=== PATIENT | male | born 1960 | race Caucasian/White ===

== ENCOUNTER 2019-03-04 20:16 | Inpatient (IN) | payer OTHER ==
[2019-03-04] MEDS ORDERED: morphine CARPU-JECT 4 MG/1 ML DISP.SYRIN IVPUSH ONE (20:49)
[2019-03-04] MEDS ORDERED: ONDANSETRON 4 MG/2 ML VIAL IVPB ONE (20:49)
[2019-03-04] MEDS ORDERED: ONDANSETRON 4 MG/2 ML VIAL ONE (20:50)
[2019-03-04] MEDS ORDERED: SODIUM CHLORIDE 1,000 ML IV ONE (20:50)
[2019-03-04] MEDS ORDERED: morphine SULFATE 4 MG/ML VIAL ONE ×2 (20:51→21:28)
[2019-03-04 21:02] LABS: HEMATOCRIT 47.4 % (35.4-49); HEMOGLOBIN 15.8 GM/dl (11.7-16.9); MCH 29.9 pg (25.7-33.7); MCHC 33.4 g/dl (32.0-35.9); MEAN CELL VOLUME 89.5 fl (80-96); MEAN PLT VOLUME 7.9 fl (7.5-11.1); PLATELET COUNT 248 K/MM3 (134-434); RDW 12.4 % (11.9-15.9); WHITE BLOOD COUNT 20.7 K/mm3 (4.0-10.8)
[2019-03-04 21:19] LABS: ALBUMIN 4.6 g/dl (3.4-5.0); BILIRUBIN,TOTAL 1.5 mg/dl (0.2-1); CALCIUM 9.5 mg/dl (8.5-10); TOT PROT 7.6 g/dl (6.4-8.2)
[2019-03-04 21:26] LABS: POTASSIUM 3.6 mmol/L (3.5-5.1)
[2019-03-04] MEDS ORDERED: morphine CARPU-JECT 2 MG/1 ML DISP.SYRIN IVPUSH ONE (21:27)
[2019-03-04 21:55] LABS: PLATELET ESTIMATE ADEQUATE
[2019-03-04] MEDS ORDERED: HYDROmorphone HCL CARPU-JECT 1 MG/1 ML DISP.SYRIN ONE (23:06)
[2019-03-04] MEDS ORDERED: HYDROmorphone HCL CARPU-JECT 1 MG/1 ML DISP.SYRIN IVPUSH ONE (23:07)
[2019-03-04] MEDS ORDERED: PIPERACILLIN/TAZOB 4.5 GM 4.5 GM in DEXTROSE 5%-WATER 100 ML IVPB ONE (23:10)
[2019-03-04] MEDS ORDERED: PIPERACILLIN/TAZOBACTAM 4.5 GM VIAL IVPB ONE (23:16)
[2019-03-04] MEDS ORDERED: SODIUM CHLORIDE 1,000 ML IV SCH (23:45)
--- NOTE | 2019-03-04 23:58 | PDOC ---
Documentation entered by Mason Boyd SCRIBE, acting as scribe for Quan Cantu MD. Quan Cantu MD: This documentation has been prepared by the Deb eldridge Elijah, SCRIBE, under my direction and personally reviewed by me in its entirety. I confirm that the documentation accurately reflects all work , treatment, procedures, and medical decision making performed by me. History of Present Illness - General Chief Complaint: Vomiting/Diarrhea Stated Complaint: N/V/D ABDOMINAL PAIN Time Seen by Provider: 03/04/19 20:23 History Source: Patient Exam Limitations: No Limitations - History of Present Illness Initial Comments: 03/04/19 20:47 Assessment and plan: This is a 58-year-old male who comes in complaining of abdominal pain. Abdominal pain was initially diffuse and now is more right lower quadrant.Patient also complaining of nausea and vomiting multiple times over the last 24 hours however no diarrhea. On my exam patient did have moderate tenderness with questionable rebound on the right lower quadrant. Workup initiated including CBC, comp, EKG, CT abdomen and pelvis to rule out appendicitis/diverticulitis. 03/04/19 20:57 HPI Patient in a 58 year old male with a significant past medical history of seizures, who presents to the ED with 1 day of vomiting and abdominal pain beginning. The patient reports that his symptoms onset at 3am at which time he had multiple episodes of and 2 small bowel movements. The patient described the abdominal pain diffuse discomfort and as if he is constipated. Denies fever, chills, cough, SOB, or chest pain. Denies any recent dysuria, frequency, urgency or hematuria. PAST MEDICAL HISTORY: Seizure disorder PAST SURGICAL HISTORY: Neurosurgery (spinal fusions) and Orthopedic surgery FAMILY HISTORY: no pertinent history SOCIAL HISTORY: Pt lives with family and is employed. MEDICATIONS: reviewed ALLERGIES: As per nursing notes ROS General: No fevers or chills, no weakness, no weight loss HEENT: No change in vision. No sore throat,. No ear pain CardioVascular: No chest pain or shortness of breath Respiratory:No cough, or wheezing. Gastrointestinal: +Multiple episodes of vomiting +constipation. No diarrhea or No rectal bleeding Genitourinary: No dysuria, hematuria, or frequency Musculoskeletal: +Diffuse Abdominal Pain Neurologic: No headache, vertigo, dizziness or loss of consciousness Psychiatric: nor depression Skin: No rashes or easy bruising Endocrine: no increased thirst or abnormal weight change Allergic: no skin or latex allergy All other systems reviewed and normal PE General: Well-nourished well-developed individual, no acute distress HEENT: Throat: +Dry mucous membranes. Tonsils normal, no erythema or exudate Neck: Supple, no meningeal signs, no lymphadenopathy Eyes::Pupils equal reactive and round, extraocular motion intact Chest: Nontender to palpation Cardiac: S1-S2 normal, regular rate and rhythm, no murmurs rubs or gallops Respiratory: Lungs clear to auscultation bilateral Abdomen: +Mild tenderness to palpation to abdominals. + Moderate tenderness on palpation to Right Lower quadrant with mild guarding and questioned rebounding. +Bowel sounds present but decreased. Extremities: Warm, dry, no cyanosis, clubbing, or edema Skin: No rashes Neuro: Alert and oriented x3, nonfocal exam, grossly intact. Psych: Normal mood and affect 03/04/19 23:57 Patient's CAT scan shows acute appendicitis with microperforation. Discussed with the surgeon Dr. Cabrera who will admit the patient and take him to the operating room in the morning Patient will be transferred to [facility] as that is where he will need to go to the OR. Past History - Past Medical History Allergies/Adverse Reactions: Allergies Allergy/AdvReac Type Severity Reaction Status Date / Time No Known Allergies Allergy Verified 03/04/19 20:20 Home Medications: Ambulatory Orders Citalopram Hydrobromide [Citalopram HBr] 20 mg PO DAILY 03/04/19 Lamotrigine 100 mg PO DAILY 03/04/19 Metoprolol/Hydrochlorothiazide [Metoprolol-Hctz 50-25 mg Tab] 1 each PO DAILY Oxycodone HCl/Acetaminophen [Percocet 10-325 mg Tablet] 1 each PO BID PRN ED Treatment Course - LABORATORY CBC & Chemistry Diagram: 03/04/19 20:35 03/04/19 20:35 - RADIOLOGY Radiology Studies Ordered: Category Date Time Status ABDOMEN & PELVIS CT WITH CONTR [CT] Stat CT Scan 03/04/19 20:44 Ordered *DC/Admit/Observation/Transfer Diagnosis at time of Disposition: Perforated appendix - Discharge Dispostion Condition at time of disposition: Good Decision to Admit order: Yes - Referrals - Patient Instructions - Post Discharge Activity
[2019-03-05] MEDS ORDERED: ONDANSETRON 4 MG/2 ML VIAL IVPUSH PRN ×2 (01:39→11:46)
[2019-03-05] MEDS ORDERED: LACTATED RINGERS SOLUTION 1,000 ML IV SCH (01:45)
[2019-03-05] MEDS: morphine SULFATE 4 MG/ML VIAL IVPUSH PRN ×4 (02:31→22:04)
[2019-03-05] MEDS ORDERED: HEPARIN NA (PORCINE) 5,000 UNITS/ML 1ML VIAL SQ SCH (06:00)
--- NOTE | 2019-03-05 06:50 | HP ---
Admitting History and Physical - Admission Chief Complaint: abdominal pain History of Present Illness: 58 yo male who comes in complaining of abdominal pain. Abdominal pain was initially diffuse and now is more right lower quadrant.Patient also complaining of nausea and vomiting multiple times over the last 24 hours however no diarrhea. On my exam patient did have moderate tenderness with questionable rebound on the right lower quadrant. History Source: Patient, Medical Record Limitations to Obtaining History: No Limitations - Smoking History Smoking history: Never smoked - Alcohol/Substance Use Hx Alcohol Use: No (QUIT 2 YRS AGO) History of Substance Use: reports: None - Social History Usual Living Arrangement: Yes: With Spouse ADL: Independent History of Recent Travel: No Home Medications - Allergies Allergies/Adverse Reactions: Allergies Allergy/AdvReac Type Severity Reaction Status Date / Time No Known Allergies Allergy Verified 03/04/19 20:20 - Home Medications Home Medications: Ambulatory Orders Citalopram Hydrobromide [Citalopram HBr] 20 mg PO DAILY 03/04/19 Lamotrigine 100 mg PO DAILY 03/04/19 Metoprolol/Hydrochlorothiazide [Metoprolol-Hctz 50-25 mg Tab] 1 each PO DAILY Oxycodone HCl/Acetaminophen [Percocet 10-325 mg Tablet] 1 each PO BID PRN Review of Systems - Review of Systems Constitutional: denies: Chills, Fever Eyes: denies: Blind Spots, Recent Change in Vision HENT: denies: Difficult Swallowing, Throat Pain, Toothache Neck: denies: Decreased ROM, Lumps Cardiovascular: denies: Chest Pain, Palpitations Respiratory: denies: Cough, SOB Gastrointestinal: denies: Abdominal Pain, Bloating Genitourinary: denies: Discharge, Dysuria Breasts: reports: No Symptoms Reported. denies: Pain Musculoskeletal: denies: Back Pain, Crepitus, Joint Swelling, Muscle Pain Integumentary: denies: Bruising, Lesions, Lump Neurological: denies: Seizure, Syncope Endocrine: denies: Unexplained Weight Gain, Unexplained Weight Loss Hematology/Lymphatic: denies: Easily Bruised, Excessive Bleeding Psychiatric: denies: Anxiety, Depression Physical Examination Vital Signs: Vital Signs Temperature 98 F 03/05/19 05:39 Pulse Rate 93 H 03/05/19 05:39 Respiratory Rate 20 06/18/19 05:39 Blood Pressure 137/70 06/18/19 05:39 O2 Sat by Pulse Oximetry (%) 95 03/05/19 01:00 Vital Signs Period Temp Pulse Resp BP Sys/Cerna Pulse Ox Last 24 Hr 98 F-100.1 F 72-93 18-20 122-156/70-94 95-99 Constitutional: Yes: Well Nourished, No Distress, Calm Eyes: Yes: Conjunctiva Clear, EOM Intact HENT: Yes: Atraumatic, Normocephalic Neck: Yes: Supple, Trachea Midline Cardiovascular: Yes: Regular Rate and Rhythm, S1, S2 Respiratory: Yes: Regular, CTA Bilaterally Gastrointestinal: Yes: Normal Bowel Sounds, Soft, Tenderness (RLQ), Tenderness, Rebound Renal/: No: CVA Tenderness - Left, CVA Tenderness - Right Musculoskeletal: No: Joint Stiffness, Joint Swelling Extremities: No: Cool, Cyanosis Edema: No Peripheral Pulses WNL: Yes Peripheral Pulses: Left Radial: 2+, Right Radial: 2+, Left Doralis Pedis: 2+, Right Dorsalis Pedis: 2+, Left Femoral: 2+, Right Femoral: 2+ Neurological: Yes: Alert, Oriented Psychiatric: Yes: Alert, Oriented Labs: CBC, BMP 03/04/19 20:35 03/04/19 20:35 Imaging - Results Cat Scan: Report Reviewed, Image Reviewed (perforated appendicitis) Problem List - Problems (1) Perforated appendix Assessment/Plan: 58 yo male with Acute ruptured appendicitis NPO and IVF hydration IV antibiotics Adequate analgesia Discussed with patient risks, benefits and alternatives of laparoscopic possible open ectomy, including but not limited to bleeding, infection, injury to adjacent structures, leak or injury, intraabdominal abscess, incisional hernia, need for further procedures, ; alternatives include antibiotics, delayed or no surgery - risks of this include failure of nonoperative therapy, perforation, sepsis, recurrence, . Patient desires to proceed with operation - will take to OR for above. Informed consent signed for same. Thank you for the opportunity to participate in the care of this patient. Code(s): K35.32 - ACUTE APPENDICITIS WITH PERF AND LOC PERITONITIS, W/O ABSCS (2) Leukocytosis Code(s): D72.829 - ELEVATED WHITE BLOOD CELL COUNT, UNSPECIFIED Qualifiers: Leukocytosis type: bandemia Qualified Code(s): D72.825 - Bandemia (3) Abdominal pain in male Code(s): R10.9 - UNSPECIFIED ABDOMINAL PAIN (4) RLQ abdominal tenderness Code(s): R10.813 - RIGHT LOWER QUADRANT ABDOMINAL TENDERNESS Qualifiers: Presence of rebound: present Qualified Code(s): R10.823 - Right lower quadrant rebound abdominal tenderness
[2019-03-05] MEDS ORDERED: ACETAMINOPHEN 1000 MG/100 ML VIAL (NON FORMULARY) IVPB ONE ×2 (08:55→14:22)
[2019-03-05] MEDS ORDERED: BUPIVACAINE HCL/PF 0.5% (5MG/ML) 10 ML VIAL ONE (09:05)
[2019-03-05] MEDS ORDERED: BENZOIN TINCTURE SWABSTICK TP ONE (09:05)
[2019-03-05] MEDS ORDERED: BUPIVACAINE HCL/PF (5 MG/ML) 30 ML VIAL IJ ONE ×2 (11:10)
[2019-03-05] MEDS ORDERED: ACETAMINOPHEN INJECTION 100 ML IVPB ONE (11:29)
[2019-03-05] MEDS ORDERED: IBUPROFEN 800 MG/8 ML IJ IVPB ONE ×2 (11:29→14:22)
--- NOTE | 2019-03-05 11:37 | OP ---
Operative Note - Note: Operative Date: 03/05/19 Pre-Operative Diagnosis: acute ruptured appendicitis Operation: laparoscopic appendectomy, pirmary umbilical hernia Findings: ruptured appendix and umbilcal hernia Post-Operative Diagnosis: Same as Pre-op Surgeon: Dale Cabrera Anesthesiologist/SANITARY LANDFILL SUPERVISOR: Lorenza Carey Anesthesia: General, Local Specimens Removed: umbilcal hernia sac and ruptured appendix Estimated Blood Loss (mls): 10 Drains, Volume Out (mls): 400 (mendoza removed ) Fluid Volume Replaced (mls): 500 Operative Report Dictated: Yes
[2019-03-05] MEDS: HEPARIN NA (PORCINE) 5,000 UNITS/ML 1ML VIAL SQ SCH ×2 (13:57→22:04)
[2019-03-05] MEDS: LACTATED RINGERS SOLUTION 1,000 ML IV SCH (13:57)
[2019-03-05] MEDS ORDERED: oxyCODONE HCL 5 MG TABLET PO PRN (14:21)
--- NOTE | 2019-03-05 14:42 | CON.ID ---
Consult Consult Specialty:: infectious diseases Referred by:: Reason for Consultation:: ac appendicits - History of Present Illness Chief Complaint: abd pain History of Present Illness: 58 yo male who comes in complaining of abdominal pain.pain was mainly in rt sided of the abd which was associated with nausea and vomiting patient was seen by surgery and underwent appendectomy - History Source History Provided By: Patient Limitations to Obtaining History: No Limitations - Alcohol/Substance Use Hx Alcohol Use: No (QUIT 2 YRS AGO) History of Substance Use: reports: None - Smoking History Smoking history: Never smoked - Social History ADL: Independent History of Recent Travel: No Home Medications - Allergies Allergies/Adverse Reactions: Allergies Allergy/AdvReac Type Severity Reaction Status Date / Time No Known Allergies Allergy Verified 03/04/19 20:20 - Home Medications Home Medications: Ambulatory Orders Citalopram Hydrobromide [Citalopram HBr] 20 mg PO DAILY 03/04/19 Lamotrigine 100 mg PO DAILY 03/04/19 Metoprolol/Hydrochlorothiazide [Metoprolol-Hctz 50-25 mg Tab] 1 each PO DAILY Oxycodone HCl/Acetaminophen [Percocet 10-325 mg Tablet] 1 each PO BID PRN Physical Exam Vital Signs: Vital Signs Temperature 98.1 F 03/05/19 13:50 Pulse Rate 79 03/05/19 13:50 Respiratory Rate 20 03/05/19 13:50 Blood Pressure 96/65 03/05/19 13:50 O2 Sat by Pulse Oximetry (%) 95 03/05/19 13:50 Labs: CBC, BMP 03/04/19 20:35 03/04/19 20:35
[2019-03-05] MEDS ORDERED: PIPERACILLIN/TAZOBACTAM 3.375 GM VIAL IVPB ONE (15:37)
[2019-03-05] MEDS ORDERED: DEXTROSE 5%-WATER - 50 ML IVPB ONE (15:38)
[2019-03-05] MEDS ORDERED: MIDAZOLAM HCL 2 MG/2 ML SINGLE DOSE VIAL ONE (15:44)
[2019-03-05] MEDS: PIPERACILLIN/TAZOB 3.375 GM 3.375 GM in DEXTROSE 5%-WATER - 50 ML IVPB SCH ×2 (15:46→18:44)
[2019-03-05] MEDS ORDERED: ACETAMINOPHEN 1000 MG/100 ML VIAL (NON FORMULARY) IVPB PRN (20:27)
[2019-03-05] MEDS: ACETAMINOPHEN 1000 MG/100 ML VIAL (NON FORMULARY) IVPB PRN (20:40)
[2019-03-06] MEDS ORDERED: PIPERACILLIN/TAZOBACTAM 3.375 GM VIAL IVPB ONE ×3 (01:01→17:36)
[2019-03-06] MEDS ORDERED: DEXTROSE 5%-WATER - 50 ML IVPB ONE ×3 (01:02→17:36)
[2019-03-06] MEDS: PIPERACILLIN/TAZOB 3.375 GM 3.375 GM in DEXTROSE 5%-WATER - 50 ML IVPB SCH ×3 (02:01→19:14)
[2019-03-06] MEDS: morphine SULFATE 4 MG/ML VIAL IVPUSH PRN ×2 (02:01→09:08)
[2019-03-06] MEDS: HEPARIN NA (PORCINE) 5,000 UNITS/ML 1ML VIAL SQ SCH ×3 (06:20→21:47)
[2019-03-06] MEDS: ACETAMINOPHEN 1000 MG/100 ML VIAL (NON FORMULARY) IVPB PRN ×3 (06:21→21:47)
[2019-03-06 08:51] LABS: BASO % 0.3 % (0-2.0); HEMATOCRIT 40.9 % (35.4-49); MCH 30.1 pg (25.7-33.7); MCHC 34.3 g/dl (32.0-35.9); MEAN CELL VOLUME 87.8 fl (80-96); MEAN PLT VOLUME 7.9 fl (7.5-11.1); MONO % 4.9 % (3.8-10.2); NEUT % 91.8 % (42.8-82.8); PLATELET COUNT 158 K/MM3 (134-434); RBC 4.66 M/mm3 (4.00-5.60); RDW 13.3 % (11.9-15.9); WHITE BLOOD COUNT 12.8 K/mm3 (4.0-10.0)
[2019-03-06 09:23] LABS: BILIRUBIN,TOTAL 1.8 mg/dL (0.2-1); CALCIUM 8.3 mg/dL (8.5-10.1); CREATININE 0.9 mg/dL (0.55-1.3); POTASSIUM 3.2 mmol/L (3.5-5.1); TOT PROT 5.8 g/dl (6.4-8.2)
[2019-03-06 11:07] LABS: ANISOCYTOSIS 0; MACROCYTOSIS 0; PLATELET ESTIMATE NORMAL
--- NOTE | 2019-03-06 12:19 | PN ---
Progress Note, Physician History of Present Illness: patient stable had spiked fever - Current Medication List Current Medications: Active Medications Acetaminophen (Ofirmev Injection -) 1,000 mg IVPB Q6H PRN PRN Reason: PAIN OR FEVER Last Admin: 03/06/19 06:21 Dose: 1,000 mg Fentanyl (Sublimaze Injection -) 50 mcg IVPUSH [id number] PRN PRN Reason: PAIN-PACU ORDER X 4 DOSES ONLY Last Admin: 03/05/19 11:55 Dose: 50 mcg Heparin Sodium (Porcine) (Heparin -) 5,000 unit SQ TID ANABELLE Last Admin: 03/06/19 06:20 Dose: 5,000 unit Lactated Ringer's (Lactated Ringers Solution) 1,000 mls @ 125 mls/hr IV ASDIR ANABELLE Last Admin: 03/05/19 13:57 Dose: 125 mls/hr Piperacillin Sod/Tazobactam (Sod 3.375 gm/ Dextrose) 50 mls @ 100 mls/hr IVPB Q8H-IV ANABELLE; Protocol Last Admin: 03/06/19 10:11 Dose: 100 mls/hr Morphine Sulfate (Morphine Sulfate) 4 mg IVPUSH Q4H PRN PRN Reason: PAIN LEVEL 7 - 10 Last Admin: 03/06/19 09:08 Dose: 4 mg Ondansetron HCl (Zofran Injection) 4 mg IVPUSH Q6H PRN PRN Reason: NAUSEA Oxycodone HCl (Roxicodone -) 5 mg PO Q4H PRN PRN Reason: PAIN LEVEL 1-5 Last Admin: 03/05/19 20:43 Dose: 5 mg - Objective Vital Signs: Vital Signs Temperature 101.9 F H 03/06/19 06:00 Pulse Rate 99 H 03/06/19 06:09 Respiratory Rate 20 03/06/19 06:09 Blood Pressure 134/71 03/06/19 06:09 O2 Sat by Pulse Oximetry (%) 95 03/05/19 21:00 Constitutional: Yes: Calm Eyes: Yes: Conjunctiva Clear Cardiovascular: Yes: Regular Rate and Rhythm Respiratory: Yes: Regular, CTA Bilaterally Gastrointestinal: Yes: Soft, Other Musculoskeletal: Yes: WNL Extremities: Yes: WNL Neurological: Yes: Alert, Oriented Psychiatric: Yes: Alert, Oriented Labs: CBC, BMP 03/06/19 07:24 03/06/19 07:24 Assessment/Plan Problem List - Problems (1) Perforated appendix Code(s): K35.32 - ACUTE APPENDICITIS WITH PERF AND LOC PERITONITIS, W/O ABSCS (2) Leukocytosis Code(s): D72.829 - ELEVATED WHITE BLOOD CELL COUNT, UNSPECIFIED Qualifiers: Leukocytosis type: bandemia Qualified Code(s): D72.825 - Bandemia (3) Abdominal pain in male Code(s): R10.9 - UNSPECIFIED ABDOMINAL PAIN (4) RLQ abdominal tenderness Code(s): R10.813 - RIGHT LOWER QUADRANT ABDOMINAL TENDERNESS Qualifiers: Presence of rebound: present Qualified Code(s): R10.823 - Right lower quadrant rebound abdominal tenderness wbc trending down plan continue abx monitor for fevers rest as per surgery still with pain
--- NOTE | 2019-03-06 13:05 | PN ---
Progress Note, Physician Chief Complaint: abdominal pain History of Present Illness: 58 yo male who comes in complaining of abdominal pain. Abdominal pain was initially diffuse and now is more right lower quadrant. He has been stable postoperatively but has been febrile. - Current Medication List Current Medications: Active Medications Acetaminophen (Ofirmev Injection -) 1,000 mg IVPB Q6H PRN PRN Reason: PAIN OR FEVER Last Admin: 03/06/19 06:21 Dose: 1,000 mg Fentanyl (Sublimaze Injection -) 50 mcg IVPUSH [id number] PRN PRN Reason: PAIN-PACU ORDER X 4 DOSES ONLY Last Admin: 03/05/19 11:55 Dose: 50 mcg Heparin Sodium (Porcine) (Heparin -) 5,000 unit SQ TID ANABELLE Last Admin: 03/06/19 06:20 Dose: 5,000 unit Lactated Ringer's (Lactated Ringers Solution) 1,000 mls @ 125 mls/hr IV ASDIR ANABELLE Last Admin: 03/05/19 13:57 Dose: 125 mls/hr Piperacillin Sod/Tazobactam (Sod 3.375 gm/ Dextrose) 50 mls @ 100 mls/hr IVPB Q8H-IV ANABELLE; Protocol Last Admin: 03/06/19 10:11 Dose: 100 mls/hr Morphine Sulfate (Morphine Sulfate) 4 mg IVPUSH Q4H PRN PRN Reason: PAIN LEVEL 7 - 10 Last Admin: 03/06/19 09:08 Dose: 4 mg Ondansetron HCl (Zofran Injection) 4 mg IVPUSH Q6H PRN PRN Reason: NAUSEA Oxycodone HCl (Roxicodone -) 5 mg PO Q4H PRN PRN Reason: PAIN LEVEL 1-5 Last Admin: 03/05/19 20:43 Dose: 5 mg - Objective Vital Signs: Vital Signs Temperature 101.9 F H 03/06/19 06:00 Pulse Rate 99 H 03/06/19 06:09 Respiratory Rate 20 03/06/19 06:09 Blood Pressure 134/71 03/06/19 06:09 O2 Sat by Pulse Oximetry (%) 95 03/05/19 21:00 Vital Signs Period Temp Pulse Resp BP Sys/Cerna Pulse Ox Last 24 Hr 98.1 F-103 F 79-99 16-20 96-134/54-71 10-98 Intake & Output 03/05/19 03/06/19 03/06/19 23:59 07:59 15:59 Intake Total 650 1075 Output Total 350 200 Balance 300 875 Intake: IV 500 875 Lactated Ringers Solution 500 875 1,000 ml @ 125 mls/hr IV ASDIR ANABELLE Rx#: [id number] IVPB 100 150 Oral 50 50 Output: Urine 350 200 Void 350 200 Other: Voiding Method Urinal Urinal Urinal Bowel Movement No No Constitutional: Yes: Well Nourished, No Distress, Calm Eyes: Yes: Conjunctiva Clear, EOM Intact HENT: Yes: Atraumatic, Normocephalic Neck: Yes: Supple, Trachea Midline Cardiovascular: Yes: Regular Rate and Rhythm, S1, S2 Respiratory: Yes: Regular, CTA Bilaterally Gastrointestinal: Yes: Normal Bowel Sounds, Soft, Abdomen, Obese, Distention, Tenderness (periumbilcal) ...Rectal Exam: No: Deferred Genitourinary: No: CVA Tenderness - Left, CVA Tenderness - Right Breast(s): Yes: Gynecomastia. No: Mass Musculoskeletal: No: Muscle Pain, Muscle Weakness Extremities: No: Cool, Cyanosis Edema: No Peripheral Pulses WNL: Yes Wound/Incision: Yes: Clean/Dry, Well Approximated, Open to air, Other Neurological: Yes: Alert, Oriented Psychiatric: Yes: Alert, Oriented Labs: CBC, BMP 03/06/19 07:24 03/06/19 07:24 Problem List - Problems (1) Perforated appendix Assessment/Plan: 58 yo male with Acute ruptured appendicitis POD#1 s/p laparoscopic appendectomy , gross fecal comtamination of the abdomen, now high post op fevers NPO and IVF hydration IV antibiotics Adequate analgesia Medicine consult evaluate for resuming antiseizure medication Dior culture f/u with ID Code(s): K35.32 - ACUTE APPENDICITIS WITH PERF AND LOC PERITONITIS, W/O ABSCS (2) Leukocytosis Code(s): D72.829 - ELEVATED WHITE BLOOD CELL COUNT, UNSPECIFIED Qualifiers: Leukocytosis type: bandemia Qualified Code(s): D72.825 - Bandemia (3) Abdominal pain in male Code(s): R10.9 - UNSPECIFIED ABDOMINAL PAIN (4) RLQ abdominal tenderness Code(s): R10.813 - RIGHT LOWER QUADRANT ABDOMINAL TENDERNESS Qualifiers: Presence of rebound: present Qualified Code(s): R10.823 - Right lower quadrant rebound abdominal tenderness
[2019-03-06] MEDS: LACTATED RINGERS SOLUTION 1,000 ML IV SCH (14:39)
--- NOTE | 2019-03-06 16:46 | PATH ---
Surgical Pathology Report Patient Name: MARK PAINTING [facility]. Rec. #: [id number] /Age/Gender: 1960 (Age: 58) / M Account: [id number] Location: [facility] R Taken: 03/05/2019 Received: 03/05/2019 Reported: 03/06/2019 Physicians: Dale Cabrera M.D. Specimen(s) Received A: UMBILICAL HERNIA SAC B: APPENDIX Clinical History Ruptured appendix Final Diagnosis A. UMBILICAL HERNIA SAC, REPAIR: FIBROADIPOSE TISSUE COMPATIBLE WITH HERNIA SAC. B. APPENDIX, APPENDECTOMY: MARKED ACUTE GANGRENOUS APPENDICITIS. Electronically Signed Ellen Iraheta M.D. Gross Description A. Received in formalin labeled "umbilical hernia sac," is a 2.2 x 1.1 x 1.0 cm alarcon-yellow portion of fibromembranous tissue with attached fat, consistent with a hernia sac. Clinical Haematologist sections are submitted in one cassette. B. Received in formalin labeled "appendix," is a 6 cm in length markedly torn and disrupted gangrenous-appearing appendix with a stapled margin of resection and minimal attached fat. The specimen displays multifocal defects. Sectioning reveals gangrenous tissue with fecal material within the lumen. The wall of the appendix averages 0.1 cm in thickness. Clinical Haematologist sections are submitted in one cassette. /03/05/2019 saudi03/05/2019
[2019-03-06] MEDS: ONDANSETRON 4 MG/2 ML VIAL IVPUSH SCH (18:17)
[2019-03-06] MEDS ORDERED: IBUPROFEN 400 MG TABLET (FP) PO PRN (19:35)
[2019-03-06] MEDS ORDERED: LACTATED RINGERS SOLUTION 1000 ML INFUS.BAG IV ONE (19:45)
[2019-03-07] MEDS: ONDANSETRON 4 MG/2 ML VIAL IVPUSH SCH ×5 (00:12→23:15)
[2019-03-07] MEDS: KCL 10 MEQ IVPB 10 MEQ/100 ML INFUS.BAG IVPB SCH ×3 (00:12→04:34)
--- NOTE | 2019-03-07 00:19 | CONSULT ---
Consult - text type - Consultation Consultation Note: Patient in a 58 year old male with a significant past medical history of seizures, who presents to the ED with 1 day of vomiting and abdominal pain. The patient reports that his symptoms onset at 3am at which time he had multiple episodes of vomiting and 2 small bowel movements. The patient described the abdominal pain diffuse discomfort and as if he is constipated. Denies fever, chills, cough, SOB, or chest pain. Denies any recent dysuria, frequency, urgency or hematuria. PAST MEDICAL HISTORY: Seizure disorder on Lamictil - last seizure about 2-3 yrs ago Petit mal PAST SURGICAL HISTORY: Neurosurgery (spinal fusions) and Orthopedic surgery FAMILY HISTORY: no pertinent history SOCIAL HISTORY: Pt lives with family and is employed. MEDICATIONS: reviewed Patient underwent laparoscopic appendectomy on 03/05/19 - found to have perforated Appendix, Post op course significant for persistent fever / abdominal pain / nausea & vomiting. He continues to be febrile and is not tolerating liquid PO. Vital Signs Period Temp Pulse Resp BP Sys/Cerna Pulse Ox Last 24 Hr 99.4 F-102.7 F 88-122 18-20 121-151/59-82 laying in bed son at bedside states less abdominal pain than prior to surgery neck - JVD heart Sd1/S2 lungs clear bilat abd ++tenderness RLQ / + distended +BS ext no calf tenderness no edema CBC, BMP 03/06/19 07:24 03/06/19 07:24 Active Medications Fentanyl (Sublimaze Injection -) 50 mcg IVPUSH [id number] PRN PRN Reason: PAIN-PACU ORDER X 4 DOSES ONLY Last Admin: 03/05/19 11:55 Dose: 50 mcg Heparin Sodium (Porcine) (Heparin -) 5,000 unit SQ TID ANABELLE Last Admin: 03/06/19 21:47 Dose: 5,000 unit Lactated Ringer's (Lactated Ringers Solution) 1,000 mls @ 125 mls/hr IV ASDIR ANABELLE Last Admin: 03/06/19 14:39 Dose: 125 mls/hr Piperacillin Sod/Tazobactam (Sod 3.375 gm/ Dextrose) 50 mls @ 100 mls/hr IVPB Q8H-IV ANABELLE; Protocol Last Admin: 03/06/19 19:14 Dose: 100 mls/hr Ibuprofen (Motrin -) 800 mg PO Q8H PRN PRN Reason: FEVER Morphine Sulfate (Morphine Sulfate) 4 mg IVPUSH Q4H PRN PRN Reason: PAIN LEVEL 7 - 10 Last Admin: 03/06/19 09:08 Dose: 4 mg Ondansetron HCl (Zofran Injection) 4 mg IVPUSH Q6H ANABELLE Last Admin: 03/07/19 00:12 Dose: Not Given Oxycodone HCl (Roxicodone -) 5 mg PO Q4H PRN PRN Reason: PAIN LEVEL 1-5 Last Admin: 03/05/19 20:43 Dose: 5 mg # Perforated Waldo / s/p lap appendectomy febrile - c/s done - tylenol 650 q 6H ID consulted - single abx -Zosyn if remains febrile will need CT of abd pain management ambulate as tolerated # Seizure disorder - petitie mal will resume lamictil when PO started # OA difficult ambulation due to OA will start neb treatment since patient will have limited ambulation
[2019-03-07] MEDS ORDERED: LORazepam 2 MG/ML SDV VIAL IVPUSH ONE (00:27)
[2019-03-07] MEDS: ACETAMINOPHEN 325 MG TABLET (FP) PO SCH ×2 (00:46→05:51)
[2019-03-07] MEDS ORDERED: PIPERACILLIN/TAZOBACTAM 3.375 GM VIAL IVPB ONE ×3 (01:37→17:04)
[2019-03-07] MEDS ORDERED: DEXTROSE 5%-WATER - 50 ML IVPB ONE ×3 (01:37→17:04)
[2019-03-07] MEDS: PIPERACILLIN/TAZOB 3.375 GM 3.375 GM in DEXTROSE 5%-WATER - 50 ML IVPB SCH ×3 (03:44→17:26)
[2019-03-07] MEDS: HEPARIN NA (PORCINE) 5,000 UNITS/ML 1ML VIAL SQ SCH ×3 (05:50→21:44)
[2019-03-07 06:51] LABS: BASO % 0.3 % (0-2.0); HEMATOCRIT 40.7 % (35.4-49); HEMOGLOBIN 14.1 GM/dL (11.7-16.9); LYMPH % 4.1 % (8-40); MCH 29.9 pg (25.7-33.7); MCHC 34.7 g/dl (32.0-35.9); MEAN CELL VOLUME 86.3 fl (80-96); MEAN PLT VOLUME 8.2 fl (7.5-11.1); MONO % 5.4 % (3.8-10.2); NEUT % 90.2 % (42.8-82.8); PLATELET COUNT 198 K/MM3 (134-434); RBC 4.71 M/mm3 (4.00-5.60); RDW 13.1 % (11.9-15.9); WHITE BLOOD COUNT 15.1 K/mm3 (4.0-10.0)
[2019-03-07 07:19] LABS: PHOSPHOROUS 1.5 mg/dL (2.5-4.9)
[2019-03-07] MEDS: ALBUTEROL SO4 2.5/IPRATROPIUM 0.5 INH SOL 3 ML VIAL.NEB. NEB SCH ×4 (08:14→19:55)
[2019-03-07] MEDS: PANTOPRAZOLE SODIUM 40 MG VIAL IVPUSH SCH (10:32)
[2019-03-07 12:10] VITALS: BMI 33.7
--- NOTE | 2019-03-07 12:27 | PN ---
Progress Note (short form) - Note Progress Note: 58 y/o male found lying in bed. Family present at bedside. Reports feeling feverish and vomiting x 2 this am. Denies pain and discomfort. Vital Signs Period Temp Pulse Resp BP Sys/Cerna Pulse Ox Last 24 Hr 99.0 F-102.7 F 93-122 20-20 127-151/75-93 92-94 CBC, BMP 03/07/19 05:56 03/06/19 07:24 HEENT- NL Neck- supple Lungs- CTAB Heart- S1/S2 Abd- obese, distended, tender Ext- no LE edema Active Medications Acetaminophen (Ofirmev Injection -) 1,000 mg IVPB Q6H PRN PRN Reason: FEVER Albuterol/Ipratropium (Duoneb -) 1 amp NEB RQID [facility] Last Admin: 03/07/19 11:14 Dose: Not Given Diphenhydramine HCl (Benadryl Injection -) 50 mg IVPUSH ONCE PRN PRN Reason: INSOMNIA Fentanyl (Sublimaze Injection -) 50 mcg IVPUSH [id number] PRN PRN Reason: PAIN-PACU ORDER X 4 DOSES ONLY Last Admin: 03/05/19 11:55 Dose: 50 mcg Heparin Sodium (Porcine) (Heparin -) 5,000 unit SQ TID [facility] Last Admin: 03/07/19 05:50 Dose: 5,000 unit Lactated Ringer's (Lactated Ringers Solution) 1,000 mls @ 125 mls/hr IV ASDIR ANABELLE Last Admin: 03/06/19 14:39 Dose: 125 mls/hr Piperacillin Sod/Tazobactam (Sod 3.375 gm/ Dextrose) 50 mls @ 100 mls/hr IVPB Q8H-IV ANABELLE; Protocol Last Admin: 03/07/19 10:32 Dose: 100 mls/hr Ibuprofen (Motrin -) 800 mg PO Q8H PRN PRN Reason: FEVER Morphine Sulfate (Morphine Sulfate) 4 mg IVPUSH Q4H PRN PRN Reason: PAIN LEVEL 7 - 10 Last Admin: 03/06/19 09:08 Dose: 4 mg Ondansetron HCl (Zofran Injection) 4 mg IVPUSH Q6H [facility] Last Admin: 03/07/19 10:33 Dose: 4 mg Oxycodone HCl (Roxicodone -) 5 mg PO Q4H PRN PRN Reason: PAIN LEVEL 1-5 Last Admin: 03/05/19 20:43 Dose: 5 mg Pantoprazole Sodium (Protonix Iv) 40 mg IVPUSH DAILY ANABELLE Last Admin: 03/07/19 10:32 Dose: 40 mg # Perforated Waldo / s/p lap appendectomy afebrile at present Cont tylenol 1000mg q 6 prn/ Motrin prn for fever ID consulted - single abx -Zosyn cont Zofran for nausea and vomiting GI consult for possible NG tube # pain management Morphine/ Oxycodone/ Fentanyl prn ambulate as tolerated # Insomnia IV Benadryl ordered # Seizure disorder - petit mal Neuro consult requested as pt NPO Unable to take Lamictal at this time # OA difficulty with ambulation due to OA
[2019-03-07] MEDS: LACTATED RINGERS SOLUTION 1,000 ML IV SCH ×2 (14:20→21:43)
[2019-03-07] MEDS: ACETAMINOPHEN 1000 MG/100 ML VIAL (NON FORMULARY) IVPB PRN ×2 (14:43→21:43)
--- NOTE | 2019-03-07 15:25 | CON.GI ---
Consult Consult Specialty:: GI: For Dr. Rincon who resumes coverage 03/08 Referred by:: Dr. Tilley Reason for Consultation:: "patient needs an NGT" - History of Present Illness Chief Complaint: Nausea, vomiting, abdominal pain History of Present Illness: 58M admitted for evaluation of abdominal pain 03/04. CT scan noted right hydronephrosis and appendicitis with microperforation. He had laparoscopic appendectomy performed 03/04. Has noted increasing abdominal distention since that time. he did not receive any opiate alalgesia yesterday. No BM / flatus as of yet. Developed abdominal pain, nausea, last night and vomited. NGT attempted today unsuccessfully by the nursing staff. Called by FREDY Ku to place an NGT. Patient vomited significant amount of dark liquid when NGT attempted. He had a colonoscopy a few months ago in [place]. - History Source History Provided By: Patient, Family Member, Medical Record Limitations to Obtaining History: No Limitations - Past Medical History Cardio/Vascular: Yes: HTN Hepatobiliary: Yes: Other (hereditary hemochromatosis and undergoes phlebotomy) Musculoskeletal: Yes: Osteoarthritis - Past Surgical History Past Surgical History: Yes: Joint Replacement (TKR bilaterally, right hip replacement) - Alcohol/Substance Use Hx Alcohol Use: Yes (QUIT 2 YRS AGO) History of Substance Use: reports: None - Smoking History Smoking history: Never smoked - Social History Usual Living Arrangement: With Spouse ADL: Independent 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 Place of : [facility] History of Recent Travel: No Home Medications - Allergies Allergies/Adverse Reactions: Allergies Allergy/AdvReac Type Severity Reaction Status Date / Time aloe Allergy Unknown Verified 03/07/19 15:28 - Home Medications Home Medications: Ambulatory Orders Citalopram Hydrobromide [Citalopram HBr] 20 mg PO DAILY 03/04/19 Lamotrigine 100 mg PO DAILY 03/04/19 Metoprolol/Hydrochlorothiazide [Metoprolol-Hctz 50-25 mg Tab] 1 each PO DAILY Oxycodone HCl/Acetaminophen [Percocet 10-325 mg Tablet] 1 each PO BID PRN Family Disease History - Family Disease History Family Disease History: Other: Father (: 57: Liver cancer (HH)), Mother ( Alive: healthy), Brother (4, healthy), Sister (3, healthy), Son (2, healthy (1 HH mutation carrier) ), Daughter (1, healthy) Other Family History: No family h/o colon cancer Review of Systems - Review of Systems Constitutional: reports: Chills Cardiovascular: denies: Chest Pain Respiratory: denies: SOB Gastrointestinal: reports: Abdominal Pain, Bloating, Nausea, Vomiting. denies: Melena, Rectal Bleeding Physical Exam-GI Vital Signs: Vital Signs Temperature 100.8 F H 03/07/19 14:38 Pulse Rate 91 H 03/07/19 14:38 Respiratory Rate 18 03/07/19 14:38 Blood Pressure 121/73 03/07/19 14:38 O2 Sat by Pulse Oximetry (%) 92 L 03/07/19 09:00 Constitutional: Yes: Calm Eyes: No: Sclera Icterus Cardiovascular: Yes: Regular Rate and Rhythm. No: Murmur Respiratory: Yes: CTA Bilaterally Gastrointestinal Inspection: Yes: Distention, Scars (trochar scar, umbilical surgical scar.) ...Auscultate: Yes: Hypoactive Bowel Sounds (higher pitched) ...Palpate: Yes: Soft, Tenderness (TTP RLQ) ...Percussion: Yes: Tympanitic Edema: No (No LE edema) Neurological: Yes: Alert Labs: CBC, BMP 03/07/19 05:56 03/06/19 07:24 Hepatic Panel Total Bilirubin 1.8 mg/dL (0.2-1) H 03/06/19 07:24 AST 11 U/L (15-37) L 03/06/19 07:24 ALT 13 U/L (13-61) 03/06/19 07:24 Alkaline Phosphatase 44 U/L (45-117) L 03/06/19 07:24 Albumin 3.0 g/dl (3.4-5.0) L 03/06/19 07:24 Problem List - Problems (1) Vomiting Assessment/Plan: Following laparoscopic appendectomy with post op fever Tympany and hypoactive, higher pitches bowel sounds suggestive of ileus vs. developing bowel obstruction NGT placed through Left nare without difficulty and tethered to his nose at the 55cm gama. air dominguez auscultated and dark gastric content suctioned. About 300cc was suctioned. Placed on medium wall suction Advise: CT abdomen without contrast ordered Surgical follow-up ID follow-up Aspiration precautions Code(s): R11.10 - VOMITING, UNSPECIFIED
--- NOTE | 2019-03-07 15:39 | PN ---
Progress Note, Physician History of Present Illness: continues to spike fever now withh ng tube for ct scan today - Current Medication List Current Medications: Active Medications Acetaminophen (Ofirmev Injection -) 1,000 mg IVPB Q6H PRN PRN Reason: FEVER Last Admin: 03/07/19 14:43 Dose: 1,000 mg Albuterol/Ipratropium (Duoneb -) 1 amp NEB RQID [facility] Last Admin: 03/07/19 11:14 Dose: Not Given Diphenhydramine HCl (Benadryl Injection -) 50 mg IVPUSH ONCE PRN PRN Reason: INSOMNIA Fentanyl (Sublimaze Injection -) 50 mcg IVPUSH [id number] PRN PRN Reason: PAIN-PACU ORDER X 4 DOSES ONLY Last Admin: 03/05/19 11:55 Dose: 50 mcg Heparin Sodium (Porcine) (Heparin -) 5,000 unit SQ TID [facility] Last Admin: 03/07/19 14:19 Dose: 5,000 unit Lactated Ringer's (Lactated Ringers Solution) 1,000 mls @ 125 mls/hr IV ASDIR [facility] Last Admin: 03/07/19 14:20 Dose: 125 mls/hr Piperacillin Sod/Tazobactam (Sod 3.375 gm/ Dextrose) 50 mls @ 100 mls/hr IVPB Q8H-IV [facility]; Protocol Last Admin: 03/07/19 10:32 Dose: 100 mls/hr Ibuprofen (Motrin -) 800 mg PO Q8H PRN PRN Reason: FEVER Morphine Sulfate (Morphine Sulfate) 4 mg IVPUSH Q4H PRN PRN Reason: PAIN LEVEL 7 - 10 Last Admin: 03/06/19 09:08 Dose: 4 mg Ondansetron HCl (Zofran Injection) 4 mg IVPUSH Q6H [facility] Last Admin: 03/07/19 10:33 Dose: 4 mg Oxycodone HCl (Roxicodone -) 5 mg PO Q4H PRN PRN Reason: PAIN LEVEL 1-5 Last Admin: 03/05/19 20:43 Dose: 5 mg Pantoprazole Sodium (Protonix Iv) 40 mg IVPUSH DAILY [facility] Last Admin: 03/07/19 10:32 Dose: 40 mg - Objective Vital Signs: Vital Signs Temperature 100.8 F H 06/20/19 14:38 Pulse Rate 91 H 03/07/19 14:38 Respiratory Rate 18 03/07/19 14:38 Blood Pressure 121/73 03/07/19 14:38 O2 Sat by Pulse Oximetry (%) 92 L 03/07/19 09:00 Constitutional: Yes: Calm, Mild Distress, Obese Cardiovascular: Yes: Regular Rate and Rhythm Respiratory: Yes: Regular, CTA Bilaterally Gastrointestinal: Yes: Other (absent bowel sound,ng tube in place) Musculoskeletal: Yes: WNL Extremities: Yes: WNL Neurological: Yes: Alert, Oriented Psychiatric: Yes: Alert, Oriented Labs: CBC, BMP 03/07/19 05:56 03/06/19 07:24 Assessment/Plan Problem List - Problems (1) Perforated appendix Code(s): K35.32 - ACUTE APPENDICITIS WITH PERF AND LOC PERITONITIS, W/O ABSCS (2) Leukocytosis Code(s): D72.829 - ELEVATED WHITE BLOOD CELL COUNT, UNSPECIFIED Qualifiers: Leukocytosis type: bandemia Qualified Code(s): D72.825 - Bandemia (3) Abdominal pain in male Code(s): R10.9 - UNSPECIFIED ABDOMINAL PAIN (4) RLQ abdominal tenderness Code(s): R10.813 - RIGHT LOWER QUADRANT ABDOMINAL TENDERNESS Qualifiers: Presence of rebound: present Qualified Code(s): R10.823 - Right lower quadrant rebound abdominal tenderness wbc trending down plan continue abx await for ct scan close watch rest as per the team
--- NOTE | 2019-03-07 19:17 | CONSULT ---
Consult - text type - Consultation Consultation Note: NEUROLOGY CONSULT GREATLY APPRECIATED: Events reviewed and discussed with Asia HUNTER and GERMÁN Rojas. This 58 yo RH man is retired and is here from from [place]. PMH sig for: seizure disorder, depression maintained on lamictal (short-acting? ) 100 mg qd and citalopram 10 mg qd. Surgical hx includes: LS surgery, B/L CTR, B/L TKR Hx of seizures since childhood accident, "petit-mal" in which he has a few second warning of "imbalance" and then eyes "roll back" and he looses consciousness. Was previously followed by neurologist in [place], and last seizure was approximately 6 years ago with a trial discontinuation of seizure medication. Admitted after acute abdomen, found with appendiceal abscess requiring surgical intervention and now NPO with NG tube. Has been without seizure medication since Monday (4 days). ROS significant for residual nocturnal pains in back, knees, hands that interrupt sleep. Notes previous EMG studies of legs done that were "normal." + bruxism FH++ 3 children with "growing pains" and bruxism WBC 20.7-> 15.1 MCV 86.3 KAREN: Cor reg. No bruit. Neck supple. Neg SLR. NGT in situ. NEURO: Awake, alert, responsive. OX [facility]. March 07, 2019. TRUMP CNII-CNXII: EOM's full. Full addison. No facial. Motor: No drift. Strength normal. Reflexes normal in arms, reduced in KJ's and AJ's B/L. Toes silent. Coordination: No FTN dystaxia Sensation: Normal to vibration. Romberg - Gait: Stiff, sl wide-based. Impression: Essentially normal neurological exam Toxic-Metabolic Encephalopathy (peritonitis) Seizure disorder by history Nocturnal parasthesia, bruxism suggest contribution of Restless Limbs Syndrome (RLS) Suggest: Continue antibiotics and IV hydration per ID Load leveteracitam 1 gram IVP, then leveteracitam 500 mg BID IVP then PO as soon as allowed. Check Fe++, TIBC, Iron, Ferritin Neuro f/u as outpatient for EEG, EMG's of the arms/legs and Rx for RLS Thank you very much, Boby White MD
[2019-03-07] MEDS ORDERED: levETIRAcetam 500 MG/5 ML INJECTION VIAL IVPB ONE (19:30)
[2019-03-07] MEDS: BENZOCAINE/MENTH/CETYLPYRD CL 1 EACH LOZENGE MM PRN (20:47)
[2019-03-08] MEDS ORDERED: DEXTROSE 5%-WATER - 50 ML IVPB ONE ×3 (02:53→15:13)
[2019-03-08] MEDS ORDERED: PIPERACILLIN/TAZOBACTAM 3.375 GM VIAL IVPB ONE ×3 (02:53→15:12)
[2019-03-08] MEDS: PIPERACILLIN/TAZOB 3.375 GM 3.375 GM in DEXTROSE 5%-WATER - 50 ML IVPB SCH ×3 (02:56→17:31)
[2019-03-08] MEDS: ONDANSETRON 4 MG/2 ML VIAL IVPUSH SCH ×4 (05:33→23:10)
[2019-03-08] MEDS: HEPARIN NA (PORCINE) 5,000 UNITS/ML 1ML VIAL SQ SCH ×3 (05:33→21:07)
[2019-03-08 07:46] LABS: BASO % 0.5 % (0-2.0); EOS % 0.5 % (0-4.5); HEMATOCRIT 38.1 % (35.4-49); HEMOGLOBIN 12.9 GM/dL (11.7-16.9); LYMPH % 6.1 % (8-40); MCH 29.8 pg (25.7-33.7); MCHC 33.8 g/dl (32.0-35.9); MEAN CELL VOLUME 88.3 fl (80-96); MEAN PLT VOLUME 7.5 fl (7.5-11.1); MONO % 6.6 % (3.8-10.2); NEUT % 86.3 % (42.8-82.8); PLATELET COUNT 234 K/MM3 (134-434); RBC 4.32 M/mm3 (4.00-5.60); RDW 12.8 % (11.9-15.9); WHITE BLOOD COUNT 11.7 K/mm3 (4.0-10.0)
[2019-03-08] MEDS: ALBUTEROL SO4 2.5/IPRATROPIUM 0.5 INH SOL 3 ML VIAL.NEB. NEB SCH ×4 (07:52→20:23)
[2019-03-08 08:15] LABS: ALBUMIN 2.6 g/dl (3.4-5.0); BILIRUBIN,TOTAL 1.1 mg/dL (0.2-1); BLOOD UREA NITROGEN 12.1 mg/dL (7-18); CALCIUM 8.1 mg/dL (8.5-10.1); CREATININE 0.9 mg/dL (0.55-1.3); POTASSIUM 3.2 mmol/L (3.5-5.1); TOT PROT 5.5 g/dl (6.4-8.2)
--- NOTE | 2019-03-08 08:37 | PN ---
Progress Note, Physician Chief Complaint: abdominal pain History of Present Illness: 58 yo male who comes in complaining of abdominal pain. Abdominal pain was initially diffuse and now is more right lower quadrant. He has been stable postoperatively but has been febrile. - Current Medication List Current Medications: Active Medications Acetaminophen (Tylenol -) 650 mg PO Q6H PRN PRN Reason: PAIN LEVEL 1-5 Albuterol/Ipratropium (Duoneb -) 1 amp NEB RQID [facility] Last Admin: 03/08/19 07:52 Dose: 1 amp Benzocaine/Menthol (Cepacol Lozenge -) 1 each MM Q4H PRN PRN Reason: SORE THROAT Last Admin: 03/07/19 20:47 Dose: 1 each Diphenhydramine HCl (Benadryl Injection -) 50 mg IVPUSH ONCE PRN PRN Reason: INSOMNIA Last Admin: 03/07/19 23:15 Dose: 50 mg Fentanyl (Sublimaze Injection -) 50 mcg IVPUSH [id number] PRN PRN Reason: PAIN-PACU ORDER X 4 DOSES ONLY Last Admin: 03/05/19 11:55 Dose: 50 mcg Heparin Sodium (Porcine) (Heparin -) 5,000 unit SQ TID [facility] Last Admin: 03/08/19 05:33 Dose: 5,000 unit Piperacillin Sod/Tazobactam (Sod 3.375 gm/ Dextrose) 50 mls @ 100 mls/hr IVPB Q8H-IV A[facility]; Protocol Last Admin: 03/08/19 02:56 Dose: 100 mls/hr Potassium Chloride (Potassium Chloride 10 Meq Premix Ivpb -) 10 meq in 100 mls @ 100 mls/hr IVPB Q60M [facility] Stop: 03/08/19 11:29 Potassium Chloride/Dextrose/Sod Cl (D5-1/2ns+20 Meq Kcl -) 20 meq in 1,000 mls @ 125 mls/hr IV ASDIR ANA[facility] Ibuprofen (Motrin -) 600 mg PO Q6H PRN PRN Reason: PAIN LEVEL 1-5 Levetiracetam (Keppra Injection -) 500 mg IVPB BID [facility] Morphine Sulfate (Morphine Sulfate) 4 mg IVPUSH Q4H PRN PRN Reason: PAIN LEVEL 7 - 10 Last Admin: 03/06/19 09:08 Dose: 4 mg Ondansetron HCl (Zofran Injection) 4 mg IVPUSH Q6H [facility] Last Admin: 03/08/19 05:33 Dose: 4 mg Oxycodone HCl (Roxicodone -) 5 mg PO Q4H PRN PRN Reason: PAIN LEVEL 1-5 Last Admin: 03/05/19 20:43 Dose: 5 mg Pantoprazole Sodium (Protonix Iv) 40 mg IVPUSH DAILY [facility] Last Admin: 03/07/19 10:32 Dose: 40 mg - Objective Vital Signs: Vital Signs Temperature 100.2 F H 03/08/19 06:37 Pulse Rate 71 03/08/19 06:37 Respiratory Rate 18 03/08/19 06:37 Blood Pressure 149/82 03/08/19 06:37 O2 Sat by Pulse Oximetry (%) 96 03/07/19 21:00 Vital Signs Period Temp Pulse Resp BP Sys/Cerna Pulse Ox Last 24 Hr 99.0 F-101.9 F 71-100 18-20 121-149/72-93 92-96 Intake & Output 03/07/19 03/08/19 03/08/19 23:59 07:59 15:59 Intake Total 1900 725 Output Total 450 300 Balance 1450 725 -300 Intake: IV 1750 725 Lactated Ringers Solution 1750 725 1,000 ml @ 125 mls/hr IV ASDIR [facility] Rx#: [id number] IVPB 150 Output: Gastric Drainage 450 300 Other: Voiding Method Urinal Urinal # Unmeasured Voids Void 2 1 Constitutional: Yes: No Distress, Calm, Obese Eyes: Yes: Conjunctiva Clear, EOM Intact HENT: Yes: Atraumatic, Normocephalic Neck: Yes: Supple, Trachea Midline Cardiovascular: Yes: Regular Rate and Rhythm, S1, S2 Respiratory: Yes: Regular, CTA Bilaterally Gastrointestinal: Yes: Normal Bowel Sounds, Soft, Abdomen, Obese, Distention, Tenderness (periumbilcal) ...Rectal Exam: Yes: Deferred. No: Guaiac Positive Genitourinary: No: CVA Tenderness - Left, CVA Tenderness - Right Breast(s): No: Mass, Nipple Inversion Musculoskeletal: No: Joint Swelling, Muscle Pain Extremities: No: Cool, Cyanosis Edema: No Peripheral Pulses WNL: Yes Peripheral Pulses: Left Radial: 2+, Right Radial: 2+, Left Doralis Pedis: 2+, Right Dorsalis Pedis: 2+, Left Femoral: 2+, Right Femoral: 2+ Wound/Incision: Yes: Clean/Dry, Well Approximated, Open to air Neurological: Yes: Alert, Oriented Psychiatric: Yes: Alert, Oriented Labs: CBC, BMP 03/08/19 06:34 03/08/19 06:34 Microbiology 03/06/19 20:00 Blood - Peripheral Venous Blood Culture - Preliminary NO GROWTH OBTAINED AFTER 24 HOURS, INCUBATION TO CONTINUE FOR 4 DAYS. 03/06/19 18:00 Blood - Peripheral Venous Blood Culture - Preliminary NO GROWTH OBTAINED AFTER 24 HOURS, INCUBATION TO CONTINUE FOR 4 DAYS. Problem List - Problems (1) Perforated appendix Assessment/Plan: 58 yo male with Acute ruptured appendicitis POD#3 s/p laparoscopic appendectomy , gross fecal comtamination of the abdomen, now resolving fevers. CT scan of the abdomen had no unexpected findings, no organized collections. Appreciate ID , Neurology and Medicine management input. Now he is passing flatus and has improved bowel sounds. D/C NGT clears now, full for dinner and will advance supplement postssium IV and PO continue IV antibiotics Adequate analgesia Dior culture fevers will follow Code(s): K35.32 - ACUTE APPENDICITIS WITH PERF AND LOC PERITONITIS, W/O ABSCS (2) Leukocytosis Code(s): D72.829 - ELEVATED WHITE BLOOD CELL COUNT, UNSPECIFIED Qualifiers: Leukocytosis type: bandemia Qualified Code(s): D72.825 - Bandemia (3) Abdominal pain in male Code(s): R10.9 - UNSPECIFIED ABDOMINAL PAIN (4) RLQ abdominal tenderness Code(s): R10.813 - RIGHT LOWER QUADRANT ABDOMINAL TENDERNESS Qualifiers: Presence of rebound: present Qualified Code(s): R10.823 - Right lower quadrant rebound abdominal tenderness
[2019-03-08] MEDS ORDERED: POTASSIUM CHLORIDE TABS 20 MEQ TABLET.ER (FP) PO ONE (08:38)
[2019-03-08] MEDS: D5-1/2NS+20 MEQ KCL - 20 MEQ/1,000 ML INFUS.BAG IV SCH ×2 (09:32→21:10)
[2019-03-08] MEDS: PANTOPRAZOLE SODIUM 40 MG VIAL IVPUSH SCH (09:33)
[2019-03-08] MEDS: ACETAMINOPHEN 325 MG TABLET (FP) PO PRN ×3 (09:42→23:32)
[2019-03-08] MEDS: KCL 10 MEQ IVPB 10 MEQ/100 ML INFUS.BAG IVPB SCH ×3 (10:43→14:25)
[2019-03-08] MEDS: levETIRAcetam 500 MG/5 ML INJECTION VIAL IVPB SCH ×2 (11:52→21:06)
--- NOTE | 2019-03-08 13:46 | PN ---
Progress Note, Physician History of Present Illness: feels much better still spiking fevers ct scan seen result noted - Current Medication List Current Medications: Active Medications Acetaminophen (Tylenol -) 650 mg PO Q6H PRN PRN Reason: PAIN LEVEL 1-5 Last Admin: 03/08/19 09:42 Dose: 650 mg Albuterol/Ipratropium (Duoneb -) 1 amp NEB RQID [facility] Last Admin: 03/08/19 11:21 Dose: 1 amp Benzocaine/Menthol (Cepacol Lozenge -) 1 each MM Q4H PRN PRN Reason: SORE THROAT Last Admin: 03/07/19 20:47 Dose: 1 each Diphenhydramine HCl (Benadryl Injection -) 50 mg IVPUSH ONCE PRN PRN Reason: INSOMNIA Last Admin: 03/07/19 23:15 Dose: 50 mg Fentanyl (Sublimaze Injection -) 50 mcg IVPUSH [id number] PRN PRN Reason: PAIN-PACU ORDER X 4 DOSES ONLY Last Admin: 03/05/19 11:55 Dose: 50 mcg Heparin Sodium (Porcine) (Heparin -) 5,000 unit SQ TID [facility] Last Admin: 03/08/19 13:11 Dose: 5,000 unit Piperacillin Sod/Tazobactam (Sod 3.375 gm/ Dextrose) 50 mls @ 100 mls/hr IVPB Q8H-IV [facility]; Protocol Last Admin: 03/08/19 09:33 Dose: 100 mls/hr Potassium Chloride/Dextrose/Sod Cl (D5-1/2ns+20 Meq Kcl -) 20 meq in 1,000 mls @ 125 mls/hr IV ASDIR [facility] Last Admin: 03/08/19 09:32 Dose: 125 mls/hr Ibuprofen (Motrin -) 600 mg PO Q6H PRN PRN Reason: PAIN LEVEL 1-5 Levetiracetam (Keppra Injection -) 500 mg IVPB BID [facility] Last Admin: 03/08/19 11:52 Dose: 500 mg Morphine Sulfate (Morphine Sulfate) 4 mg IVPUSH Q4H PRN PRN Reason: PAIN LEVEL 7 - 10 Last Admin: 03/06/19 09:08 Dose: 4 mg Ondansetron HCl (Zofran Injection) 4 mg IVPUSH Q6H [facility] Last Admin: 03/08/19 13:09 Dose: 4 mg Oxycodone HCl (Roxicodone -) 5 mg PO Q4H PRN PRN Reason: PAIN LEVEL 1-5 Last Admin: 03/05/19 20:43 Dose: 5 mg Pantoprazole Sodium (Protonix Iv) 40 mg IVPUSH DAILY [facility] Last Admin: 03/08/19 09:33 Dose: 40 mg - Objective Vital Signs: Vital Signs Temperature 99.2 F 03/08/19 09:02 Pulse Rate 81 03/08/19 09:02 Respiratory Rate 18 03/08/19 09:02 Blood Pressure 144/81 03/08/19 09:02 O2 Sat by Pulse Oximetry (%) 95 03/08/19 09:00 Constitutional: Yes: No Distress, Calm Cardiovascular: Yes: Regular Rate and Rhythm Respiratory: Yes: Regular, Poor Air Entry (bases) Gastrointestinal: Yes: Soft, Hypoactive Bowel Sounds Musculoskeletal: Yes: WNL Extremities: Yes: WNL Wound/Incision: Yes: Clean/Dry Neurological: Yes: Alert, Oriented Psychiatric: Yes: Alert, Oriented Labs: CBC, BMP 03/08/19 06:34 03/08/19 06:34 Assessment/Plan Problem List - Problems (1) Perforated appendix Code(s): K35.32 - ACUTE APPENDICITIS WITH PERF AND LOC PERITONITIS, W/O ABSCS (2) Leukocytosis Code(s): D72.829 - ELEVATED WHITE BLOOD CELL COUNT, UNSPECIFIED Qualifiers: Leukocytosis type: bandemia Qualified Code(s): D72.825 - Bandemia (3) Abdominal pain in male Code(s): R10.9 - UNSPECIFIED ABDOMINAL PAIN (4) RLQ abdominal tenderness Code(s): R10.813 - RIGHT LOWER QUADRANT ABDOMINAL TENDERNESS Qualifiers: Presence of rebound: present Qualified Code(s): R10.823 - Right lower quadrant rebound abdominal tenderness wbc trending down plan continue abx monitor fevers rest as per the team monitor wbc
--- NOTE | 2019-03-08 16:08 | PN ---
Progress Note (short form) - Note Progress Note: 58 y/o male found lying in bed. States that he slept well last night and tolerated liquid breakfast. No BM yet but feels the urge. Vital Signs Period Temp Pulse Resp BP Sys/Cerna Pulse Ox Last 24 Hr 99.0 F-101.9 F 71-88 18-20 130-149/72-82 95-96 CBC, BMP 03/08/19 06:34 03/08/19 06:34 HEENT- NL Neck- Supple Lungs- CTAB Heart- S1/S2 Abd- soft, tenderness on palpation Ext- No LE edema Active Medications Acetaminophen (Tylenol -) 650 mg PO Q6H PRN PRN Reason: PAIN LEVEL 1-5 Last Admin: 03/08/19 09:42 Dose: 650 mg Albuterol/Ipratropium (Duoneb -) 1 amp NEB RQID [facility] Last Admin: 03/08/19 11:21 Dose: 1 amp Benzocaine/Menthol (Cepacol Lozenge -) 1 each MM Q4H PRN PRN Reason: SORE THROAT Last Admin: 03/07/19 20:47 Dose: 1 each Diphenhydramine HCl (Benadryl Injection -) 50 mg IVPUSH ONCE PRN PRN Reason: INSOMNIA Last Admin: 03/07/19 23:15 Dose: 50 mg Fentanyl (Sublimaze Injection -) 50 mcg IVPUSH [id number] PRN PRN Reason: PAIN-PACU ORDER X 4 DOSES ONLY Last Admin: 03/05/19 11:55 Dose: 50 mcg Heparin Sodium (Porcine) (Heparin -) 5,000 unit SQ TID [facility] Last Admin: 03/08/19 13:11 Dose: 5,000 unit Piperacillin Sod/Tazobactam (Sod 3.375 gm/ Dextrose) 50 mls @ 100 mls/hr IVPB Q8H-IV [facility]; Protocol Last Admin: 03/08/19 09:33 Dose: 100 mls/hr Potassium Chloride/Dextrose/Sod Cl (D5-1/2ns+20 Meq Kcl -) 20 meq in 1,000 mls @ 125 mls/hr IV ASDIR [facility] Last Admin: 03/08/19 09:32 Dose: 125 mls/hr Ibuprofen (Motrin -) 600 mg PO Q6H PRN PRN Reason: PAIN LEVEL 1-5 Levetiracetam (Keppra Injection -) 500 mg IVPB BID [facility] Last Admin: 03/08/19 11:52 Dose: 500 mg Morphine Sulfate (Morphine Sulfate) 4 mg IVPUSH Q4H PRN PRN Reason: PAIN LEVEL 7 - 10 Last Admin: 03/06/19 09:08 Dose: 4 mg Ondansetron HCl (Zofran Injection) 4 mg IVPUSH Q6H [facility] Last Admin: 03/08/19 13:09 Dose: 4 mg Oxycodone HCl (Roxicodone -) 5 mg PO Q4H PRN PRN Reason: PAIN LEVEL 1-5 Last Admin: 03/05/19 20:43 Dose: 5 mg Pantoprazole Sodium (Protonix Iv) 40 mg IVPUSH DAILY [facility] Last Admin: 03/08/19 09:33 Dose: 40 mg # Perforated Waldo / s/p lap appendectomy Cont Tylenol 1000mg q 6 prn/ Motrin prn for fever ID consulted - single abx -Zosyn cont Zosyn prn Monitor WBC # pain management Morphine/ Oxycodone/ Fentanyl prn ambulate as tolerated # Insomnia IV Benadryl Prn #Hypopotassiumenia Replace Potassium Monitor lytes # Seizure disorder - petit mal Neuro consult appreciated Keppra IVPB BID # OA difficulty with ambulation due to OA
[2019-03-08] MEDS: LORazepam 1 MG TABLET PO PRN (21:08)
[2019-03-09] MEDS ORDERED: PIPERACILLIN/TAZOBACTAM 3.375 GM VIAL IVPB ONE ×3 (02:02→16:01)
[2019-03-09] MEDS ORDERED: DEXTROSE 5%-WATER - 50 ML IVPB ONE ×3 (02:03→16:01)
[2019-03-09] MEDS: PIPERACILLIN/TAZOB 3.375 GM 3.375 GM in DEXTROSE 5%-WATER - 50 ML IVPB SCH ×3 (02:13→17:28)
[2019-03-09] MEDS: ONDANSETRON 4 MG/2 ML VIAL IVPUSH SCH ×4 (03:57→23:36)
[2019-03-09 04:09] LABS: SERUM IRON SATURATION 13 % (15-55); TOTAL IRON BINDING CAPACITY 207 ug/dL (250-450); UIBC 180 ug/dL (111-343)
[2019-03-09] MEDS: HEPARIN NA (PORCINE) 5,000 UNITS/ML 1ML VIAL SQ SCH ×3 (06:23→23:33)
--- NOTE | 2019-03-09 06:57 | OP ---
DATE OF OPERATION: 03/05/2019 PREOPERATIVE DIAGNOSIS: Acute ruptured appendicitis and umbilical hernia. POSTOPERATIVE DIAGNOSIS: Acute ruptured appendicitis and umbilical hernia. PROCEDURE: Laparoscopic appendectomy, primary umbilical hernia repair. ATTENDING SURGEON: Dale Cabrera MD CHIEF DIETITIAN: No one. WAREHOUSE ASSEMBLY WORKER: Lorenza Carey CRNA ANESTHESIA TYPE: General with local, local consisting of 0.5% Marcaine a total of 10 mL given at the port site. ESTIMATED BLOOD LOSS: 10 mL. INTRAVENOUS FLUID ADMINISTERED: Crystalloid, 500 mL. DRAINAGE: Urine, 400 mL, Edwards removed postoperatively. BRIEF FINDINGS: Patient had a ruptured appendix, right lower quadrant, with gross fecal contamination of the abdomen. Patient was also noted to have an umbilical hernia, which was primary repaired at the umbilicus with a figure-of-8. . INDICATIONS: Patient is a 58-year-old male presenting with acute onset of abdominal pain. He is visiting from [place]. He was counseled regarding risks, benefits, and alternatives after CT scan revealed a ruptured appendicitis for laparoscopic appendectomy. He signed informed consent and was taken to the procedure. DESCRIPTION OF PROCEDURE: The patient was brought to the operating room, placed in supine position on the operating table. Lower extremities had SCDs placed to compression. Patient was induced with general anesthesia, endotracheally intubated. Patient had anterior abdominal wall clipped, prepped, and draped in standard surgical fashion. At which point, we began first with a Kellen entry intothe umbilical port in the infraumbilical position. It was scribed on the skin and incised with a 15-blade scalpel, deepened and widened through subcutaneous tissue. Care was taken to dissect down to the midline fascia of the rectus muscles, which were elevated into the field, and a blunt entry was made into the abdomen. A finger was used to clear abdominal viscera and protect, and a 12-mm Kellen port was then installed into the abdomen, and pneumoperitoneum was established to 15 mmHg. Upon establishment of pneumoperitoneum, a laparoscope was introduced into the abdomen inspecting the entry site which appeared atraumatic. Additional port sites were placed at the suprapubic position in the midline as well as in the left lower quadrant at the anterior superior iliac spine, midclavicular line. We then turned our attention to the cecum, which appeared to have plastering and fat stranding along the right lateral abdomen. It was taken down with graspers and then identified gross fecal contamination of ruptured appendix which appeared necrotic at least mid-body. The tinea coli was followed back to the base of the appendix, and the appendix base was controlled, and then, stapled with an Endo ADITYA stapler size 45-mm from the umbilical port after resighting the camera to the left lower quadrant. After controlling the base of the appendix, the remainder of the appendix was taken with LigaSure device along the mesoappendix with care taken to protect the bowel and other structures away. The remnant of the ruptured appendix was then retrieved from the abdomen using EndoCatch bag from the umbilical port. It was passed off for pathologic diagnosis. Any gross fecal contamination was also removed in the EndoCatch bag. Upon reviewing the area, the area was then irrigated with approximately 1 L of sterile irrigation fluid to remove all fecal contamination in the right lower quadrant of the pelvis as well as the pouch of Ramses. Once clear, the patient was repositioned and additional irrigation fluid was removed. Decision to not leave a drain was based on the appearance of the abdomen on the completion of the case. Patient then had the ports removed under direct visualization and closed at the skin after release of the pneumoperitoneum. The umbilical port was closed to the umbilical hernia with 0 Vicryl in a figure-of-8. Patient was awoken from general anesthesia having tolerated the procedure well after Dermabond was placed in the skin. He was returned to recovery in stable condition with the plan to admit for IV antibiotics. All instrument counts were correct. MD ANDREW Bowen/[id number]
[2019-03-09] MEDS: ALBUTEROL SO4 2.5/IPRATROPIUM 0.5 INH SOL 3 ML VIAL.NEB. NEB SCH ×4 (07:55→20:00)
[2019-03-09 07:56] LABS: BASO % 1.2 % (0-2.0); EOS % 2.1 % (0-4.5); HEMATOCRIT 38.3 % (35.4-49); HEMOGLOBIN 12.9 GM/dL (11.7-16.9); MCH 29.6 pg (25.7-33.7); MCHC 33.6 g/dl (32.0-35.9); MEAN CELL VOLUME 87.9 fl (80-96); MEAN PLT VOLUME 7.4 fl (7.5-11.1); MONO % 10.2 % (3.8-10.2); NEUT % 79.5 % (42.8-82.8); PLATELET COUNT 282 K/MM3 (134-434); RBC 4.36 M/mm3 (4.00-5.60); RDW 13.2 % (11.9-15.9); WHITE BLOOD COUNT 12.9 K/mm3 (4.0-10.0)
[2019-03-09 08:14] LABS: BLOOD UREA NITROGEN 4.8 mg/dL (7-18); CALCIUM 8.1 mg/dL (8.5-10.1); CREATININE 0.8 mg/dL (0.55-1.3); POTASSIUM 3.4 mmol/L (3.5-5.1)
[2019-03-09] MEDS: PANTOPRAZOLE SODIUM 40 MG VIAL IVPUSH SCH (09:22)
[2019-03-09] MEDS: D5-1/2NS+20 MEQ KCL - 20 MEQ/1,000 ML INFUS.BAG IV SCH (09:26)
[2019-03-09] MEDS: levETIRAcetam 500 MG/5 ML INJECTION VIAL IVPB SCH ×2 (10:22→23:32)
[2019-03-09] MEDS: LORazepam 1 MG TABLET PO PRN (10:33)
[2019-03-09] MEDS ORDERED: POTASSIUM CHLORIDE TABS 20 MEQ TABLET.ER (FP) PO ONE (12:39)
[2019-03-09] MEDS: KCL 10 MEQ IVPB 10 MEQ/100 ML INFUS.BAG IVPB SCH ×3 (13:04→18:13)
[2019-03-09] MEDS ORDERED: D5-1/2NS+20 MEQ KCL - 20 MEQ/1,000 ML INFUS.BAG IV SCH (13:30)
--- NOTE | 2019-03-09 14:26 | PN ---
Progress Note (short form) - Note Progress Note: ^^^^^^^^^^^^^^^^^ Covering medical note....For Dr Tilley ^^^^^^^^^^^^^^^^^ ^^^^^^ Current Medications Acetaminophen (Tylenol -) 650 mg PO Q6H PRN PRN Reason: PAIN LEVEL 1-5 Last Admin: 03/08/19 23:32 Dose: 650 mg Albuterol/Ipratropium (Duoneb -) 1 amp NEB RQID [facility] Last Admin: 03/09/19 11:39 Dose: 1 amp Benzocaine/Menthol (Cepacol Lozenge -) 1 each MM Q4H PRN PRN Reason: SORE THROAT Last Admin: 03/07/19 20:47 Dose: 1 each Diphenhydramine HCl (Benadryl Injection -) 50 mg IVPUSH ONCE PRN PRN Reason: INSOMNIA Last Admin: 03/07/19 23:15 Dose: 50 mg Fentanyl (Sublimaze Injection -) 50 mcg IVPUSH [id number] PRN PRN Reason: PAIN-PACU ORDER X 4 DOSES ONLY Last Admin: 03/05/19 11:55 Dose: 50 mcg Heparin Sodium (Porcine) (Heparin -) 5,000 unit SQ TID [facility] Last Admin: 03/09/19 13:04 Dose: 5,000 unit Piperacillin Sod/Tazobactam (Sod 3.375 gm/ Dextrose) 50 mls @ 100 mls/hr IVPB Q8H-IV [facility]; Protocol Last Admin: 03/09/19 09:22 Dose: 100 mls/hr Potassium Chloride (Potassium Chloride 10 Meq Premix Ivpb -) 10 meq in 100 mls @ 100 mls/hr IVPB Q60M [facility] Stop: 03/09/19 15:44 Last Admin: 03/09/19 13:04 Dose: 100 mls/hr Potassium Chloride/Dextrose/Sod Cl (D5-1/2ns+20 Meq Kcl -) 20 meq in 1,000 mls @ 75 mls/hr IV ASDIR [facility] Ibuprofen (Motrin -) 600 mg PO Q6H PRN PRN Reason: PAIN LEVEL 1-5 Levetiracetam (Keppra Injection -) 500 mg IVPB BID [facility] Last Admin: 03/09/19 10:22 Dose: 500 mg Lorazepam (Ativan -) 1 mg PO Q12H PRN PRN Reason: ANXIETY Last Admin: 03/09/19 10:33 Dose: 1 mg Morphine Sulfate (Morphine Sulfate) 4 mg IVPUSH Q4H PRN PRN Reason: PAIN LEVEL 7 - 10 Last Admin: 03/06/19 09:08 Dose: 4 mg Ondansetron HCl (Zofran Injection) 4 mg IVPUSH Q6H [facility] Last Admin: 03/09/19 10:24 Dose: 4 mg Oxycodone HCl (Roxicodone -) 5 mg PO Q4H PRN PRN Reason: PAIN LEVEL 1-5 Last Admin: 03/05/19 20:43 Dose: 5 mg Pantoprazole Sodium (Protonix Iv) 40 mg IVPUSH DAILY [facility] Last Admin: 03/09/19 09:22 Dose: 40 mg Laboratory Results - last 24 hr 03/07/19 03/09/19 03/09/19 20:00 06:15 06:15 WBC 12.9 H RBC 4.36 Hgb 12.9 Hct 38.3 MCV 87.9 MCH 29.6 MCHC 33.6 RDW 13.2 Plt Count 282 D MPV 7.4 L Absolute Neuts (auto) 10.2 H Neutrophils % 79.5 Lymphocytes % 7.0 L Monocytes % 10.2 Eosinophils % 2.1 D Basophils % 1.2 Nucleated RBC % 0 Sodium 143 Potassium 3.4 L Chloride 106 Carbon Dioxide 29 Anion Gap 8 BUN 4.8 L Creatinine 0.8 Est GFR (CKD-EPI)AfAm 112.53 Est GFR (CKD-EPI)NonAf 97.10 Random Glucose 108 H Calcium 8.1 L Iron 27 L TIBC 207 L Iron Saturation 13 L Unsaturated IBC 180 Vital Signs Temperature 98.7 F 03/09/19 13:31 Pulse Rate 80 03/09/19 13:31 Respiratory Rate 20 03/09/19 13:31 Blood Pressure 131/73 03/09/19 13:31 O2 Sat by Pulse Oximetry (%) 94 L 03/09/19 09:00 CC: feels "bloated"...had multiple BMs' yesterday but none today. ``````````````````````````````````` skin--NL color eyes--anicteric heart--RR abd--distended; BS faint; RLQ tenderness neuro--alert; coherent; moves all E's ```````````````````````````````````````` Summ > abd distention--post-op; more distended & bloated today. He has been cleared to take PO; he has not c/o n-v, but has no appetite > s/p AP--for perf appendicitis; now afebrile. CT suggests some intestinal content spillage into peritoneum. PLAN: Cont Abs; may need f/u study to check for resolution. > seizure dz--has been placed on Keppra by Neuro > Low potassium--has received KCL today post blood draw; recheck in AM ``````````````````````````````````````````` Dr Hoang
[2019-03-09] MEDS: ACETAMINOPHEN 325 MG TABLET (FP) PO PRN (16:13)
--- NOTE | 2019-03-09 17:16 | PN ---
Progress Note, Physician History of Present Illness: Pt seen and examined. Events noted. Today c/o weakness but no episodes of n/v and has minimal abd cramping. Currently afebrile, Tmax 100.2F. No other complaints. - Current Medication List Current Medications: Active Medications Acetaminophen (Tylenol -) 650 mg PO Q6H PRN PRN Reason: PAIN LEVEL 1-5 Last Admin: 03/09/19 16:13 Dose: 650 mg Albuterol/Ipratropium (Duoneb -) 1 amp NEB RQID [facility] Last Admin: 03/09/19 15:52 Dose: 1 amp Benzocaine/Menthol (Cepacol Lozenge -) 1 each MM Q4H PRN PRN Reason: SORE THROAT Last Admin: 03/07/19 20:47 Dose: 1 each Diphenhydramine HCl (Benadryl Injection -) 50 mg IVPUSH ONCE PRN PRN Reason: INSOMNIA Last Admin: 03/07/19 23:15 Dose: 50 mg Fentanyl (Sublimaze Injection -) 50 mcg IVPUSH [id number] PRN PRN Reason: PAIN-PACU ORDER X 4 DOSES ONLY Last Admin: 03/05/19 11:55 Dose: 50 mcg Heparin Sodium (Porcine) (Heparin -) 5,000 unit SQ TID [facility] Last Admin: 03/09/19 13:04 Dose: 5,000 unit Piperacillin Sod/Tazobactam (Sod 3.375 gm/ Dextrose) 50 mls @ 100 mls/hr IVPB Q8H-IV [facility]; Protocol Last Admin: 03/09/19 09:22 Dose: 100 mls/hr Potassium Chloride/Dextrose/Sod Cl (D5-1/2ns+20 Meq Kcl -) 20 meq in 1,000 mls @ 75 mls/hr IV ASDIR [facility] Last Admin: 03/09/19 14:41 Dose: 75 mls/hr Ibuprofen (Motrin -) 600 mg PO Q6H PRN PRN Reason: PAIN LEVEL 1-5 Levetiracetam (Keppra Injection -) 500 mg IVPB BID [facility] Last Admin: 03/09/19 10:22 Dose: 500 mg Lorazepam (Ativan -) 1 mg PO Q12H PRN PRN Reason: ANXIETY Last Admin: 03/09/19 10:33 Dose: 1 mg Morphine Sulfate (Morphine Sulfate) 4 mg IVPUSH Q4H PRN PRN Reason: PAIN LEVEL 7 - 10 Last Admin: 03/06/19 09:08 Dose: 4 mg Ondansetron HCl (Zofran Injection) 4 mg IVPUSH Q6H [facility] Last Admin: 03/09/19 16:13 Dose: 4 mg Oxycodone HCl (Roxicodone -) 5 mg PO Q4H PRN PRN Reason: PAIN LEVEL 1-5 Last Admin: 03/05/19 20:43 Dose: 5 mg Pantoprazole Sodium (Protonix Iv) 40 mg IVPUSH DAILY [facility] Last Admin: 03/09/19 09:22 Dose: 40 mg - Objective Vital Signs: Vital Signs Temperature 98.7 F 03/09/19 13:31 Pulse Rate 80 03/09/19 13:31 Respiratory Rate 20 03/09/19 13:31 Blood Pressure 131/73 03/09/19 13:31 O2 Sat by Pulse Oximetry (%) 94 L 03/09/19 09:00 Constitutional: Yes: No Distress, Calm Cardiovascular: Yes: Regular Rate and Rhythm Respiratory: Yes: Regular Gastrointestinal: Yes: Normal Bowel Sounds, Soft Genitourinary: Yes: WNL Extremities: Yes: WNL Integumentary: Yes: WNL Neurological: Yes: Alert, Oriented Labs: CBC, BMP 03/09/19 06:15 03/09/19 06:15 Microbiology 03/06/19 20:00 Blood - Peripheral Venous Blood Culture - Preliminary NO GROWTH OBTAINED AFTER 48 HOURS, INCUBATION TO CONTINUE FOR 3 DAYS. 03/06/19 18:00 Blood - Peripheral Venous Blood Culture - Preliminary NO GROWTH OBTAINED AFTER 48 HOURS, INCUBATION TO CONTINUE FOR 3 DAYS. 03/06/19 19:20 Urine - Urine Clean Catch Urine Culture - Final NO GROWTH OBTAINED - ....Imaging Cat Scan: Report Reviewed Problem List - Problems (1) Leukocytosis Code(s): D72.829 - ELEVATED WHITE BLOOD CELL COUNT, UNSPECIFIED Qualifiers: Leukocytosis type: bandemia Qualified Code(s): D72.825 - Bandemia (2) Perforated appendix Code(s): K35.32 - ACUTE APPENDICITIS WITH PERF AND LOC PERITONITIS, W/O ABSCS (3) Vomiting Code(s): R11.10 - VOMITING, UNSPECIFIED Assessment/Plan Appendicitis with rupture s/p appendectomy Fecal peritonitis Fever Leukocytosis -- currently afebrile, temps appear to be trending down, wbc still mildly elevated -- continue antibiotics -- repeat cbc, continue monitor
[2019-03-09] MEDS: morphine SULFATE 4 MG/ML VIAL IVPUSH PRN (23:45)
[2019-03-10] MEDS ORDERED: DEXTROSE 5%-WATER - 50 ML IVPB ONE ×2 (01:01→08:32)
[2019-03-10] MEDS ORDERED: PIPERACILLIN/TAZOBACTAM 3.375 GM VIAL IVPB ONE ×2 (01:01→08:31)
[2019-03-10] MEDS: PIPERACILLIN/TAZOB 3.375 GM 3.375 GM in DEXTROSE 5%-WATER - 50 ML IVPB SCH ×2 (01:06→09:15)
[2019-03-10] MEDS: ACETAMINOPHEN 325 MG TABLET (FP) PO PRN ×2 (01:06→16:47)
[2019-03-10] MEDS: ONDANSETRON 4 MG/2 ML VIAL IVPUSH SCH ×4 (03:56→23:43)
--- NOTE | 2019-03-10 05:47 | DS ---
Physical Examination Vital Signs: Vital Signs Temperature 99.5 F 03/10/19 05:41 Pulse Rate 72 03/10/19 05:41 Respiratory Rate 20 03/10/19 05:41 Blood Pressure 120/74 03/10/19 05:41 O2 Sat by Pulse Oximetry (%) 94 L 03/09/19 09:00 Constitutional: Yes: Obese Labs: CBC, BMP 03/09/19 06:15 03/09/19 06:15 Discharge Summary Reason For Visit: RUPTURE OF APPENDIX Current Active Problems Abdominal pain in male (Acute) Leukocytosis (Acute) Perforated appendix (Acute) RLQ abdominal tenderness (Acute) Vomiting (Acute) Condition: Improved - Instructions Diet, Activity, Other Instructions: Postoperative instructions: You had a laparoscopic appendectomy on 03/05/[address] Dale Cabrera of [facility]. Activity: Resume your usual activities gradually, but no heavy exertion or lifting more than 10-15 pounds for 1 month. Remove dressings 48 hours after surgery; sticky tapes underneath will fall off by themselves. You may shower daily starting then, just pat the incision areas dry. No bath or swimming until skin incisions have healed. Eat lightly at first, but advance to your usual diet as tolerated. Pain: For pain, you may use and alternate Tylenol (acetaminophen) 1-2 pills and/ or ibuprofen 200 mg (1-3 pills) every 6 hours each as needed; this means that you can take one OR the other at 3-hour intervals. If you are prescribed a Tylenol/narcotic combination for severe pain, use it instead of plain Tylenol as needed and switch back when your pain starts decreasing. Do not take more than 4000mg of acetaminophen in a day. Take medications as prescribed or indicated on the labeling. Follow-up: Call Dr. Cabrera' office at [phone] to make your postop appointment (Monday in approximately 2 weeks after surgery). Clinic is held in the [facility] on the first floor of [facility]. Call the office if you have: * increasing pain not responsive to pain medication * fever of 101F or higher * vomiting * unusual or increasing bleeding or drainage from wounds * increasing redness or swelling at wound sites * inability to urinate Also, see your primary medical doctor within 1-2 weeks. Disposition: HOME - Home Medications Comprehensive Discharge Medication List: Ambulatory Orders Citalopram Hydrobromide [Citalopram HBr] 20 mg PO DAILY 03/04/19 Lamotrigine 100 mg PO DAILY 03/04/19 Metoprolol/Hydrochlorothiazide [Metoprolol-Hctz 50-25 mg Tab] 1 each PO DAILY Oxycodone HCl/Acetaminophen [Percocet 10-325 mg Tablet] 1 each PO BID PRN Amox-Tr/K Cl [Augmentin - 875Mg Tablet] 1 tab PO BID 10 Days #20 tablet Oxycodone HCl/Acetaminophen [Percocet 5/325 -] 1 tab PO Q6H 5 Days #40 tab MDD 5 03/09/19
[2019-03-10] MEDS: HEPARIN NA (PORCINE) 5,000 UNITS/ML 1ML VIAL SQ SCH ×3 (07:11→21:35)
[2019-03-10] MEDS: ALBUTEROL SO4 2.5/IPRATROPIUM 0.5 INH SOL 3 ML VIAL.NEB. NEB SCH ×4 (07:40→19:50)
[2019-03-10 07:59] LABS: BASO % 0.7 % (0-2.0); EOS % 2.9 % (0-4.5); HEMATOCRIT 37.2 % (35.4-49); HEMOGLOBIN 12.8 GM/dL (11.7-16.9); LYMPH % 7.7 % (8-40); MCH 30.1 pg (25.7-33.7); MCHC 34.4 g/dl (32.0-35.9); MEAN CELL VOLUME 87.7 fl (80-96); MEAN PLT VOLUME 7.2 fl (7.5-11.1); MONO % 12.5 % (3.8-10.2); NEUT % 76.2 % (42.8-82.8); PLATELET COUNT 300 K/MM3 (134-434); RBC 4.24 M/mm3 (4.00-5.60); RDW 13.1 % (11.9-15.9); WHITE BLOOD COUNT 14.8 K/mm3 (4.0-10.0)
[2019-03-10 08:21] LABS: BLOOD UREA NITROGEN 6.6 mg/dL (7-18); CALCIUM 8.2 mg/dL (8.5-10.1); CREATININE 0.7 mg/dL (0.55-1.3); POTASSIUM 3.8 mmol/L (3.5-5.1)
[2019-03-10] MEDS: PANTOPRAZOLE SODIUM 40 MG VIAL IVPUSH SCH (09:16)
--- NOTE | 2019-03-10 10:06 | PN ---
Progress Note, Physician Chief Complaint: abdominal pain History of Present Illness: 58 yo male who comes in complaining of abdominal pain. Abdominal pain was initially diffuse and now is more right lower quadrant. He has been stable postoperatively but has been febrile. but has intermittent vague abdominal pain. - Current Medication List Current Medications: Active Medications Acetaminophen (Tylenol -) 650 mg PO Q6H PRN PRN Reason: PAIN LEVEL 1-5 Last Admin: 03/10/19 01:06 Dose: 650 mg Albuterol/Ipratropium (Duoneb -) 1 amp NEB RQID [facility] Last Admin: 03/10/19 07:40 Dose: 1 amp Benzocaine/Menthol (Cepacol Lozenge -) 1 each MM Q4H PRN PRN Reason: SORE THROAT Last Admin: 03/07/19 20:47 Dose: 1 each Diphenhydramine HCl (Benadryl Injection -) 50 mg IVPUSH ONCE PRN PRN Reason: INSOMNIA Last Admin: 03/07/19 23:15 Dose: 50 mg Diphenhydramine HCl (Benadryl Injection -) 50 mg IVPUSH HS PRN PRN Reason: INSOMNIA Last Admin: 03/10/19 00:54 Dose: 50 mg Fentanyl (Sublimaze Injection -) 50 mcg IVPUSH [id number] PRN PRN Reason: PAIN-PACU ORDER X 4 DOSES ONLY Last Admin: 03/05/19 11:55 Dose: 50 mcg Heparin Sodium (Porcine) (Heparin -) 5,000 unit SQ TID [facility] Last Admin: 03/10/19 07:11 Dose: 5,000 unit Piperacillin Sod/Tazobactam (Sod 3.375 gm/ Dextrose) 50 mls @ 100 mls/hr IVPB Q8H-IV [facility]; Protocol Last Admin: 03/10/19 09:15 Dose: 100 mls/hr Ibuprofen (Motrin -) 600 mg PO Q6H PRN PRN Reason: PAIN LEVEL 1-5 Levetiracetam (Keppra Injection -) 500 mg IVPB BID [facility] Last Admin: 03/09/19 23:32 Dose: 500 mg Lorazepam (Ativan -) 1 mg PO Q12H PRN PRN Reason: ANXIETY Last Admin: 03/09/19 10:33 Dose: 1 mg Morphine Sulfate (Morphine Sulfate) 4 mg IVPUSH Q4H PRN PRN Reason: PAIN LEVEL 7 - 10 Last Admin: 03/09/19 23:45 Dose: 4 mg Ondansetron HCl (Zofran Injection) 4 mg IVPUSH Q6H [facility] Last Admin: 03/10/19 03:56 Dose: 4 mg Oxycodone HCl (Roxicodone -) 5 mg PO Q4H PRN PRN Reason: PAIN LEVEL 1-5 Last Admin: 03/05/19 20:43 Dose: 5 mg Pantoprazole Sodium (Protonix Iv) 40 mg IVPUSH DAILY [facility] Last Admin: 03/10/19 09:16 Dose: 40 mg - Objective Vital Signs: Vital Signs Temperature 99.5 F 03/10/19 05:41 Pulse Rate 72 03/10/19 05:41 Respiratory Rate 20 03/10/19 05:41 Blood Pressure 120/74 03/10/19 05:41 O2 Sat by Pulse Oximetry (%) 95 03/09/19 21:00 Vital Signs Period Temp Pulse Resp BP Sys/Cerna Pulse Ox Last 24 Hr 98.7 F-100.3 F 72-86 20-20 120-132/73-80 95 Intake & Output 03/09/19 03/10/19 03/10/19 23:59 07:59 15:59 Intake Total 480 Balance 480 Intake: Oral 480 Other: Voiding Method Toilet # Unmeasured Voids Void 3 2 Bowel Movement No Constitutional: Yes: Well Nourished, No Distress, Calm, Obese Eyes: Yes: Conjunctiva Clear, EOM Intact HENT: Yes: Atraumatic, Normocephalic Neck: Yes: Supple, Trachea Midline Cardiovascular: Yes: Regular Rate and Rhythm, S1, S2 Respiratory: Yes: Regular, CTA Bilaterally Gastrointestinal: Yes: Normal Bowel Sounds, Soft, Abdomen, Obese, Distention ( mild). No: Tenderness, Tenderness, Epigastrium ...Rectal Exam: Yes: Deferred Genitourinary: No: CVA Tenderness - Left, CVA Tenderness - Right Musculoskeletal: No: Joint Stiffness Extremities: No: Cool, Cyanosis Peripheral Pulses WNL: Yes Peripheral Pulses: Left Radial: 2+, Right Radial: 2+, Left Doralis Pedis: 2+, Right Dorsalis Pedis: 2+, Left Femoral: 2+, Right Femoral: 2+ Integumentary: No: Jaundice, Skin Tear Wound/Incision: Yes: Clean/Dry, Well Approximated, Open to air Neurological: Yes: Alert, Oriented Psychiatric: Yes: Alert, Oriented Labs: CBC, BMP 03/10/19 06:45 03/10/19 06:45 Problem List - Problems (1) Perforated appendix Assessment/Plan: 58 yo male with Acute ruptured appendicitis POD#5 s/p laparoscopic appendectomy , gross fecal contamination of the abdomen, now resolving fevers. previous CT scan of the abdomen had no organized collections. He is passing flatus and has improved bowel sounds. But yesterday had worseing abdominal pain and has a rising WBC. He may now have an intraabdominal collection Continue diet NPO after midnight repeat CTA/P and IR consider drainage continue IV antibiotics Adequate analgesia will follow Code(s): K35.32 - ACUTE APPENDICITIS WITH PERF AND LOC PERITONITIS, W/O ABSCS (2) Leukocytosis Code(s): D72.829 - ELEVATED WHITE BLOOD CELL COUNT, UNSPECIFIED Qualifiers: Leukocytosis type: bandemia Qualified Code(s): D72.825 - Bandemia (3) Abdominal pain in male Code(s): R10.9 - UNSPECIFIED ABDOMINAL PAIN (4) RLQ abdominal tenderness Code(s): R10.813 - RIGHT LOWER QUADRANT ABDOMINAL TENDERNESS Qualifiers: Presence of rebound: present Qualified Code(s): R10.823 - Right lower quadrant rebound abdominal tenderness
[2019-03-10] MEDS: levETIRAcetam 500 MG/5 ML INJECTION VIAL IVPB SCH ×2 (10:16→21:35)
[2019-03-10] MEDS: morphine SULFATE 4 MG/ML VIAL IVPUSH PRN ×4 (10:17→23:43)
--- NOTE | 2019-03-10 11:58 | PN ---
Progress Note (short form) - Note Progress Note: ~~~~~~~~~~~~~~ Medical cover for Dr Tilley ~~~~~~~~~~~~~~~~~~ Current Medications Acetaminophen (Tylenol -) 650 mg PO Q6H PRN PRN Reason: PAIN LEVEL 1-5 Last Admin: 03/10/19 01:06 Dose: 650 mg Albuterol/Ipratropium (Duoneb -) 1 amp NEB RQID [facility] Last Admin: 03/10/19 11:36 Dose: 1 amp Benzocaine/Menthol (Cepacol Lozenge -) 1 each MM Q4H PRN PRN Reason: SORE THROAT Last Admin: 03/07/19 20:47 Dose: 1 each Diphenhydramine HCl (Benadryl Injection -) 50 mg IVPUSH ONCE PRN PRN Reason: INSOMNIA Last Admin: 03/07/19 23:15 Dose: 50 mg Diphenhydramine HCl (Benadryl Injection -) 50 mg IVPUSH HS PRN PRN Reason: INSOMNIA Last Admin: 03/10/19 00:54 Dose: 50 mg Fentanyl (Sublimaze Injection -) 50 mcg IVPUSH [id number] PRN PRN Reason: PAIN-PACU ORDER X 4 DOSES ONLY Last Admin: 03/05/19 11:55 Dose: 50 mcg Heparin Sodium (Porcine) (Heparin -) 5,000 unit SQ TID [facility] Last Admin: 03/10/19 07:11 Dose: 5,000 unit Piperacillin Sod/Tazobactam (Sod 3.375 gm/ Dextrose) 50 mls @ 100 mls/hr IVPB Q8H-IV [facility]; Protocol Last Admin: 03/10/19 09:15 Dose: 100 mls/hr Ibuprofen (Motrin -) 600 mg PO Q6H PRN PRN Reason: PAIN LEVEL 1-5 Levetiracetam (Keppra Injection -) 500 mg IVPB BID [facility] Last Admin: 03/10/19 10:16 Dose: 500 mg Lorazepam (Ativan -) 1 mg PO Q12H PRN PRN Reason: ANXIETY Last Admin: 03/09/19 10:33 Dose: 1 mg Morphine Sulfate (Morphine Sulfate) 4 mg IVPUSH Q4H PRN PRN Reason: PAIN LEVEL 7 - 10 Last Admin: 03/10/19 10:17 Dose: 4 mg Ondansetron HCl (Zofran Injection) 4 mg IVPUSH Q6H [facility] Last Admin: 03/10/19 10:26 Dose: 4 mg Oxycodone HCl (Roxicodone -) 5 mg PO Q4H PRN PRN Reason: PAIN LEVEL 1-5 Last Admin: 03/05/19 20:43 Dose: 5 mg Pantoprazole Sodium (Protonix Iv) 40 mg IVPUSH DAILY [facility] Last Admin: 03/10/19 09:16 Dose: 40 mg Laboratory Results - last 24 hr 03/10/19 03/10/19 06:45 06:45 WBC 14.8 H RBC 4.24 Hgb 12.8 Hct 37.2 MCV 87.7 MCH 30.1 MCHC 34.4 RDW 13.1 Plt Count 300 MPV 7.2 L Absolute Neuts (auto) 11.2 H Neutrophils % 76.2 Lymphocytes % 7.7 L Monocytes % 12.5 H Eosinophils % 2.9 Basophils % 0.7 Nucleated RBC % 0 Sodium 141 Potassium 3.8 Chloride 107 Carbon Dioxide 26 Anion Gap 9 BUN 6.6 L Creatinine 0.7 Est GFR (CKD-EPI)AfAm 118.88 Est GFR (CKD-EPI)NonAf 102.57 Random Glucose 87 Calcium 8.2 L Vital Signs Temperature 99.5 F 03/10/19 05:41 Pulse Rate 72 03/10/19 05:41 Respiratory Rate 20 03/10/19 05:41 Blood Pressure 120/74 03/10/19 05:41 O2 Sat by Pulse Oximetry (%) 95 03/09/19 21:00 CC: feels "bloated"...had BM last night, none today. ``````````````````````````````````` skin--NL color eyes--anicteric heart--RR abd--distended; BS present; RLQ tenderness neuro--alert; coherent; moves all E's ```````````````````````````````````````` Summ > abd distention--post-op; still distended BS present. Diet changed to liquids > Leukocytosis--trending up (noted by Surgeon); cont Abs; follow trend > s/p AP--for perf appendicitis; with fluct low grade temps; non toxic appearing ; CT suggests some intestinal content spillage into peritoneum. PLAN: Cont Abs; may need f/u study to check for resolution. > seizure dz--has been placed on Keppra by Neuro > Low potassium--corrected ``````````````````````````````````````````` Dr Hoang
--- NOTE | 2019-03-10 15:53 | PN ---
Progress Note, Physician History of Present Illness: Pt is alert without distress. C/O abd pain, no recent vomiting. Still with fever , 100.5F today. No other complaints. - Current Medication List Current Medications: Active Medications Acetaminophen (Tylenol -) 650 mg PO Q6H PRN PRN Reason: PAIN LEVEL 1-5 Last Admin: 03/10/19 01:06 Dose: 650 mg Albuterol/Ipratropium (Duoneb -) 1 amp NEB RQID [facility] Last Admin: 03/10/19 11:36 Dose: 1 amp Benzocaine/Menthol (Cepacol Lozenge -) 1 each MM Q4H PRN PRN Reason: SORE THROAT Last Admin: 03/07/19 20:47 Dose: 1 each Diphenhydramine HCl (Benadryl Injection -) 50 mg IVPUSH ONCE PRN PRN Reason: INSOMNIA Last Admin: 03/07/19 23:15 Dose: 50 mg Diphenhydramine HCl (Benadryl Injection -) 50 mg IVPUSH HS PRN PRN Reason: INSOMNIA Last Admin: 03/10/19 00:54 Dose: 50 mg Fentanyl (Sublimaze Injection -) 50 mcg IVPUSH [id number] PRN PRN Reason: PAIN-PACU ORDER X 4 DOSES ONLY Last Admin: 03/05/19 11:55 Dose: 50 mcg Heparin Sodium (Porcine) (Heparin -) 5,000 unit SQ TID [facility] Last Admin: 03/10/19 14:02 Dose: 5,000 unit Piperacillin Sod/Tazobactam (Sod 3.375 gm/ Dextrose) 50 mls @ 100 mls/hr IVPB Q8H-IV [facility]; Protocol Last Admin: 03/10/19 09:15 Dose: 100 mls/hr Potassium Chloride/Dextrose/Sod Cl (D5-1/2ns+20 Meq Kcl -) 20 meq in 1,000 mls @ 125 mls/hr IV ASDIR [facility] Ibuprofen (Motrin -) 600 mg PO Q6H PRN PRN Reason: PAIN LEVEL 1-5 Levetiracetam (Keppra Injection -) 500 mg IVPB BID [facility] Last Admin: 03/10/19 10:16 Dose: 500 mg Lorazepam (Ativan -) 1 mg PO Q12H PRN PRN Reason: ANXIETY Last Admin: 03/09/19 10:33 Dose: 1 mg Morphine Sulfate (Morphine Sulfate) 4 mg IVPUSH Q4H PRN PRN Reason: PAIN LEVEL 7 - 10 Last Admin: 03/10/19 14:19 Dose: 4 mg Ondansetron HCl (Zofran Injection) 4 mg IVPUSH Q6H [facility] Last Admin: 03/10/19 10:26 Dose: 4 mg Oxycodone HCl (Roxicodone -) 5 mg PO Q4H PRN PRN Reason: PAIN LEVEL 1-5 Last Admin: 03/05/19 20:43 Dose: 5 mg Pantoprazole Sodium (Protonix Iv) 40 mg IVPUSH DAILY [facility] Last Admin: 03/10/19 09:16 Dose: 40 mg - Objective Vital Signs: Vital Signs Temperature 100.5 F H 03/10/19 14:28 Pulse Rate 82 03/10/19 14:28 Respiratory Rate 20 03/10/19 14:28 Blood Pressure 132/81 03/10/19 14:28 O2 Sat by Pulse Oximetry (%) 92 L 03/10/19 09:00 Constitutional: Yes: No Distress, Calm Cardiovascular: Yes: Regular Rate and Rhythm Respiratory: Yes: Regular Gastrointestinal: Yes: Soft, Tenderness (lower abd mosly RLQ) Genitourinary: Yes: WNL Extremities: Yes: WNL Edema: No Wound/Incision: Yes: Dressing Dry and Intact Neurological: Yes: Alert Labs: CBC, BMP 03/10/19 06:45 03/10/19 06:45 Microbiology 03/06/19 20:00 Blood - Peripheral Venous Blood Culture - Preliminary NO GROWTH OBTAINED AFTER 72 HOURS, INCUBATION TO CONTINUE FOR 2 DAYS. 03/06/19 18:00 Blood - Peripheral Venous Blood Culture - Preliminary NO GROWTH OBTAINED AFTER 72 HOURS, INCUBATION TO CONTINUE FOR 2 DAYS. 03/06/19 19:20 Urine - Urine Clean Catch Urine Culture - Final NO GROWTH OBTAINED - ....Imaging X-ray: Pending Problem List - Problems (1) Leukocytosis Code(s): D72.829 - ELEVATED WHITE BLOOD CELL COUNT, UNSPECIFIED Qualifiers: Leukocytosis type: bandemia Qualified Code(s): D72.825 - Bandemia (2) Perforated appendix Code(s): K35.32 - ACUTE APPENDICITIS WITH PERF AND LOC PERITONITIS, W/O ABSCS (3) Vomiting Code(s): R11.10 - VOMITING, UNSPECIFIED Assessment/Plan Appendicitis with rupture s/p appendectomy r/o intra-abdominal abscess Fecal peritonitis Persistent Fever Leukocytosis -- pt still with fever, wbc trending up -- continue broad spectrum antibiotics -- CT A/P -- surgery following -- repeat cbc monitor temps/vitals
[2019-03-10] MEDS: IBUPROFEN 600 MG TABLET (FP) PO PRN (17:01)
[2019-03-10] MEDS ORDERED: DEXTROSE 5%-WATER 100 ML IVPB ONE (20:45)
[2019-03-10] MEDS ORDERED: PIPERACILLIN/TAZOBACTAM 4.5 GM VIAL IVPB ONE (20:45)
[2019-03-10] MEDS: PIPERACILLIN/TAZOB 4.5 GM 4.5 GM in DEXTROSE 5%-WATER 100 ML IVPB SCH (21:34)
[2019-03-10] MEDS: D5-1/2NS+20 MEQ KCL - 20 MEQ/1,000 ML INFUS.BAG IV SCH (23:50)
[2019-03-11] MEDS ORDERED: DEXTROSE 5%-WATER 100 ML IVPB ONE ×4 (01:59→20:56)
[2019-03-11] MEDS ORDERED: PIPERACILLIN/TAZOBACTAM 4.5 GM VIAL IVPB ONE ×4 (01:59→20:56)
[2019-03-11] MEDS: PIPERACILLIN/TAZOB 4.5 GM 4.5 GM in DEXTROSE 5%-WATER 100 ML IVPB SCH ×4 (02:22→23:23)
[2019-03-11] MEDS: ONDANSETRON 4 MG/2 ML VIAL IVPUSH SCH ×4 (04:28→23:23)
[2019-03-11] MEDS: HEPARIN NA (PORCINE) 5,000 UNITS/ML 1ML VIAL SQ SCH ×3 (06:02→21:36)
[2019-03-11] MEDS: ALBUTEROL SO4 2.5/IPRATROPIUM 0.5 INH SOL 3 ML VIAL.NEB. NEB SCH ×4 (07:15→19:50)
[2019-03-11 07:36] LABS: BASO % 1.5 % (0-2.0); EOS % 3.7 % (0-4.5); HEMATOCRIT 38.9 % (35.4-49); HEMOGLOBIN 13.1 GM/dL (11.7-16.9); LYMPH % 8.7 % (8-40); MCH 29.6 pg (25.7-33.7); MCHC 33.6 g/dl (32.0-35.9); MEAN PLT VOLUME 6.9 fl (7.5-11.1); MONO % 9.1 % (3.8-10.2); PLATELET COUNT 393 K/MM3 (134-434); RBC 4.43 M/mm3 (4.00-5.60); RDW 13.9 % (11.9-15.9); WHITE BLOOD COUNT 14.3 K/mm3 (4.0-10.0)
[2019-03-11] MEDS: ACETAMINOPHEN 325 MG TABLET (FP) PO PRN ×2 (07:56→14:43)
[2019-03-11 08:27] LABS: ALBUMIN 2.8 g/dl (3.4-5.0); BILIRUBIN,TOTAL 0.7 mg/dL (0.2-1); BLOOD UREA NITROGEN 8.6 mg/dL (7-18); CALCIUM 8.3 mg/dL (8.5-10.1); CREATININE 0.9 mg/dL (0.55-1.3); POTASSIUM 4.1 mmol/L (3.5-5.1); TOT PROT 6.5 g/dl (6.4-8.2)
[2019-03-11] MEDS: PANTOPRAZOLE SODIUM 40 MG VIAL IVPUSH SCH (09:47)
[2019-03-11] MEDS: morphine SULFATE 4 MG/ML VIAL IVPUSH PRN ×2 (09:57→14:44)
[2019-03-11] MEDS: levETIRAcetam 500 MG/5 ML INJECTION VIAL IVPB SCH ×2 (10:46→21:35)
[2019-03-11] MEDS: IBUPROFEN 600 MG TABLET (FP) PO PRN (13:06)
--- NOTE | 2019-03-11 13:16 | PN ---
Progress Note, Physician History of Present Illness: continues to have off and on fevers ct abd shows a collection patient going for drainage of abscess wbc still on the higher side - Current Medication List Current Medications: Active Medications Acetaminophen (Tylenol -) 650 mg PO Q6H PRN PRN Reason: PAIN LEVEL 1-5 Last Admin: 03/11/19 07:56 Dose: 650 mg Albuterol/Ipratropium (Duoneb -) 1 amp NEB RQID [facility] Last Admin: 03/11/19 07:15 Dose: 1 amp Benzocaine/Menthol (Cepacol Lozenge -) 1 each MM Q4H PRN PRN Reason: SORE THROAT Last Admin: 03/07/19 20:47 Dose: 1 each Diphenhydramine HCl (Benadryl Injection -) 50 mg IVPUSH ONCE PRN PRN Reason: INSOMNIA Last Admin: 03/10/19 23:43 Dose: 50 mg Diphenhydramine HCl (Benadryl Injection -) 50 mg IVPUSH HS PRN PRN Reason: INSOMNIA Last Admin: 03/10/19 00:54 Dose: 50 mg Heparin Sodium (Porcine) (Heparin -) 5,000 unit SQ TID [facility] Last Admin: 03/11/19 06:02 Dose: 5,000 unit Potassium Chloride/Dextrose/Sod Cl (D5-1/2ns+20 Meq Kcl -) 20 meq in 1,000 mls @ 125 mls/hr IV [facility]IR [facility] Last Admin: 03/10/19 23:50 Dose: 125 mls/hr Piperacillin Sod/Tazobactam (Sod 4.5 gm/ Dextrose) 100 mls @ 200 mls/hr IVPB Q6H-IV [facility]; Protocol Last Admin: 03/11/19 09:48 Dose: 200 mls/hr Ibuprofen (Motrin -) 600 mg PO Q6H PRN PRN Reason: PAIN LEVEL 1-5 Last Admin: 03/11/19 13:06 Dose: 600 mg Levetiracetam (Keppra Injection -) 500 mg IVPB BID [facility] Last Admin: 03/11/19 10:46 Dose: 500 mg Lorazepam (Ativan -) 1 mg PO Q12H PRN PRN Reason: ANXIETY Last Admin: 03/09/19 10:33 Dose: 1 mg Morphine Sulfate (Morphine Sulfate) 4 mg IVPUSH Q4H PRN PRN Reason: PAIN LEVEL 7 - 10 Last Admin: 03/11/19 09:57 Dose: 4 mg Ondansetron HCl (Zofran Injection) 4 mg IVPUSH Q6H [facility] Last Admin: 03/11/19 09:46 Dose: 4 mg Oxycodone HCl (Roxicodone -) 5 mg PO Q4H PRN PRN Reason: PAIN LEVEL 1-5 Last Admin: 03/05/19 20:43 Dose: 5 mg Pantoprazole Sodium (Protonix Iv) 40 mg IVPUSH DAILY [facility] Last Admin: 03/11/19 09:47 Dose: 40 mg - Objective Vital Signs: Vital Signs Temperature 99.3 F 03/11/19 06:37 Pulse Rate 73 03/11/19 06:37 Respiratory Rate 20 03/11/19 06:37 Blood Pressure 141/76 03/11/19 06:37 O2 Sat by Pulse Oximetry (%) 93 L 03/10/19 21:00 Constitutional: Yes: No Distress, Calm, Obese Cardiovascular: Yes: Regular Rate and Rhythm Respiratory: Yes: Regular, CTA Bilaterally Gastrointestinal: Yes: Normal Bowel Sounds, Soft Musculoskeletal: Yes: WNL Extremities: Yes: WNL Neurological: Yes: Alert, Oriented Labs: CBC, BMP 03/11/19 06:32 03/11/19 06:32 - ....Imaging Cat Scan: Report Reviewed, Image Reviewed Assessment/Plan Problem List - Problems (1) Perforated appendix Code(s): K35.32 - ACUTE APPENDICITIS WITH PERF AND LOC PERITONITIS, W/O ABSCS (2) Leukocytosis Code(s): D72.829 - ELEVATED WHITE BLOOD CELL COUNT, UNSPECIFIED Qualifiers: Leukocytosis type: bandemia Qualified Code(s): D72.825 - Bandemia (3) Abdominal pain in male Code(s): R10.9 - UNSPECIFIED ABDOMINAL PAIN (4) RLQ abdominal tenderness Code(s): R10.813 - RIGHT LOWER QUADRANT ABDOMINAL TENDERNESS Qualifiers: Presence of rebound: present Qualified Code(s): R10.823 - Right lower quadrant rebound abdominal tenderness wbc trending down plan continue abx drain of abscess monitor fevers rest as per the team
--- NOTE | 2019-03-11 18:08 | PN ---
Progress Note (short form) - Note Progress Note: patient sitting in bed having full dinner s/p IR drainage earlier today brown purulent drainage in MERLINE afebrile at this time Vital Signs Period Temp Pulse Resp BP Sys/Cerna Pulse Ox Last 24 Hr 98.9 F-102.0 F 73-85 20-25 107-141/68-83 93-95 neck - jvd heart S1/S2 2/6SEM regular lungs clear bilat abd soft / appropriate tenderness RLQ drain to RLQ MERLINE with small amount of drainage ext no edema / no calf tenderness CBC, BMP 03/11/19 06:32 03/11/19 06:32 Microbiology 03/06/19 20:00 Blood - Peripheral Venous Blood Culture - Preliminary NO GROWTH OBTAINED AFTER 96 HOURS, INCUBATION TO CONTINUE FOR 1 DAYS. 03/06/19 18:00 Blood - Peripheral Venous Blood Culture - Preliminary NO GROWTH OBTAINED AFTER 96 HOURS, INCUBATION TO CONTINUE FOR 1 DAYS. 03/06/19 19:20 Urine - Urine Clean Catch Urine Culture - Final NO GROWTH OBTAINED Active Medications Acetaminophen (Tylenol -) 650 mg PO Q6H PRN PRN Reason: PAIN LEVEL 1-5 Last Admin: 03/11/19 14:43 Dose: 650 mg Albuterol/Ipratropium (Duoneb -) 1 amp NEB RQID [facility] Last Admin: 03/11/19 16:00 Dose: 1 amp Benzocaine/Menthol (Cepacol Lozenge -) 1 each MM Q4H PRN PRN Reason: SORE THROAT Last Admin: 03/07/19 20:47 Dose: 1 each Diphenhydramine HCl (Benadryl Injection -) 50 mg IVPUSH ONCE PRN PRN Reason: INSOMNIA Last Admin: 03/10/19 23:43 Dose: 50 mg Diphenhydramine HCl (Benadryl Injection -) 50 mg IVPUSH HS PRN PRN Reason: INSOMNIA Last Admin: 03/10/19 00:54 Dose: 50 mg Heparin Sodium (Porcine) (Heparin -) 5,000 unit SQ TID [facility] Last Admin: 03/11/19 13:15 Dose: Not Given Potassium Chloride/Dextrose/Sod Cl (D5-1/2ns+20 Meq Kcl -) 20 meq in 1,000 mls @ 125 mls/hr IV [facility] Last Admin: 03/10/19 23:50 Dose: 125 mls/hr Piperacillin Sod/Tazobactam (Sod 4.5 gm/ Dextrose) 100 mls @ 200 mls/hr IVPB Q6H-IV [facility]; Protocol Last Admin: 03/11/19 14:47 Dose: 200 mls/hr Ibuprofen (Motrin -) 600 mg PO Q6H PRN PRN Reason: PAIN LEVEL 1-5 Last Admin: 03/11/19 13:06 Dose: 600 mg Levetiracetam (Keppra Injection -) 500 mg IVPB BID [facility] Last Admin: 03/11/19 10:46 Dose: 500 mg Lorazepam (Ativan -) 1 mg PO Q12H PRN PRN Reason: ANXIETY Last Admin: 03/09/19 10:33 Dose: 1 mg Morphine Sulfate (Morphine Sulfate) 4 mg IVPUSH Q4H PRN PRN Reason: PAIN LEVEL 7 - 10 Last Admin: 03/11/19 14:44 Dose: 4 mg Ondansetron HCl (Zofran Injection) 4 mg IVPUSH Q6H [facility] Last Admin: 03/11/19 16:29 Dose: Not Given Oxycodone HCl (Roxicodone -) 5 mg PO Q4H PRN PRN Reason: PAIN LEVEL 1-5 Last Admin: 03/05/19 20:43 Dose: 5 mg Pantoprazole Sodium (Protonix Iv) 40 mg IVPUSH DAILY [facility] Last Admin: 03/11/19 09:47 Dose: 40 mg # Perforated Waldo / s/p lap appendectomy febrile post op CT of abd c/w small collection s/p IR drainage earlier today - patient reports feeling much better s/p procedure tolerating diet well ambulate as tolerated continue nebulizer treatments ABX per ID # Seizure disorder - petitie mal Per neurology # OA difficult ambulation due to OA
[2019-03-12] MEDS ORDERED: PIPERACILLIN/TAZOBACTAM 4.5 GM VIAL IVPB ONE ×4 (01:32→20:26)
[2019-03-12] MEDS ORDERED: DEXTROSE 5%-WATER 100 ML IVPB ONE ×4 (01:33→20:26)
[2019-03-12] MEDS: PIPERACILLIN/TAZOB 4.5 GM 4.5 GM in DEXTROSE 5%-WATER 100 ML IVPB SCH ×4 (02:05→23:21)
[2019-03-12] MEDS: D5-1/2NS+20 MEQ KCL - 20 MEQ/1,000 ML INFUS.BAG IV SCH (03:33)
[2019-03-12] MEDS: ONDANSETRON 4 MG/2 ML VIAL IVPUSH SCH ×4 (05:45→23:20)
[2019-03-12] MEDS: HEPARIN NA (PORCINE) 5,000 UNITS/ML 1ML VIAL SQ SCH ×3 (05:46→21:24)
[2019-03-12 07:43] LABS: BASO % 0.9 % (0-2.0); EOS % 3.2 % (0-4.5); HEMATOCRIT 34.4 % (35.4-49); HEMOGLOBIN 11.7 GM/dL (11.7-16.9); LYMPH % 8.9 % (8-40); MCH 29.6 pg (25.7-33.7); MCHC 33.9 g/dl (32.0-35.9); MEAN CELL VOLUME 87.4 fl (80-96); MEAN PLT VOLUME 7.1 fl (7.5-11.1); MONO % 8.7 % (3.8-10.2); NEUT % 78.3 % (42.8-82.8); PLATELET COUNT 386 K/MM3 (134-434); RBC 3.94 M/mm3 (4.00-5.60); RDW 13.3 % (11.9-15.9); WHITE BLOOD COUNT 12.2 K/mm3 (4.0-10.0)
[2019-03-12] MEDS: ALBUTEROL SO4 2.5/IPRATROPIUM 0.5 INH SOL 3 ML VIAL.NEB. NEB SCH ×2 (07:44→11:18)
[2019-03-12 07:46] LABS: BLOOD UREA NITROGEN 9.2 mg/dL (7-18); CREATININE 0.8 mg/dL (0.55-1.3); MAGNESIUM 2.4 mg/dL (1.8-2.4); POTASSIUM 4.1 mmol/L (3.5-5.1)
[2019-03-12] MEDS: PANTOPRAZOLE SODIUM 40 MG VIAL IVPUSH SCH (09:30)
[2019-03-12] MEDS: levETIRAcetam 500 MG/5 ML INJECTION VIAL IVPB SCH ×2 (09:30→21:23)
[2019-03-12] MEDS: ACETAMINOPHEN 325 MG TABLET (FP) PO PRN (09:33)
--- NOTE | 2019-03-12 12:08 | PN ---
Progress Note, Physician History of Present Illness: patient spiked fever ir drainage done of the abd abscess feels much better tolerating diet - Current Medication List Current Medications: Active Medications Acetaminophen (Tylenol -) 650 mg PO Q6H PRN PRN Reason: PAIN LEVEL 1-5 Last Admin: 03/12/19 09:33 Dose: 650 mg Albuterol/Ipratropium (Duoneb -) 1 amp NEB RQID [facility] Last Admin: 03/12/19 11:18 Dose: 1 amp Benzocaine/Menthol (Cepacol Lozenge -) 1 each MM Q4H PRN PRN Reason: SORE THROAT Last Admin: 03/07/19 20:47 Dose: 1 each Diphenhydramine HCl (Benadryl Injection -) 50 mg IVPUSH ONCE PRN PRN Reason: INSOMNIA Last Admin: 03/12/19 03:33 Dose: 50 mg Diphenhydramine HCl (Benadryl Injection -) 50 mg IVPUSH HS PRN PRN Reason: INSOMNIA Last Admin: 03/11/19 21:36 Dose: 50 mg Heparin Sodium (Porcine) (Heparin -) 5,000 unit SQ TID [facility] Last Admin: 03/12/19 05:46 Dose: 5,000 unit Potassium Chloride/Dextrose/Sod Cl (D5-1/2ns+20 Meq Kcl -) 20 meq in 1,000 mls @ 125 mls/hr IV [facility] Last Admin: 03/12/19 03:33 Dose: 125 mls/hr Piperacillin Sod/Tazobactam (Sod 4.5 gm/ Dextrose) 100 mls @ 200 mls/hr IVPB Q6H-IV [facility]; Protocol Last Admin: 03/12/19 09:30 Dose: 200 mls/hr Ibuprofen (Motrin -) 600 mg PO Q6H PRN PRN Reason: PAIN LEVEL 1-5 Last Admin: 03/11/19 13:06 Dose: 600 mg Levetiracetam (Keppra Injection -) 500 mg IVPB BID [facility] Last Admin: 03/12/19 09:30 Dose: 500 mg Lorazepam (Ativan -) 1 mg PO Q12H PRN PRN Reason: ANXIETY Last Admin: 03/09/19 10:33 Dose: 1 mg Morphine Sulfate (Morphine Sulfate) 4 mg IVPUSH Q4H PRN PRN Reason: PAIN LEVEL 7 - 10 Last Admin: 03/11/19 14:44 Dose: 4 mg Ondansetron HCl (Zofran Injection) 4 mg IVPUSH Q6H [facility] Last Admin: 03/12/19 05:45 Dose: Not Given Oxycodone HCl (Roxicodone -) 5 mg PO Q4H PRN PRN Reason: PAIN LEVEL 1-5 Last Admin: 03/05/19 20:43 Dose: 5 mg Pantoprazole Sodium (Protonix Iv) 40 mg IVPUSH DAILY [facility] Last Admin: 03/12/19 09:30 Dose: 40 mg - Objective Vital Signs: Vital Signs Temperature 101.2 F H 03/12/19 08:53 Pulse Rate 72 03/12/19 08:53 Respiratory Rate 19 03/12/19 08:53 Blood Pressure 132/74 03/12/19 08:53 O2 Sat by Pulse Oximetry (%) 95 03/12/19 08:53 Constitutional: Yes: No Distress, Calm Cardiovascular: Yes: Regular Rate and Rhythm Respiratory: Yes: Regular, CTA Bilaterally Gastrointestinal: Yes: Normal Bowel Sounds, Soft, Other (drain in place--jacob pus) Musculoskeletal: Yes: WNL Extremities: Yes: WNL Wound/Incision: Yes: Clean/Dry Neurological: Yes: Alert, Oriented Labs: CBC, BMP 03/12/19 06:12 03/12/19 06:12 Assessment/Plan Problem List - Problems (1) Perforated appendix Code(s): K35.32 - ACUTE APPENDICITIS WITH PERF AND LOC PERITONITIS, W/O ABSCS (2) Leukocytosis Code(s): D72.829 - ELEVATED WHITE BLOOD CELL COUNT, UNSPECIFIED Qualifiers: Leukocytosis type: bandemia Qualified Code(s): D72.825 - Bandemia (3) Abdominal pain in male Code(s): R10.9 - UNSPECIFIED ABDOMINAL PAIN (4) RLQ abdominal tenderness Code(s): R10.813 - RIGHT LOWER QUADRANT ABDOMINAL TENDERNESS Qualifiers: Presence of rebound: present Qualified Code(s): R10.823 - Right lower quadrant rebound abdominal tenderness wbc trending down plan continue abx monitor fevers and wbc rest as per the team
--- NOTE | 2019-03-12 14:45 | PN ---
Progress Note, Physician History of Present Illness: Covering for Dr. Cabrera: Pt is one week s/p laparoscopic appendectomy for ruptured appendicitis with gross fecal contamination, with primary umbilical hernia repair. He had IR drain placed yesterday for postop pelvic abscess, with purulent drainage in bulb. Just emptied for 20ml. Culture growing LFGNB + one other organism. On abx per ID, fever curve trending down. 98.9 just now. Feeling better progressively. Had BM finally. Seen and examined in bed with family present, including . WBC down a little today to 12.2. Tolerating regular diet. No N/V. - Current Medication List Current Medications: Active Medications Acetaminophen (Tylenol -) 650 mg PO Q6H PRN PRN Reason: PAIN LEVEL 1-5 Last Admin: 03/12/19 09:33 Dose: 650 mg Albuterol/Ipratropium (Duoneb -) 1 amp NEB RQID [facility] Last Admin: 03/12/19 11:18 Dose: 1 amp Benzocaine/Menthol (Cepacol Lozenge -) 1 each MM Q4H PRN PRN Reason: SORE THROAT Last Admin: 03/07/19 20:47 Dose: 1 each Diphenhydramine HCl (Benadryl Injection -) 50 mg IVPUSH ONCE PRN PRN Reason: INSOMNIA Last Admin: 03/12/19 03:33 Dose: 50 mg Diphenhydramine HCl (Benadryl Injection -) 50 mg IVPUSH HS PRN PRN Reason: INSOMNIA Last Admin: 03/11/19 21:36 Dose: 50 mg Heparin Sodium (Porcine) (Heparin -) 5,000 unit SQ TID [facility] Last Admin: 03/12/19 05:46 Dose: 5,000 unit Potassium Chloride/Dextrose/Sod Cl (D5-1/2ns+20 Meq Kcl -) 20 meq in 1,000 mls @ 125 mls/hr IV [facility] Last Admin: 03/12/19 03:33 Dose: 125 mls/hr Piperacillin Sod/Tazobactam (Sod 4.5 gm/ Dextrose) 100 mls @ 200 mls/hr IVPB Q6H-IV [facility]; Protocol Last Admin: 03/12/19 09:30 Dose: 200 mls/hr Ibuprofen (Motrin -) 600 mg PO Q6H PRN PRN Reason: PAIN LEVEL 1-5 Last Admin: 03/11/19 13:06 Dose: 600 mg Levetiracetam (Keppra Injection -) 500 mg IVPB BID [facility] Last Admin: 03/12/19 09:30 Dose: 500 mg Lorazepam (Ativan -) 1 mg PO Q12H PRN PRN Reason: ANXIETY Last Admin: 03/09/19 10:33 Dose: 1 mg Morphine Sulfate (Morphine Sulfate) 4 mg IVPUSH Q4H PRN PRN Reason: PAIN LEVEL 7 - 10 Last Admin: 03/11/19 14:44 Dose: 4 mg Ondansetron HCl (Zofran Injection) 4 mg IVPUSH Q6H [facility] Last Admin: 03/12/19 12:39 Dose: 4 mg Oxycodone HCl (Roxicodone -) 5 mg PO Q4H PRN PRN Reason: PAIN LEVEL 1-5 Last Admin: 03/05/19 20:43 Dose: 5 mg Pantoprazole Sodium (Protonix Iv) 40 mg IVPUSH DAILY [facility] Last Admin: 03/12/19 09:30 Dose: 40 mg - Objective Vital Signs: Vital Signs Temperature 101.2 F H 03/12/19 08:53 Pulse Rate 72 03/12/19 08:53 Respiratory Rate 19 03/12/19 08:53 Blood Pressure 132/74 03/12/19 08:53 O2 Sat by Pulse Oximetry (%) 95 03/12/19 08:53 temp during exam 98.9 Constitutional: Yes: No Distress, Calm, Obese Eyes: Yes: Conjunctiva Clear, EOM Intact HENT: Yes: Atraumatic, Normocephalic Cardiovascular: Yes: Regular Rate and Rhythm Respiratory: Yes: Regular, CTA Bilaterally Gastrointestinal: Yes: Normal Bowel Sounds, Soft, Abdomen, Obese, Tenderness ( RLQ, less suprapubic, periumbilical), Other (incisions healing ok - LLQ and suprapubic with dermabond, c/d/i; umbilical with slight moisture coming through dermabond - glue removed, incision well-approximated, no additional drainage expressible, no erythema - left small folded gauze and tape over site). No: Tenderness, Rebound Extremities: No: Cool, Cyanosis Integumentary: Yes: Incision (x3 - see above). No: Jaundice, Rash Wound/Incision: Yes: Clean/Dry (see above), Well Approximated. No: Reddened Neurological: Yes: Alert, Oriented Labs: CBC, BMP 03/12/19 06:12 03/12/19 06:12 Problem List - Problems (1) Infection following a procedure, organ and space surgical site, initial encounter Assessment/Plan: s/p IR perc drain yesterday for pelvic/RLQ abscess pus in drain bulb culture with LFGNB + other organism f/u results clinically starting to improve fevers decreasing wbc trending down continue antibiotics per ID add bacid, to continue probiotic daily on d/c while on abx Code(s): T81.43XA - INFCT FOL A PROCEDURE, ORGAN AND SPACE SURGICAL SITE, INIT (2) Perforated appendix Assessment/Plan: POD7 s/p lap appy with primary umbilical hernia repair for perforated appendix with gross fecal contamination postop RLQ/pelvic collection, infected now s/p IR drain tolerating diet - stop IV fluids bowel function resuming pt feeling progressively better pain management with nonnarcotics first line incisions healing ok umbilical site with scant serosanguinous fluid through dermabond - glue removed , gauze left will check on it tomorrow will need to have normal wbc, afebrile at least 24 hrs, nikos diet, ambulatory and po pain meds for d/c home cont abx per ID will likely go home with drain in place to complete abx course spoke with CM regarding possibly arranging VNS after d/c home Code(s): K35.32 - ACUTE APPENDICITIS WITH PERF AND LOC PERITONITIS, W/O ABSCS (3) Umbilical hernia without mention of obstruction or gangrene Assessment/Plan: repaired at time of OR Code(s): K42.9 - UMBILICAL HERNIA WITHOUT OBSTRUCTION OR GANGRENE Qualifiers: Obstruction and gangrene presence: without obstruction or gangrene Qualified Code(s): K42.9 - Umbilical hernia without obstruction or gangrene (4) Leukocytosis Assessment/Plan: trending down Code(s): D72.829 - ELEVATED WHITE BLOOD CELL COUNT, UNSPECIFIED Qualifiers: Leukocytosis type: bandemia Qualified Code(s): D72.825 - Bandemia (5) Fever presenting with conditions classified elsewhere Assessment/Plan: coming down Code(s): R50.81 - FEVER PRESENTING WITH CONDITIONS CLASSIFIED ELSEWHERE
[2019-03-12] MEDS: LACTOBACILLUS ACIDOPHILUS 1 TABLET PO SCH (16:24)
[2019-03-12] MEDS: oxyCODONE HCL 5 MG TABLET PO PRN ×2 (16:24→21:22)
[2019-03-13] MEDS ORDERED: DEXTROSE 5%-WATER 100 ML IVPB ONE ×4 (01:50→21:40)
[2019-03-13] MEDS ORDERED: PIPERACILLIN/TAZOBACTAM 4.5 GM VIAL IVPB ONE ×4 (01:50→21:40)
[2019-03-13] MEDS: PIPERACILLIN/TAZOB 4.5 GM 4.5 GM in DEXTROSE 5%-WATER 100 ML IVPB SCH ×4 (02:33→21:45)
[2019-03-13] MEDS: ONDANSETRON 4 MG/2 ML VIAL IVPUSH SCH ×4 (05:32→22:35)
[2019-03-13] MEDS: oxyCODONE HCL 5 MG TABLET PO PRN (05:34)
[2019-03-13] MEDS: HEPARIN NA (PORCINE) 5,000 UNITS/ML 1ML VIAL SQ SCH ×3 (05:34→21:45)
[2019-03-13] MEDS: ALBUTEROL SO4 2.5/IPRATROPIUM 0.5 INH SOL 3 ML VIAL.NEB. NEB SCH ×4 (08:00→20:56)
[2019-03-13 08:08] LABS: BLOOD UREA NITROGEN 8.2 mg/dL (7-18); CALCIUM 8.4 mg/dL (8.5-10.1); CREATININE 0.8 mg/dL (0.55-1.3); POTASSIUM 4.2 mmol/L (3.5-5.1)
[2019-03-13 08:16] LABS: BASO % 0.8 % (0-2.0); EOS % 3.2 % (0-4.5); HEMOGLOBIN 12.6 GM/dL (11.7-16.9); LYMPH % 10.5 % (8-40); MCH 29.9 pg (25.7-33.7); MEAN CELL VOLUME 87.9 fl (80-96); MEAN PLT VOLUME 6.8 fl (7.5-11.1); MONO % 7.2 % (3.8-10.2); NEUT % 78.3 % (42.8-82.8); PLATELET COUNT 472 K/MM3 (134-434); RBC 4.21 M/mm3 (4.00-5.60); RDW 13.4 % (11.9-15.9); WHITE BLOOD COUNT 13.5 K/mm3 (4.0-10.0)
[2019-03-13] MEDS: PANTOPRAZOLE SODIUM 40 MG VIAL IVPUSH SCH (09:39)
[2019-03-13] MEDS: LACTOBACILLUS ACIDOPHILUS 1 TABLET PO SCH (09:41)
[2019-03-13] MEDS: levETIRAcetam 500 MG/5 ML INJECTION VIAL IVPB SCH ×2 (11:10→21:45)
--- NOTE | 2019-03-13 12:15 | PN ---
Progress Note (short form) - Note Progress Note: patient sitting in bed having full dinner s/p IR drainage in place continues with brown purulent drainage in MERLINE Vital Signs Period Temp Pulse Resp BP Sys/Cerna Pulse Ox Last 24 Hr 98.9 F-102.0 F 73-85 20-25 107-141/68-83 93-95 neck - jvd heart S1/S2 2/6SEM regular lungs clear bilat abd soft / appropriate tenderness RLQ drain to RLQ MERLINE with small amount of drainage ext no edema / no calf tenderness CBC, BMP 03/11/19 06:32 03/11/19 06:32 Microbiology 03/11/19 14:24 Abscess Gram Stain - Final 03/11/19 14:24 Abscess Body Fluid Culture - Preliminary Escherichia Coli Group D Strep Or Entero Coccus 03/06/19 20:00 Blood - Peripheral Venous Blood Culture - Final NO GROWTH AFTER 5 DAYS INCUBATION 03/06/19 18:00 Blood - Peripheral Venous Blood Culture - Final NO GROWTH AFTER 5 DAYS INCUBATION 03/06/19 19:20 Urine - Urine Clean Catch Urine Culture - Final NO GROWTH OBTAINED # Perforated Waldo / s/p lap appendectomy febrile post op CT of abd c/w small collection - s/p IR drainage patient reports feeling much better s/p procedure tolerating diet well ambulate as tolerated continue nebulizer treatments ABX per ID # Seizure disorder - petitie mal Per neurology # OA difficult ambulation due to OA
--- NOTE | 2019-03-13 12:18 | PN ---
Progress Note (short form) - Note Progress Note: patient sitting in bed in bed at bedside s/p IR drainage -- in place continues with brown purulent drainage in MERLINE Vital Signs Period Temp Pulse Resp BP Sys/Cerna Pulse Ox Last 24 Hr 98.6 F-100.4 F 65-79 18-18 102-135/64-71 95 afebrile today neck - jvd heart S1/S2 2/6SEM regular lungs clear bilat abd soft / appropriate tenderness RLQ drain to RLQ MERLINE with brown drainage ext no edema / no calf tenderness CBC, BMP 03/13/19 06:15 03/13/19 06:10 Microbiology 03/11/19 14:24 Abscess Gram Stain - Final 03/11/19 14:24 Abscess Body Fluid Culture - Preliminary Escherichia Coli Group D Strep Or Entero Coccus 03/06/19 20:00 Blood - Peripheral Venous Blood Culture - Final NO GROWTH AFTER 5 DAYS INCUBATION 03/06/19 18:00 Blood - Peripheral Venous Blood Culture - Final NO GROWTH AFTER 5 DAYS INCUBATION 03/06/19 19:20 Urine - Urine Clean Catch Urine Culture - Final NO GROWTH OBTAINED Active Medications Acetaminophen (Tylenol -) 650 mg PO Q6H PRN PRN Reason: pain level 4-10 Albuterol/Ipratropium (Duoneb -) 1 amp NEB RQID [facility] Last Admin: 03/13/19 08:00 Dose: 1 amp Benzocaine/Menthol (Cepacol Lozenge -) 1 each MM Q4H PRN PRN Reason: SORE THROAT Last Admin: 03/07/19 20:47 Dose: 1 each Diphenhydramine HCl (Benadryl Injection -) 50 mg IVPUSH ONCE PRN PRN Reason: INSOMNIA Last Admin: 03/12/19 03:33 Dose: 50 mg Diphenhydramine HCl (Benadryl Injection -) 50 mg IVPUSH HS PRN PRN Reason: INSOMNIA Last Admin: 03/12/19 23:57 Dose: 50 mg Heparin Sodium (Porcine) (Heparin -) 5,000 unit SQ TID [facility] Last Admin: 03/13/19 05:34 Dose: 5,000 unit Piperacillin Sod/Tazobactam (Sod 4.5 gm/ Dextrose) 100 mls @ 200 mls/hr IVPB Q6H-IV [facility]; Protocol Last Admin: 03/13/19 09:39 Dose: 200 mls/hr Ibuprofen (Motrin -) 600 mg PO Q6H PRN PRN Reason: Pain Level 4-10 Lactobacillus Acidophilus (Bacid -) 1 tab PO DAILY [facility] Last Admin: 03/13/19 09:41 Dose: 1 tab Levetiracetam (Keppra Injection -) 500 mg IVPB BID [facility] Last Admin: 03/13/19 11:10 Dose: 500 mg Lorazepam (Ativan -) 1 mg PO Q12H PRN PRN Reason: ANXIETY Last Admin: 03/09/19 10:33 Dose: 1 mg Ondansetron HCl (Zofran Injection) 4 mg IVPUSH Q6H [facility] Last Admin: 03/13/19 09:47 Dose: 4 mg Oxycodone HCl (Roxicodone -) 5 mg PO Q4H PRN PRN Reason: Pain Level 8-10 BREAKTHROUGH Last Admin: 03/13/19 05:34 Dose: 5 mg Pantoprazole Sodium (Protonix Iv) 40 mg IVPUSH DAILY [facility] Last Admin: 03/13/19 09:39 Dose: 40 mg # Perforated Waldo / s/p lap appendectomy febrile post op CT of abd c/w small collection - s/p IR drainage patient reports feeling much better s/p procedure tolerating diet well ambulate as tolerated continue nebulizer treatments ABX per ID # Seizure disorder - petitie mal Per neurology # OA difficult ambulation due to OA
--- NOTE | 2019-03-13 12:33 | PN ---
Progress Note, Physician History of Present Illness: stable no complaints drainage in place - Current Medication List Current Medications: Active Medications Acetaminophen (Tylenol -) 650 mg PO Q6H PRN PRN Reason: pain level 4-10 Albuterol/Ipratropium (Duoneb -) 1 amp NEB RQID [facility] Last Admin: 03/13/19 08:00 Dose: 1 amp Benzocaine/Menthol (Cepacol Lozenge -) 1 each MM Q4H PRN PRN Reason: SORE THROAT Last Admin: 03/07/19 20:47 Dose: 1 each Diphenhydramine HCl (Benadryl Injection -) 50 mg IVPUSH ONCE PRN PRN Reason: INSOMNIA Last Admin: 03/12/19 03:33 Dose: 50 mg Diphenhydramine HCl (Benadryl Injection -) 50 mg IVPUSH HS PRN PRN Reason: INSOMNIA Last Admin: 03/12/19 23:57 Dose: 50 mg Heparin Sodium (Porcine) (Heparin -) 5,000 unit SQ TID [facility] Last Admin: 03/13/19 05:34 Dose: 5,000 unit Piperacillin Sod/Tazobactam (Sod 4.5 gm/ Dextrose) 100 mls @ 200 mls/hr IVPB Q6H-IV [facility]; Protocol Last Admin: 03/13/19 09:39 Dose: 200 mls/hr Ibuprofen (Motrin -) 600 mg PO Q6H PRN PRN Reason: Pain Level 4-10 Lactobacillus Acidophilus (Bacid -) 1 tab PO DAILY [facility] Last Admin: 03/13/19 09:41 Dose: 1 tab Levetiracetam (Keppra Injection -) 500 mg IVPB BID [facility] Last Admin: 03/13/19 11:10 Dose: 500 mg Lorazepam (Ativan -) 1 mg PO Q12H PRN PRN Reason: ANXIETY Last Admin: 03/09/19 10:33 Dose: 1 mg Ondansetron HCl (Zofran Injection) 4 mg IVPUSH Q6H [facility] Last Admin: 03/13/19 09:47 Dose: 4 mg Oxycodone HCl (Roxicodone -) 5 mg PO Q4H PRN PRN Reason: Pain Level 8-10 [facility] Last Admin: 03/13/19 05:34 Dose: 5 mg Pantoprazole Sodium (Protonix Iv) 40 mg IVPUSH DAILY [facility] Last Admin: 03/13/19 09:39 Dose: 40 mg - Objective Vital Signs: Vital Signs Temperature 98.6 F 03/13/19 10:00 Pulse Rate 65 03/13/19 10:00 Respiratory Rate 18 03/13/19 10:00 Blood Pressure 125/71 03/13/19 10:00 O2 Sat by Pulse Oximetry (%) 100 03/13/19 09:00 Constitutional: Yes: No Distress, Calm Cardiovascular: Yes: Regular Rate and Rhythm Respiratory: Yes: Regular, CTA Bilaterally Gastrointestinal: Yes: Normal Bowel Sounds, Soft, Other (drain in place) Wound/Incision: Yes: Clean/Dry, Well Approximated Neurological: Yes: Alert, Oriented Labs: CBC, BMP 03/13/19 06:15 03/13/19 06:10 Assessment/Plan Problem List - Problems (1) Perforated appendix Code(s): K35.32 - ACUTE APPENDICITIS WITH PERF AND LOC PERITONITIS, W/O ABSCS (2) Leukocytosis Code(s): D72.829 - ELEVATED WHITE BLOOD CELL COUNT, UNSPECIFIED Qualifiers: Leukocytosis type: bandemia Qualified Code(s): D72.825 - Bandemia (3) Abdominal pain in male Code(s): R10.9 - UNSPECIFIED ABDOMINAL PAIN (4) RLQ abdominal tenderness Code(s): R10.813 - RIGHT LOWER QUADRANT ABDOMINAL TENDERNESS Qualifiers: Presence of rebound: present Qualified Code(s): R10.823 - Right lower quadrant rebound abdominal tenderness wbc trending down plan continue abx monitor wbc await for finalization of cx
--- NOTE | 2019-03-13 16:14 | PN ---
Progress Note, Physician History of Present Illness: Covering for Dr. Cabrera: Pt is one week s/p laparoscopic appendectomy for ruptured appendicitis with gross fecal contamination, with primary umbilical hernia repair. He had IR drain placed for postop pelvic abscess, with purulent drainage. Output 30ml from 6am and 30ml earlier today (40 minus 10ml from flush earlier). Culture growing mostly sensitive E. coli and group D strep/enterococcus. On abx per ID, no fever today. Feeling better overall, but notes some feeling of weakness, "weird dreams" in last half hour, resting in bed because he was up ~4am and ambulating earlier. Has had 2 soft, semi-formed BMs. WBC today 13.5. Tolerating regular diet. No N/V. Feels warm but no elevated temp. - Current Medication List Current Medications: Active Medications Acetaminophen (Tylenol -) 650 mg PO Q6H PRN PRN Reason: pain level 4-10 Albuterol/Ipratropium (Duoneb -) 1 amp NEB RQID [facility] Last Admin: 03/13/19 15:42 Dose: 1 amp Benzocaine/Menthol (Cepacol Lozenge -) 1 each MM Q4H PRN PRN Reason: SORE THROAT Last Admin: 03/07/19 20:47 Dose: 1 each Diphenhydramine HCl (Benadryl Injection -) 50 mg IVPUSH ONCE PRN PRN Reason: INSOMNIA Last Admin: 03/12/19 03:33 Dose: 50 mg Diphenhydramine HCl (Benadryl Injection -) 50 mg IVPUSH HS PRN PRN Reason: INSOMNIA Last Admin: 03/12/19 23:57 Dose: 50 mg Heparin Sodium (Porcine) (Heparin -) 5,000 unit SQ TID [facility] Last Admin: 03/13/19 14:13 Dose: 5,000 unit Piperacillin Sod/Tazobactam (Sod 4.5 gm/ Dextrose) 100 mls @ 200 mls/hr IVPB Q6H-IV [facility]; Protocol Last Admin: 03/13/19 14:14 Dose: 200 mls/hr Ibuprofen (Motrin -) 600 mg PO Q6H PRN PRN Reason: Pain Level 4-10 Lactobacillus Acidophilus (Bacid -) 1 tab PO DAILY [facility] Last Admin: 03/13/19 09:41 Dose: 1 tab Levetiracetam (Keppra Injection -) 500 mg IVPB BID [facility] Last Admin: 03/13/19 11:10 Dose: 500 mg Lorazepam (Ativan -) 1 mg PO Q12H PRN PRN Reason: ANXIETY Last Admin: 03/09/19 10:33 Dose: 1 mg Ondansetron HCl (Zofran Injection) 4 mg IVPUSH Q6H [facility] Last Admin: 03/13/19 09:47 Dose: 4 mg Oxycodone HCl (Roxicodone -) 5 mg PO Q4H PRN PRN Reason: Pain Level 8-10 [facility] Last Admin: 03/13/19 05:34 Dose: 5 mg Pantoprazole Sodium (Protonix Iv) 40 mg IVPUSH DAILY [facility] Last Admin: 03/13/19 09:39 Dose: 40 mg - Objective Vital Signs: Vital Signs Temperature 98.8 F 03/13/19 14:09 Pulse Rate 76 03/13/19 14:09 Respiratory Rate 18 03/13/19 14:09 Blood Pressure 116/64 03/13/19 14:09 O2 Sat by Pulse Oximetry (%) 100 03/13/19 09:00 Vital Signs Period Temp Pulse Resp BP Sys/Cerna Pulse Ox Last 24 Hr 98.6 F-100.4 F 65-79 18-18 102-135/64-71 95-100 Tm 100.4 at 5pm yesterday Intake & Output 03/13/19 03/13/19 03/13/19 07:59 15:59 23:59 Intake Total 880 400 Balance 880 400 Intake: IV 480 D5-1/2NS+20 MEQ KCL - 20 480 meq In 1,000 ml @ 125 mls /hr IV ASDIR [facility] Rx#: [id number] IVPB 400 Oral 400 Other: Voiding Method Toilet # Bowel Movements 0 Constitutional: Yes: No Distress, Calm, Obese Eyes: Yes: Conjunctiva Clear, EOM Intact HENT: Yes: Atraumatic, Normocephalic Cardiovascular: Yes: Regular Rate and Rhythm Respiratory: Yes: Regular, CTA Bilaterally Gastrointestinal: Yes: Soft, Abdomen, Obese, Distention (obese/protuberant - some tympany), Hypoactive Bowel Sounds, Tenderness (RLQ, no boyd/guard), Other ( perc drain with seropurulent (little clearer/thinner) fluid in drain bulb) ...Rectal Exam: Yes: Deferred Musculoskeletal: No: Joint Stiffness, Joint Swelling Extremities: No: Cool (skin warm), Cyanosis Integumentary: Yes: Incision (x3, c/d/i). No: Jaundice, Rash Wound/Incision: Yes: Clean/Dry, Well Approximated, Open to air (dermabond on LLQ /suprapubic - dressing removed from umbilical site - incision c/d/i, no drainage on gauze - steristrip left on site) Neurological: Yes: Alert, Oriented Labs: CBC, BMP 03/13/19 06:15 03/13/19 06:10 Problem List - Problems (1) Infection following a procedure, organ and space surgical site, initial encounter Assessment/Plan: s/p IR perc drain for pelvic/RLQ abscess seropurulent fluid in drain bulb, getting thinner/clearer culture with E. coli and group D strep or enterococcus f/u results continue antibiotics per ID clinically improving + bowel function, tolerating diet no fever today wbc sideways continue probiotic encourage OOB/ambulation during day Code(s): T81.43XA - INFCT FOL A PROCEDURE, ORGAN AND SPACE SURGICAL SITE, INIT (2) Perforated appendix Assessment/Plan: POD8 s/p lap appy with primary umbilical hernia repair for perforated appendix with gross fecal contamination postop RLQ/pelvic collection, infected now s/p IR drain tolerating diet + bowel function pt feeling better slowly pain management with nonnarcotics first line - not using really incisions healing ok umbilical site dry, steri left will need to have normal wbc, afebrile at least 24 hrs, nikos diet, ambulatory and po pain meds for d/c home cont abx per ID will likely go home with drain in place to complete abx course Code(s): K35.32 - ACUTE APPENDICITIS WITH PERF AND LOC PERITONITIS, W/O ABSCS (3) Umbilical hernia without mention of obstruction or gangrene Assessment/Plan: repaired at time of OR Code(s): K42.9 - UMBILICAL HERNIA WITHOUT OBSTRUCTION OR GANGRENE Qualifiers: Obstruction and gangrene presence: without obstruction or gangrene Qualified Code(s): K42.9 - Umbilical hernia without obstruction or gangrene (4) Leukocytosis Assessment/Plan: sideways today, up slightly Code(s): D72.829 - ELEVATED WHITE BLOOD CELL COUNT, UNSPECIFIED Qualifiers: Leukocytosis type: bandemia Qualified Code(s): D72.825 - Bandemia (5) Fever presenting with conditions classified elsewhere Assessment/Plan: none today Code(s): R50.81 - FEVER PRESENTING WITH CONDITIONS CLASSIFIED ELSEWHERE
[2019-03-13] MEDS: ACETAMINOPHEN 325 MG TABLET (FP) PO PRN (16:38)
[2019-03-14] MEDS ORDERED: DEXTROSE 5%-WATER 100 ML IVPB ONE ×4 (01:57→20:46)
[2019-03-14] MEDS ORDERED: PIPERACILLIN/TAZOBACTAM 4.5 GM VIAL IVPB ONE ×4 (01:57→20:46)
[2019-03-14] MEDS: PIPERACILLIN/TAZOB 4.5 GM 4.5 GM in DEXTROSE 5%-WATER 100 ML IVPB SCH ×4 (02:05→22:13)
[2019-03-14] MEDS: IBUPROFEN 600 MG TABLET (FP) PO PRN (05:22)
[2019-03-14] MEDS: HEPARIN NA (PORCINE) 5,000 UNITS/ML 1ML VIAL SQ SCH ×3 (05:26→21:07)
[2019-03-14] MEDS: ONDANSETRON 4 MG/2 ML VIAL IVPUSH SCH ×4 (05:27→23:45)
[2019-03-14 07:19] LABS: BASO % 0.7 % (0-2.0); EOS % 2.4 % (0-4.5); HEMATOCRIT 37.6 % (35.4-49); HEMOGLOBIN 12.9 GM/dL (11.7-16.9); LYMPH % 8.7 % (8-40); MCHC 34.4 g/dl (32.0-35.9); MEAN CELL VOLUME 87.2 fl (80-96); MEAN PLT VOLUME 6.7 fl (7.5-11.1); MONO % 7.1 % (3.8-10.2); NEUT % 81.1 % (42.8-82.8); RBC 4.31 M/mm3 (4.00-5.60); RDW 13.3 % (11.9-15.9); WHITE BLOOD COUNT 13.7 K/mm3 (4.0-10.0)
[2019-03-14 07:25] LABS: BILIRUBIN,TOTAL 0.4 mg/dL (0.2-1); BLOOD UREA NITROGEN 11.3 mg/dL (7-18); CALCIUM 8.5 mg/dL (8.5-10.1); CREATININE 0.9 mg/dL (0.55-1.3); POTASSIUM 4.4 mmol/L (3.5-5.1); TOT PROT 6.8 g/dl (6.4-8.2)
[2019-03-14] MEDS: ALBUTEROL SO4 2.5/IPRATROPIUM 0.5 INH SOL 3 ML VIAL.NEB. NEB SCH ×4 (08:25→20:58)
[2019-03-14] MEDS: LACTOBACILLUS ACIDOPHILUS 1 TABLET PO SCH (10:07)
[2019-03-14] MEDS: PANTOPRAZOLE SODIUM 40 MG VIAL IVPUSH SCH (10:07)
--- NOTE | 2019-03-14 10:22 | PN ---
Progress Note, Physician Chief Complaint: abdominal pain History of Present Illness: 58 yo male who comes in complaining of abdominal pain. Abdominal pain was initially diffuse and now is more right lower quadrant. He has been stable postoperatively but has been febrile. Stable after IR drainge improving clinically. - Current Medication List Current Medications: Active Medications Acetaminophen (Tylenol -) 650 mg PO Q6H PRN PRN Reason: pain level 4-10 Last Admin: 03/13/19 16:38 Dose: 650 mg Albuterol/Ipratropium (Duoneb -) 1 amp NEB RQID [facility] Last Admin: 03/14/19 08:25 Dose: 1 amp Benzocaine/Menthol (Cepacol Lozenge -) 1 each MM Q4H PRN PRN Reason: SORE THROAT Last Admin: 03/07/19 20:47 Dose: 1 each Diphenhydramine HCl (Benadryl Injection -) 50 mg IVPUSH ONCE PRN PRN Reason: INSOMNIA Last Admin: 03/13/19 22:35 Dose: 50 mg Diphenhydramine HCl (Benadryl Injection -) 50 mg IVPUSH HS PRN PRN Reason: INSOMNIA Last Admin: 03/12/19 23:57 Dose: 50 mg Heparin Sodium (Porcine) (Heparin -) 5,000 unit SQ TID [facility] Last Admin: 03/14/19 05:26 Dose: 5,000 unit Piperacillin Sod/Tazobactam (Sod 4.5 gm/ Dextrose) 100 mls @ 200 mls/hr IVPB Q6H-IV [facility]; Protocol Last Admin: 03/14/19 10:07 Dose: 200 mls/hr Ibuprofen (Motrin -) 600 mg PO Q6H PRN PRN Reason: Pain Level 4-10 Last Admin: 03/14/19 05:22 Dose: 600 mg Lactobacillus Acidophilus (Bacid -) 1 tab PO DAILY [facility] Last Admin: 03/14/19 10:07 Dose: 1 tab Levetiracetam (Keppra Injection -) 500 mg IVPB BID [facility] Last Admin: 03/13/19 21:45 Dose: 500 mg Lorazepam (Ativan -) 1 mg PO Q12H PRN PRN Reason: ANXIETY Last Admin: 03/09/19 10:33 Dose: 1 mg Ondansetron HCl (Zofran Injection) 4 mg IVPUSH Q6H [facility] Last Admin: 03/14/19 10:08 Dose: 4 mg Oxycodone HCl (Roxicodone -) 5 mg PO Q4H PRN PRN Reason: Pain Level 8-10 [facility]ROUGH Last Admin: 03/13/19 05:34 Dose: 5 mg Pantoprazole Sodium (Protonix Iv) 40 mg IVPUSH DAILY [facility] Last Admin: 03/14/19 10:07 Dose: 40 mg - Objective Vital Signs: Vital Signs Temperature 99.8 F H 03/13/19 20:30 Pulse Rate 76 03/13/19 20:30 Respiratory Rate 17 03/13/19 20:30 Blood Pressure 140/80 03/13/19 20:30 O2 Sat by Pulse Oximetry (%) 99 03/13/19 20:22 Constitutional: Yes: Well Nourished, No Distress, Calm, Obese Eyes: Yes: Conjunctiva Clear, EOM Intact HENT: Yes: Atraumatic, Normocephalic Neck: Yes: Supple, Trachea Midline Cardiovascular: Yes: Regular Rate and Rhythm, S1, S2 Respiratory: Yes: Regular, CTA Bilaterally Gastrointestinal: Yes: Normal Bowel Sounds, Soft, Abdomen, Obese. No: Tenderness ...Rectal Exam: Yes: Deferred Genitourinary: No: CVA Tenderness - Left, CVA Tenderness - Right Breast(s): No: Mass, Skin Changes Musculoskeletal: No: Muscle Pain, Muscle Weakness Extremities: No: Cold, Cool Edema: No Peripheral Pulses WNL: Yes Peripheral Pulses: Left Radial: 2+, Right Radial: 2+, Left Doralis Pedis: 2+, Right Dorsalis Pedis: 2+, Left Femoral: 2+, Right Femoral: 2+ Wound/Incision: Yes: Clean/Dry, Well Approximated Neurological: Yes: Alert, Oriented Psychiatric: Yes: Alert, Oriented Labs: CBC, BMP 03/14/19 06:22 03/14/19 06:22 Problem List - Problems (1) Perforated appendix Assessment/Plan: 58 yo male with Acute ruptured appendicitis POD#9 s/p laparoscopic appendectomy , gross fecal contamination of the abdomen, now resolving fevers. previous CT scan of the abdomen had no organized collections. He is passing flatus and has improved bowel sounds. IR drained intraabdominal abscess, which is a know possibility with such contramination. Patient short been imprving since Continue diet continue IV antibiotics Adequate analgesia will follow Code(s): K35.32 - ACUTE APPENDICITIS WITH PERF AND LOC PERITONITIS, W/O ABSCS (2) Leukocytosis Code(s): D72.829 - ELEVATED WHITE BLOOD CELL COUNT, UNSPECIFIED Qualifiers: Leukocytosis type: bandemia Qualified Code(s): D72.825 - Bandemia (3) Abdominal pain in male Code(s): R10.9 - UNSPECIFIED ABDOMINAL PAIN (4) RLQ abdominal tenderness Code(s): R10.813 - RIGHT LOWER QUADRANT ABDOMINAL TENDERNESS Qualifiers: Presence of rebound: present Qualified Code(s): R10.823 - Right lower quadrant rebound abdominal tenderness
--- NOTE | 2019-03-14 10:22 | PN ---
Progress Note, Physician History of Present Illness: stable feels better still draining jacob pus - Current Medication List Current Medications: Active Medications Acetaminophen (Tylenol -) 650 mg PO Q6H PRN PRN Reason: pain level 4-10 Last Admin: 03/13/19 16:38 Dose: 650 mg Albuterol/Ipratropium (Duoneb -) 1 amp NEB RQID [facility] Last Admin: 03/14/19 08:25 Dose: 1 amp Benzocaine/Menthol (Cepacol Lozenge -) 1 each MM Q4H PRN PRN Reason: SORE THROAT Last Admin: 03/07/19 20:47 Dose: 1 each Diphenhydramine HCl (Benadryl Injection -) 50 mg IVPUSH ONCE PRN PRN Reason: INSOMNIA Last Admin: 03/13/19 22:35 Dose: 50 mg Diphenhydramine HCl (Benadryl Injection -) 50 mg IVPUSH HS PRN PRN Reason: INSOMNIA Last Admin: 03/12/19 23:57 Dose: 50 mg Heparin Sodium (Porcine) (Heparin -) 5,000 unit SQ TID [facility] Last Admin: 03/14/19 05:26 Dose: 5,000 unit Piperacillin Sod/Tazobactam (Sod 4.5 gm/ Dextrose) 100 mls @ 200 mls/hr IVPB Q6H-IV [facility]; Protocol Last Admin: 03/14/19 10:07 Dose: 200 mls/hr Ibuprofen (Motrin -) 600 mg PO Q6H PRN PRN Reason: Pain Level 4-10 Last Admin: 03/14/19 05:22 Dose: 600 mg Lactobacillus Acidophilus (Bacid -) 1 tab PO DAILY [facility] Last Admin: 03/14/19 10:07 Dose: 1 tab Levetiracetam (Keppra Injection -) 500 mg IVPB BID [facility] Last Admin: 03/13/19 21:45 Dose: 500 mg Lorazepam (Ativan -) 1 mg PO Q12H PRN PRN Reason: ANXIETY Last Admin: 03/09/19 10:33 Dose: 1 mg Ondansetron HCl (Zofran Injection) 4 mg IVPUSH Q6H [facility] Last Admin: 03/14/19 10:08 Dose: 4 mg Oxycodone HCl (Roxicodone -) 5 mg PO Q4H PRN PRN Reason: Pain Level 8-10 BREAKTHROUGH Last Admin: 03/13/19 05:34 Dose: 5 mg Pantoprazole Sodium (Protonix Iv) 40 mg IVPUSH DAILY [facility] Last Admin: 03/14/19 10:07 Dose: 40 mg - Objective Vital Signs: Vital Signs Temperature 99.8 F H 03/13/19 20:30 Pulse Rate 76 03/13/19 20:30 Respiratory Rate 17 03/13/19 20:30 Blood Pressure 140/80 03/13/19 20:30 O2 Sat by Pulse Oximetry (%) 99 03/13/19 20:22 Constitutional: Yes: No Distress, Calm Cardiovascular: Yes: Regular Rate and Rhythm Respiratory: Yes: Regular, CTA Bilaterally Gastrointestinal: Yes: Normal Bowel Sounds, Soft, Other (drain in place) Musculoskeletal: Yes: WNL Extremities: Yes: WNL Neurological: Yes: Alert, Oriented Psychiatric: Yes: Alert, Oriented Labs: CBC, BMP 03/14/19 06:22 03/14/19 06:22 Assessment/Plan Problem List - Problems (1) Perforated appendix Code(s): K35.32 - ACUTE APPENDICITIS WITH PERF AND LOC PERITONITIS, W/O ABSCS (2) Leukocytosis Code(s): D72.829 - ELEVATED WHITE BLOOD CELL COUNT, UNSPECIFIED Qualifiers: Leukocytosis type: bandemia Qualified Code(s): D72.825 - Bandemia (3) Abdominal pain in male Code(s): R10.9 - UNSPECIFIED ABDOMINAL PAIN (4) RLQ abdominal tenderness Code(s): R10.813 - RIGHT LOWER QUADRANT ABDOMINAL TENDERNESS Qualifiers: Presence of rebound: present Qualified Code(s): R10.823 - Right lower quadrant rebound abdominal tenderness wbc trending down plan continue abx monitor wbc await for finalization of cx
[2019-03-14] MEDS: levETIRAcetam 500 MG/5 ML INJECTION VIAL IVPB SCH ×2 (10:57→21:07)
--- NOTE | 2019-03-14 11:11 | PN ---
Progress Note (short form) - Note Progress Note: 58 y/o male found sitting in bed. Denies abd pain at present but reports burning after defecation. Vital Signs Period Temp Pulse Resp BP Sys/Cerna Pulse Ox Last 24 Hr 98.8 F-99.8 F 76-80 17-18 116-140/64-80 99 CBC, BMP 03/14/19 06:22 03/14/19 06:22 HEENT- normocephalic Neck- supple Lungs- CTAB Heart- S1/S2 Abd- soft, drain in place Ext- No LE edema Active Medications Acetaminophen (Tylenol -) 650 mg PO Q6H PRN PRN Reason: pain level 4-10 Last Admin: 03/13/19 16:38 Dose: 650 mg Albuterol/Ipratropium (Duoneb -) 1 amp NEB RQID [facility] Last Admin: 03/14/19 08:25 Dose: 1 amp Benzocaine/Menthol (Cepacol Lozenge -) 1 each MM Q4H PRN PRN Reason: SORE THROAT Last Admin: 03/07/19 20:47 Dose: 1 each Diphenhydramine HCl (Benadryl Injection -) 50 mg IVPUSH ONCE PRN PRN Reason: INSOMNIA Last Admin: 03/13/19 22:35 Dose: 50 mg Diphenhydramine HCl (Benadryl Injection -) 50 mg IVPUSH HS PRN PRN Reason: INSOMNIA Last Admin: 03/12/19 23:57 Dose: 50 mg Heparin Sodium (Porcine) (Heparin -) 5,000 unit SQ TID [facility] Last Admin: 03/14/19 05:26 Dose: 5,000 unit Piperacillin Sod/Tazobactam (Sod 4.5 gm/ Dextrose) 100 mls @ 200 mls/hr IVPB Q6H-IV [facility]; Protocol Last Admin: 03/14/19 10:07 Dose: 200 mls/hr Ibuprofen (Motrin -) 600 mg PO Q6H PRN PRN Reason: Pain Level 4-10 Last Admin: 03/14/19 05:22 Dose: 600 mg Lactobacillus Acidophilus (Bacid -) 1 tab PO DAILY [facility] Last Admin: 03/14/19 10:07 Dose: 1 tab Levetiracetam (Keppra Injection -) 500 mg IVPB BID [facility] Last Admin: 03/14/19 10:57 Dose: 500 mg Lorazepam (Ativan -) 1 mg PO Q12H PRN PRN Reason: ANXIETY Last Admin: 03/09/19 10:33 Dose: 1 mg Ondansetron HCl (Zofran Injection) 4 mg IVPUSH Q6H [facility] Last Admin: 03/14/19 10:08 Dose: 4 mg Oxycodone HCl (Roxicodone -) 5 mg PO Q4H PRN PRN Reason: Pain Level 8-10 BREAKTHROUGH Last Admin: 03/13/19 05:34 Dose: 5 mg Pantoprazole Sodium (Protonix Iv) 40 mg IVPUSH DAILY [facility] Last Admin: 03/14/19 10:07 Dose: 40 mg # Perforated Waldo / s/p lap appendectomy CT of abd c/w small collection patient reports feeling much better s/p IR drainage Eating/ ambulating well continue nebulizer treatments ABX per ID/ Trend WBC continue to evaluate pain mgmt # rectal burning Anusol ordered # Seizure disorder - petit mal continue keppra BID # OA Continue ambulation
[2019-03-14] MEDS ORDERED: PT OWN MED DRAWER 7, Y5N ONE (12:24)
[2019-03-14 13:03] LABS: PLATELET ESTIMATE INCREASED
[2019-03-14 13:46] LABS: PLATELET COUNT 502 K/MM3 (134-434)
[2019-03-14] MEDS: HYDROCORTISONE 2.5% TOPICAL CREAM 30 GM TUBE PR SCH (14:01)
[2019-03-14] MEDS: oxyCODONE HCL 5 MG TABLET PO PRN (21:07)
[2019-03-14] MEDS: ACETAMINOPHEN 325 MG TABLET (FP) PO PRN (21:08)
[2019-03-15] MEDS ORDERED: PIPERACILLIN/TAZOBACTAM 4.5 GM VIAL IVPB ONE ×4 (02:17→20:51)
[2019-03-15] MEDS ORDERED: DEXTROSE 5%-WATER 100 ML IVPB ONE ×4 (02:18→20:51)
[2019-03-15] MEDS: oxyCODONE HCL 5 MG TABLET PO PRN ×4 (02:57→21:14)
[2019-03-15] MEDS: PIPERACILLIN/TAZOB 4.5 GM 4.5 GM in DEXTROSE 5%-WATER 100 ML IVPB SCH ×4 (03:57→21:09)
[2019-03-15] MEDS: ONDANSETRON 4 MG/2 ML VIAL IVPUSH SCH ×4 (03:57→23:00)
[2019-03-15] MEDS: HEPARIN NA (PORCINE) 5,000 UNITS/ML 1ML VIAL SQ SCH ×3 (06:05→21:13)
[2019-03-15] MEDS: ALBUTEROL SO4 2.5/IPRATROPIUM 0.5 INH SOL 3 ML VIAL.NEB. NEB SCH ×4 (07:05→20:10)
[2019-03-15 08:00] LABS: BASO % 0.7 % (0-2.0); EOS % 2.8 % (0-4.5); HEMATOCRIT 37.4 % (35.4-49); HEMOGLOBIN 12.4 GM/dL (11.7-16.9); LYMPH % 11.7 % (8-40); MCH 29.8 pg (25.7-33.7); MCHC 33.3 g/dl (32.0-35.9); MEAN CELL VOLUME 89.4 fl (80-96); MEAN PLT VOLUME 6.8 fl (7.5-11.1); NEUT % 77.8 % (42.8-82.8); RBC 4.18 M/mm3 (4.00-5.60); RDW 13.4 % (11.9-15.9); WHITE BLOOD COUNT 12.4 K/mm3 (4.0-10.0)
[2019-03-15 08:28] LABS: BLOOD UREA NITROGEN 15.4 mg/dL (7-18); CALCIUM 8.9 mg/dL (8.5-10.1); CREATININE 1.1 mg/dL (0.55-1.3); PLATELET COUNT 487 K/MM3 (134-434); POTASSIUM 4.9 mmol/L (3.5-5.1)
--- NOTE | 2019-03-15 08:44 | PN ---
Progress Note, Physician History of Present Illness: patient still draianing jacob pus no complaints has reained afebrile for more than 24 hours - Current Medication List Current Medications: Active Medications Acetaminophen (Tylenol -) 650 mg PO Q6H PRN PRN Reason: pain level 4-10 Last Admin: 03/14/19 21:08 Dose: 650 mg Albuterol/Ipratropium (Duoneb -) 1 amp NEB RQID [facility] Last Admin: 03/14/19 20:58 Dose: 1 amp Benzocaine/Menthol (Cepacol Lozenge -) 1 each MM Q4H PRN PRN Reason: SORE THROAT Last Admin: 03/07/19 20:47 Dose: 1 each Diphenhydramine HCl (Benadryl Injection -) 50 mg IVPUSH ONCE PRN PRN Reason: INSOMNIA Last Admin: 03/13/19 22:35 Dose: 50 mg Diphenhydramine HCl (Benadryl Injection -) 50 mg IVPUSH HS PRN PRN Reason: INSOMNIA Last Admin: 03/14/19 21:07 Dose: 50 mg Heparin Sodium (Porcine) (Heparin -) 5,000 unit SQ TID [facility] Last Admin: 03/15/19 06:05 Dose: 5,000 unit Hydrocortisone (Anusol 2.5% Hc Cream -) 1 applic UT DAILY [facility] Last Admin: 03/14/19 14:01 Dose: 1 applic Piperacillin Sod/Tazobactam (Sod 4.5 gm/ Dextrose) 100 mls @ 200 mls/hr IVPB Q6H-IV [facility]; Protocol Last Admin: 03/15/19 03:57 Dose: 200 mls/hr Ibuprofen (Motrin -) 600 mg PO Q6H PRN PRN Reason: Pain Level 4-10 Last Admin: 03/14/19 05:22 Dose: 600 mg Lactobacillus Acidophilus (Bacid -) 1 tab PO DAILY [facility] Last Admin: 03/14/19 10:07 Dose: 1 tab Levetiracetam (Keppra Injection -) 500 mg IVPB BID [facility] Last Admin: 03/14/19 21:07 Dose: 500 mg Lorazepam (Ativan -) 1 mg PO Q12H PRN PRN Reason: ANXIETY Last Admin: 03/09/19 10:33 Dose: 1 mg Ondansetron HCl (Zofran Injection) 4 mg IVPUSH Q6H [facility] Last Admin: 03/15/19 03:57 Dose: 4 mg Oxycodone HCl (Roxicodone -) 5 mg PO Q4H PRN PRN Reason: Pain Level 8-10 BREAKTHROUGH Last Admin: 03/15/19 02:57 Dose: 5 mg Pantoprazole Sodium (Protonix Iv) 40 mg IVPUSH DAILY [facility] Last Admin: 03/14/19 10:07 Dose: 40 mg - Objective Vital Signs: Vital Signs Temperature 98.0 F 03/15/19 05:22 Pulse Rate 81 03/15/19 05:22 Respiratory Rate 20 03/15/19 05:22 Blood Pressure 105/66 03/15/19 05:22 O2 Sat by Pulse Oximetry (%) 98 03/14/19 21:00 Constitutional: Yes: No Distress, Calm, Obese Cardiovascular: Yes: Regular Rate and Rhythm Respiratory: Yes: Regular, CTA Bilaterally Gastrointestinal: Yes: Normal Bowel Sounds, Soft Musculoskeletal: Yes: WNL Extremities: Yes: WNL Neurological: Yes: Alert, Oriented Psychiatric: Yes: Alert, Oriented Labs: CBC, BMP 03/15/19 06:50 03/15/19 06:50 Assessment/Plan Problem List - Problems (1) Perforated appendix Code(s): K35.32 - ACUTE APPENDICITIS WITH PERF AND LOC PERITONITIS, W/O ABSCS (2) Leukocytosis Code(s): D72.829 - ELEVATED WHITE BLOOD CELL COUNT, UNSPECIFIED Qualifiers: Leukocytosis type: bandemia Qualified Code(s): D72.825 - Bandemia (3) Abdominal pain in male Code(s): R10.9 - UNSPECIFIED ABDOMINAL PAIN (4) RLQ abdominal tenderness Code(s): R10.813 - RIGHT LOWER QUADRANT ABDOMINAL TENDERNESS Qualifiers: Presence of rebound: present Qualified Code(s): R10.823 - Right lower quadrant rebound abdominal tenderness wbc trending down plan continue abx monitor wbc
[2019-03-15] MEDS: PANTOPRAZOLE SODIUM 40 MG VIAL IVPUSH SCH (09:21)
[2019-03-15] MEDS: LACTOBACILLUS ACIDOPHILUS 1 TABLET PO SCH (09:21)
[2019-03-15] MEDS: HYDROCORTISONE 2.5% TOPICAL CREAM 30 GM TUBE PR SCH (09:22)
--- NOTE | 2019-03-15 10:26 | PN ---
Progress Note (short form) - Note Progress Note: 58 y/o male found lying in bed using Nebulizer machine. Reports slight groin pain/ RLQ. Medication effective.States no BM today but less irritation after BM yest. Vital Signs Period Temp Pulse Resp BP Sys/Cerna Pulse Ox Last 24 Hr 98.0 F-98.9 F 66-81 18-20 105-127/66-77 98 CBC, BMP 03/15/19 06:50 03/15/19 06:50 HEENT- Normocephalic Neck- Supple Lungs- CTAB Heart- S1/S2 Abd- Soft, NT, Drain in place Approx 25 cc purulent drainage in 2 hours Ext- NO LE edema Active Medications Acetaminophen (Tylenol -) 650 mg PO Q6H PRN PRN Reason: pain level 4-10 Last Admin: 03/14/19 21:08 Dose: 650 mg Albuterol/Ipratropium (Duoneb -) 1 amp NEB RQID [facility] Last Admin: 03/15/19 07:05 Dose: 1 amp Benzocaine/Menthol (Cepacol Lozenge -) 1 each MM Q4H PRN PRN Reason: SORE THROAT Last Admin: 03/07/19 20:47 Dose: 1 each Diphenhydramine HCl (Benadryl Injection -) 50 mg IVPUSH ONCE PRN PRN Reason: INSOMNIA Last Admin: 03/13/19 22:35 Dose: 50 mg Diphenhydramine HCl (Benadryl Injection -) 50 mg IVPUSH HS PRN PRN Reason: INSOMNIA Last Admin: 03/14/19 21:07 Dose: 50 mg Heparin Sodium (Porcine) (Heparin -) 5,000 unit SQ TID [facility] Last Admin: 03/15/19 06:05 Dose: 5,000 unit Hydrocortisone (Anusol 2.5% Hc Cream -) 1 applic [place] DAILY [facility] Last Admin: 03/15/19 09:22 Dose: 1 applic Piperacillin Sod/Tazobactam (Sod 4.5 gm/ Dextrose) 100 mls @ 200 mls/hr IVPB Q6H-IV [facility]; Protocol Last Admin: 03/15/19 09:20 Dose: 200 mls/hr Ibuprofen (Motrin -) 600 mg PO Q6H PRN PRN Reason: Pain Level 4-10 Last Admin: 03/14/19 05:22 Dose: 600 mg Lactobacillus Acidophilus (Bacid -) 1 tab PO DAILY [facility] Last Admin: 03/15/19 09:21 Dose: 1 tab Levetiracetam (Keppra Injection -) 500 mg IVPB BID [facility] Last Admin: 03/14/19 21:07 Dose: 500 mg Lorazepam (Ativan -) 1 mg PO Q12H PRN PRN Reason: ANXIETY Last Admin: 03/09/19 10:33 Dose: 1 mg Ondansetron HCl (Zofran Injection) 4 mg IVPUSH Q6H [facility] Last Admin: 03/15/19 03:57 Dose: 4 mg Oxycodone HCl (Roxicodone -) 5 mg PO Q4H PRN PRN Reason: Pain Level 8-10 BREAKTHROUGH Last Admin: 03/15/19 02:57 Dose: 5 mg Pantoprazole Sodium (Protonix Iv) 40 mg IVPUSH DAILY [facility] Last Admin: 03/15/19 09:21 Dose: 40 mg # Perforated Waldo / s/p lap appendectomy CT of abd c/w small collection s/p IR drainage Eating/ ambulating well continue nebulizer treatments ABX per ID/ WBC trending down continue to evaluate pain mgmt # rectal burning Anusol effective # Seizure disorder - petit mal continue keppra BID # OA Continue ambulation
[2019-03-15] MEDS: levETIRAcetam 500 MG/5 ML INJECTION VIAL IVPB SCH ×2 (10:38→21:13)
[2019-03-15] MEDS: ACETAMINOPHEN 325 MG TABLET (FP) PO PRN (21:14)
[2019-03-16] MEDS ORDERED: PIPERACILLIN/TAZOBACTAM 4.5 GM VIAL IVPB ONE ×4 (02:16→21:26)
[2019-03-16] MEDS ORDERED: DEXTROSE 5%-WATER 100 ML IVPB ONE ×4 (02:16→21:26)
[2019-03-16] MEDS: PIPERACILLIN/TAZOB 4.5 GM 4.5 GM in DEXTROSE 5%-WATER 100 ML IVPB SCH ×4 (02:52→22:06)
[2019-03-16] MEDS: HEPARIN NA (PORCINE) 5,000 UNITS/ML 1ML VIAL SQ SCH ×3 (05:38→22:07)
[2019-03-16] MEDS: ONDANSETRON 4 MG/2 ML VIAL IVPUSH SCH ×4 (05:39→22:08)
[2019-03-16] MEDS: IBUPROFEN 600 MG TABLET (FP) PO PRN (05:45)
[2019-03-16 07:22] LABS: EOS % 2.9 % (0-4.5); HEMATOCRIT 38.3 % (35.4-49); HEMOGLOBIN 12.9 GM/dL (11.7-16.9); LYMPH % 10.1 % (8-40); MCH 29.8 pg (25.7-33.7); MCHC 33.7 g/dl (32.0-35.9); MEAN CELL VOLUME 88.4 fl (80-96); MEAN PLT VOLUME 6.7 fl (7.5-11.1); MONO % 7.7 % (3.8-10.2); NEUT % 78.3 % (42.8-82.8); PLATELET COUNT 517 K/MM3 (134-434); RBC 4.33 M/mm3 (4.00-5.60); RDW 13.3 % (11.9-15.9); WHITE BLOOD COUNT 11.5 K/mm3 (4.0-10.0)
[2019-03-16 07:36] LABS: BLOOD UREA NITROGEN 13.6 mg/dL (7-18); CALCIUM 8.8 mg/dL (8.5-10.1); POTASSIUM 4.6 mmol/L (3.5-5.1)
[2019-03-16] MEDS: ALBUTEROL SO4 2.5/IPRATROPIUM 0.5 INH SOL 3 ML VIAL.NEB. NEB SCH ×4 (08:30→20:20)
--- NOTE | 2019-03-16 09:19 | PN ---
Progress Note (short form) - Note Progress Note: patient sitting in [facility] MERLINE with drainage cloudy c/o of lower back pain started yesterday has remained afebrile / toleating PO diet well Vital Signs Period Temp Pulse Resp BP Sys/Cerna Pulse Ox Last 24 Hr 97.6 F-99.5 F 61-83 20-20 112-132/63-73 96 afebrile neck - jvd heart S1/S2 2/6SEM regular lungs clear bilat abd soft / appropriate tenderness RLQ drain to RLQ MERLINE with cluody white drainage scotum swollen right side ext no edema / no calf tenderness CBC, BMP 03/16/19 05:42 03/16/19 05:42 Microbiology 03/11/19 14:24 Abscess Gram Stain - Final 03/11/19 14:24 Abscess Body Fluid Culture - Preliminary Escherichia Coli Streptococcus Species 03/11/19 14:24 Abscess Anaerobic Culture - Final NO ANAEROBES WERE ISOLATED 03/06/19 20:00 Blood - Peripheral Venous Blood Culture - Final NO GROWTH AFTER 5 DAYS INCUBATION 03/06/19 18:00 Blood - Peripheral Venous Blood Culture - Final NO GROWTH AFTER 5 DAYS INCUBATION 03/06/19 19:20 Urine - Urine Clean Catch Urine Culture - Final NO GROWTH OBTAINED Active Medications Acetaminophen (Tylenol -) 650 mg PO Q6H PRN PRN Reason: pain level 4-10 Last Admin: 03/15/19 21:14 Dose: 650 mg Albuterol/Ipratropium (Duoneb -) 1 amp NEB RQID [facility] Last Admin: 03/16/19 08:30 Dose: Not Given Benzocaine/Menthol (Cepacol Lozenge -) 1 each MM Q4H PRN PRN Reason: SORE THROAT Last Admin: 03/07/19 20:47 Dose: 1 each Diphenhydramine HCl (Benadryl Injection -) 50 mg IVPUSH ONCE PRN PRN Reason: INSOMNIA Last Admin: 03/15/19 21:13 Dose: 50 mg Diphenhydramine HCl (Benadryl Injection -) 50 mg IVPUSH HS PRN PRN Reason: INSOMNIA Last Admin: 03/14/19 21:07 Dose: 50 mg Heparin Sodium (Porcine) (Heparin -) 5,000 unit SQ TID [facility] Last Admin: 03/16/19 05:38 Dose: 5,000 unit Hydrocortisone (Anusol 2.5% Hc Cream -) 1 applic HI DAILY [facility] Last Admin: 03/15/19 09:22 Dose: 1 applic Piperacillin Sod/Tazobactam (Sod 4.5 gm/ Dextrose) 100 mls @ 200 mls/hr IVPB Q6H-IV [facility]; Protocol Last Admin: 03/16/19 02:52 Dose: 200 mls/hr Ibuprofen (Motrin -) 600 mg PO Q6H PRN PRN Reason: Pain Level 4-10 Last Admin: 03/16/19 05:45 Dose: 600 mg Lactobacillus Acidophilus (Bacid -) 1 tab PO DAILY [facility] Last Admin: 03/15/19 09:21 Dose: 1 tab Levetiracetam (Keppra Injection -) 500 mg IVPB BID [facility] Last Admin: 03/15/19 21:13 Dose: 500 mg Lorazepam (Ativan -) 1 mg PO Q12H PRN PRN Reason: ANXIETY Last Admin: 03/09/19 10:33 Dose: 1 mg Ondansetron HCl (Zofran Injection) 4 mg IVPUSH Q6H [facility] Last Admin: 03/16/19 05:39 Dose: 4 mg Oxycodone HCl (Roxicodone -) 5 mg PO Q4H PRN PRN Reason: Pain Level 8-10 BREAKTHROUGH Last Admin: 03/15/19 21:14 Dose: 5 mg Pantoprazole Sodium (Protonix Iv) 40 mg IVPUSH DAILY [facility] Last Admin: 03/15/19 09:21 Dose: 40 mg # Perforated Waldo / s/p lap appendectomy febrile post op CT of abd c/w small collection - s/p IR drainage patient reports feeling much better s/p procedure tolerating diet well ambulate as tolerated continue nebulizer treatments continues to drain purulent d/c ABX per ID will need repeat CT prior to d/c #swollen scrotum keep elevated # Seizure disorder - petite mal Per neurology # OA stable
[2019-03-16] MEDS: LACTOBACILLUS ACIDOPHILUS 1 TABLET PO SCH (09:52)
[2019-03-16] MEDS: PANTOPRAZOLE SODIUM 40 MG VIAL IVPUSH SCH (09:53)
[2019-03-16] MEDS: HYDROCORTISONE 2.5% TOPICAL CREAM 30 GM TUBE PR SCH (09:53)
[2019-03-16] MEDS: levETIRAcetam 500 MG/5 ML INJECTION VIAL IVPB SCH ×2 (10:35→22:50)
[2019-03-16] MEDS: oxyCODONE HCL 5 MG TABLET PO PRN ×3 (11:15→22:55)
--- NOTE | 2019-03-16 12:37 | PN ---
Progress Note, Physician - Current Medication List Current Medications: Active Medications Acetaminophen (Tylenol -) 650 mg PO Q6H PRN PRN Reason: pain level 4-10 Last Admin: 03/15/19 21:14 Dose: 650 mg Albuterol/Ipratropium (Duoneb -) 1 amp NEB RQID [facility] Last Admin: 03/16/19 08:30 Dose: Not Given Benzocaine/Menthol (Cepacol Lozenge -) 1 each MM Q4H PRN PRN Reason: SORE THROAT Last Admin: 03/07/19 20:47 Dose: 1 each Diphenhydramine HCl (Benadryl Injection -) 50 mg IVPUSH ONCE PRN PRN Reason: INSOMNIA Last Admin: 03/15/19 21:13 Dose: 50 mg Diphenhydramine HCl (Benadryl Injection -) 50 mg IVPUSH HS PRN PRN Reason: INSOMNIA Last Admin: 03/14/19 21:07 Dose: 50 mg Heparin Sodium (Porcine) (Heparin -) 5,000 unit SQ TID [facility] Last Admin: 03/16/19 05:38 Dose: 5,000 unit Hydrocortisone (Anusol 2.5% Hc Cream -) 1 applic [place] DAILY [facility] Last Admin: 03/16/19 09:53 Dose: 1 applic Piperacillin Sod/Tazobactam (Sod 4.5 gm/ Dextrose) 100 mls @ 200 mls/hr IVPB Q6H-IV [facility]; Protocol Last Admin: 03/16/19 09:53 Dose: 200 mls/hr Ibuprofen (Motrin -) 600 mg PO Q6H PRN PRN Reason: Pain Level 4-10 Last Admin: 03/16/19 05:45 Dose: 600 mg Lactobacillus Acidophilus (Bacid -) 1 tab PO DAILY [facility] Last Admin: 03/16/19 09:52 Dose: 1 tab Levetiracetam (Keppra Injection -) 500 mg IVPB BID [facility] Last Admin: 03/16/19 10:35 Dose: 500 mg Lorazepam (Ativan -) 1 mg PO Q12H PRN PRN Reason: ANXIETY Last Admin: 03/09/19 10:33 Dose: 1 mg Ondansetron HCl (Zofran Injection) 4 mg IVPUSH Q6H [facility] Last Admin: 03/16/19 11:04 Dose: 4 mg Oxycodone HCl (Roxicodone -) 5 mg PO Q4H PRN PRN Reason: Pain Level 8-10 BREAKTHROUGH Last Admin: 03/16/19 11:15 Dose: 5 mg Pantoprazole Sodium (Protonix Iv) 40 mg IVPUSH DAILY [facility] Last Admin: 03/16/19 09:53 Dose: 40 mg - Objective Vital Signs: Vital Signs Temperature 98.5 F 03/16/19 10:00 Pulse Rate 68 03/16/19 10:00 Respiratory Rate 20 03/16/19 10:00 Blood Pressure 101/67 03/16/19 10:00 O2 Sat by Pulse Oximetry (%) 99 03/16/19 09:00 Labs: CBC, BMP 03/16/19 05:42 03/16/19 05:42
--- NOTE | 2019-03-16 21:57 | PN ---
Progress Note, Physician Chief Complaint: abdominal pain History of Present Illness: 58 yo male who comes in complaining of abdominal pain. Abdominal pain was initially diffuse and now is more right lower quadrant. He has been stable postoperatively but has been febrile. Stable after IR drainge improving clinically. - Current Medication List Current Medications: Active Medications Acetaminophen (Tylenol -) 650 mg PO Q6H PRN PRN Reason: pain level 4-10 Last Admin: 03/15/19 21:14 Dose: 650 mg Albuterol/Ipratropium (Duoneb -) 1 amp NEB RQID [facility] Last Admin: 03/16/19 20:20 Dose: 1 amp Benzocaine/Menthol (Cepacol Lozenge -) 1 each MM Q4H PRN PRN Reason: SORE THROAT Last Admin: 03/07/19 20:47 Dose: 1 each Diphenhydramine HCl (Benadryl Injection -) 50 mg IVPUSH ONCE PRN PRN Reason: INSOMNIA Last Admin: 03/15/19 21:13 Dose: 50 mg Diphenhydramine HCl (Benadryl Injection -) 50 mg IVPUSH HS PRN PRN Reason: INSOMNIA Last Admin: 03/14/19 21:07 Dose: 50 mg Heparin Sodium (Porcine) (Heparin -) 5,000 unit SQ TID [facility] Last Admin: 03/16/19 14:43 Dose: 5,000 unit Hydrocortisone (Anusol 2.5% Hc Cream -) 1 applic [place] DAILY [facility] Last Admin: 03/16/19 09:53 Dose: 1 applic Piperacillin Sod/Tazobactam (Sod 4.5 gm/ Dextrose) 100 mls @ 200 mls/hr IVPB Q6H-IV [facility]; Protocol Last Admin: 03/16/19 15:23 Dose: 200 mls/hr Ibuprofen (Motrin -) 600 mg PO Q6H PRN PRN Reason: Pain Level 4-10 Last Admin: 03/16/19 05:45 Dose: 600 mg Lactobacillus Acidophilus (Bacid -) 1 tab PO DAILY [facility] Last Admin: 03/16/19 09:52 Dose: 1 tab Levetiracetam (Keppra Injection -) 500 mg IVPB BID [facility] Last Admin: 03/16/19 10:35 Dose: 500 mg Lorazepam (Ativan -) 1 mg PO Q12H PRN PRN Reason: ANXIETY Last Admin: 03/09/19 10:33 Dose: 1 mg Ondansetron HCl (Zofran Injection) 4 mg IVPUSH Q6H [facility] Last Admin: 03/16/19 16:32 Dose: 4 mg Oxycodone HCl (Roxicodone -) 5 mg PO Q4H PRN PRN Reason: Pain Level 8-10 BREAKTHROUGH Last Admin: 03/16/19 16:33 Dose: 5 mg Pantoprazole Sodium (Protonix Iv) 40 mg IVPUSH DAILY [facility] Last Admin: 03/16/19 09:53 Dose: 40 mg - Objective Vital Signs: Vital Signs Temperature 98.5 F 03/16/19 15:17 Pulse Rate 68 03/16/19 10:00 Respiratory Rate 20 03/16/19 15:17 Blood Pressure 122/75 03/16/19 15:17 O2 Sat by Pulse Oximetry (%) 99 03/16/19 09:00 Constitutional: Yes: Well Nourished, No Distress, Calm Eyes: Yes: Conjunctiva Clear, EOM Intact HENT: Yes: Atraumatic, Normocephalic Neck: Yes: Supple, Trachea Midline Cardiovascular: Yes: Regular Rate and Rhythm, S1, S2 Respiratory: Yes: Regular, CTA Bilaterally Gastrointestinal: Yes: Normal Bowel Sounds, Soft, Abdomen, Obese. No: Tenderness ...Rectal Exam: Yes: Deferred Genitourinary: No: CVA Tenderness - Left, CVA Tenderness - Right Breast(s): No: Mass, Skin Changes Musculoskeletal: No: Muscle Pain, Muscle Weakness Extremities: No: Cool, Cyanosis Edema: No Peripheral Pulses WNL: Yes Peripheral Pulses: Left Radial: 2+, Right Radial: 2+, Left Doralis Pedis: 2+, Right Dorsalis Pedis: 2+, Left Femoral: 2+, Right Femoral: 2+ Integumentary: Yes: Incision. No: Jaundice, Rash Wound/Incision: Yes: Clean/Dry, Well Approximated, Open to air Neurological: Yes: Alert, Oriented Psychiatric: Yes: Alert, Oriented Labs: CBC, BMP 03/16/19 05:42 03/16/19 05:42 Problem List - Problems (1) Perforated appendix Assessment/Plan: 58 yo male with Acute ruptured appendicitis POD#11 s/p laparoscopic appendectomy and IR drainage of intrabdominal abscess, gross fecal contamination of the abdomen, now resolving fevers. previous CT scan of the abdomen had no organized collections. He is passing flatus and has improved bowel sounds. IR drained intraabdominal abscess, which is a know possibility with such contramination. Patient short been improving since Continue diet continue IV antibiotics Adequate analgesia Discharge planning will follow Code(s): K35.32 - ACUTE APPENDICITIS WITH PERF AND LOC PERITONITIS, W/O ABSCS (2) Leukocytosis Code(s): D72.829 - ELEVATED WHITE BLOOD CELL COUNT, UNSPECIFIED Qualifiers: Leukocytosis type: bandemia Qualified Code(s): D72.825 - Bandemia (3) Abdominal pain in male Code(s): R10.9 - UNSPECIFIED ABDOMINAL PAIN (4) RLQ abdominal tenderness Code(s): R10.813 - RIGHT LOWER QUADRANT ABDOMINAL TENDERNESS Qualifiers: Presence of rebound: present Qualified Code(s): R10.823 - Right lower quadrant rebound abdominal tenderness
[2019-03-16] MEDS: ACETAMINOPHEN 325 MG TABLET (FP) PO PRN (22:54)
[2019-03-17] MEDS ORDERED: PIPERACILLIN/TAZOBACTAM 4.5 GM VIAL IVPB ONE ×4 (03:54→20:23)
[2019-03-17] MEDS ORDERED: DEXTROSE 5%-WATER 100 ML IVPB ONE ×4 (03:54→20:24)
[2019-03-17] MEDS: PIPERACILLIN/TAZOB 4.5 GM 4.5 GM in DEXTROSE 5%-WATER 100 ML IVPB SCH ×4 (03:57→21:44)
[2019-03-17] MEDS: LORazepam 1 MG TABLET PO PRN (04:30)
[2019-03-17] MEDS: ONDANSETRON 4 MG/2 ML VIAL IVPUSH SCH ×4 (04:30→21:47)
[2019-03-17] MEDS: HEPARIN NA (PORCINE) 5,000 UNITS/ML 1ML VIAL SQ SCH ×3 (05:59→21:44)
[2019-03-17] MEDS: ALBUTEROL SO4 2.5/IPRATROPIUM 0.5 INH SOL 3 ML VIAL.NEB. NEB SCH ×4 (07:13→19:52)
[2019-03-17 07:42] LABS: EOS % 3.5 % (0-4.5); HEMATOCRIT 37.2 % (35.4-49); HEMOGLOBIN 12.7 GM/dL (11.7-16.9); LYMPH % 15.2 % (8-40); MCH 30.2 pg (25.7-33.7); MEAN CELL VOLUME 88.8 fl (80-96); MEAN PLT VOLUME 6.9 fl (7.5-11.1); MONO % 8.1 % (3.8-10.2); NEUT % 72.2 % (42.8-82.8); RBC 4.19 M/mm3 (4.00-5.60); RDW 13.5 % (11.9-15.9)
[2019-03-17 08:04] LABS: BLOOD UREA NITROGEN 14.2 mg/dL (7-18); CALCIUM 8.5 mg/dL (8.5-10.1); MAGNESIUM 2.4 mg/dL (1.8-2.4); POTASSIUM 4.2 mmol/L (3.5-5.1)
[2019-03-17 08:52] LABS: PLATELET COUNT 488 K/MM3 (134-434)
[2019-03-17] MEDS: PANTOPRAZOLE SODIUM 40 MG VIAL IVPUSH SCH (08:59)
[2019-03-17] MEDS: LACTOBACILLUS ACIDOPHILUS 1 TABLET PO SCH (08:59)
[2019-03-17] MEDS: HYDROCORTISONE 2.5% TOPICAL CREAM 30 GM TUBE PR SCH (09:08)
[2019-03-17] MEDS: levETIRAcetam 500 MG/5 ML INJECTION VIAL IVPB SCH ×2 (10:12→23:02)
[2019-03-17] MEDS: ACETAMINOPHEN 325 MG TABLET (FP) PO PRN (13:44)
--- NOTE | 2019-03-17 14:30 | PN ---
Progress Note (short form) - Note Progress Note: patient sleeping MERLINE with drainage less cloudy c/o of abdominal pain with meals has remained afebrile / toleating PO diet well Vital Signs Period Temp Pulse Resp BP Sys/Cerna Pulse Ox Last 24 Hr 98.1 F-98.6 F 65-88 18-20 99-144/62-76 99 afebrile neck - jvd heart S1/S2 2/6SEM regular lungs clear bilat abd soft / appropriate tenderness RLQ drain to RLQ / mildly distended MERLINE with minimall drainage scrotum swollen right side - improved ext no edema / no calf tenderness CBC, BMP 03/17/19 05:36 03/17/19 05:36 Microbiology 03/11/19 14:24 Abscess Gram Stain - Final 03/11/19 14:24 Abscess Body Fluid Culture - Final Escherichia Coli Gamma Hemolytic Streptococcus 03/11/19 14:24 Abscess Anaerobic Culture - Final NO ANAEROBES WERE ISOLATED 03/06/19 20:00 Blood - Peripheral Venous Blood Culture - Final NO GROWTH AFTER 5 DAYS INCUBATION 03/06/19 18:00 Blood - Peripheral Venous Blood Culture - Final NO GROWTH AFTER 5 DAYS INCUBATION 03/06/19 19:20 Urine - Urine Clean Catch Urine Culture - Final NO GROWTH OBTAINED Active Medications Acetaminophen (Tylenol -) 650 mg PO Q6H PRN PRN Reason: pain level 4-10 Last Admin: 03/17/19 13:44 Dose: 650 mg Albuterol/Ipratropium (Duoneb -) 1 amp NEB RQID [facility] Last Admin: 03/17/19 11:11 Dose: 1 amp Benzocaine/Menthol (Cepacol Lozenge -) 1 each MM Q4H PRN PRN Reason: SORE THROAT Last Admin: 03/07/19 20:47 Dose: 1 each Diphenhydramine HCl (Benadryl Injection -) 50 mg IVPUSH ONCE PRN PRN Reason: INSOMNIA Last Admin: 03/15/19 21:13 Dose: 50 mg Diphenhydramine HCl (Benadryl Injection -) 50 mg IVPUSH HS PRN PRN Reason: INSOMNIA Last Admin: 03/16/19 22:51 Dose: 50 mg Heparin Sodium (Porcine) (Heparin -) 5,000 unit SQ TID [facility] Last Admin: 03/17/19 13:35 Dose: 5,000 unit Hydrocortisone (Anusol 2.5% Hc Cream -) 1 applic [place] DAILY [facility] Last Admin: 03/17/19 09:08 Dose: 1 applic Piperacillin Sod/Tazobactam (Sod 4.5 gm/ Dextrose) 100 mls @ 200 mls/hr IVPB Q6H-IV [facility]; Protocol Last Admin: 03/17/19 08:58 Dose: 200 mls/hr Ibuprofen (Motrin -) 600 mg PO Q6H PRN PRN Reason: Pain Level 4-10 Last Admin: 03/16/19 05:45 Dose: 600 mg Lactobacillus Acidophilus (Bacid -) 1 tab PO DAILY [facility] Last Admin: 03/17/19 08:59 Dose: 1 tab Levetiracetam (Keppra Injection -) 500 mg IVPB BID [facility] Last Admin: 03/17/19 10:12 Dose: 500 mg Lorazepam (Ativan -) 1 mg PO Q12H PRN PRN Reason: ANXIETY Last Admin: 03/17/19 04:30 Dose: 1 mg Ondansetron HCl (Zofran Injection) 4 mg IVPUSH Q6H [facility] Last Admin: 03/17/19 10:12 Dose: 4 mg Oxycodone HCl (Roxicodone -) 5 mg PO Q4H PRN PRN Reason: Pain Level 8-10 BREAKTHROUGH Last Admin: 03/16/19 22:55 Dose: 5 mg Pantoprazole Sodium (Protonix Iv) 40 mg IVPUSH DAILY [facility] Last Admin: 03/17/19 08:59 Dose: 40 mg # Perforated Waldo / s/p lap appendectomy febrile post op CT of abd c/w small collection - s/p IR drainage patient reports feeling much better s/p procedure tolerating diet well ambulate as tolerated continue nebulizer treatments drain in place less purulent ABX per ID will order CT of abd / pelvis in am #swollen scrotum keep elevated improved # Seizure disorder - petite mal Per neurology # OA stable chronic pain syndrome - followed by pain management as out patient
[2019-03-17] MEDS ORDERED: diphenhydrAMINE HCL 25 MG CAPSULE (FP) PO PRN (14:56)
[2019-03-17] MEDS: oxyCODONE HCL 5 MG TABLET PO PRN (15:09)
[2019-03-17] MEDS: oxyCODONE HCL 5 MG TABLET PO SCH ×2 (16:50→23:02)
[2019-03-17] MEDS: DOCUSATE SODIUM 100 MG CAPSULE (FP) PO SCH (21:44)
[2019-03-17] MEDS: POLYETHYLENE GLYCOL 3350 119 GM BTL PO SCH (21:45)
[2019-03-18] MEDS ORDERED: PIPERACILLIN/TAZOBACTAM 4.5 GM VIAL IVPB ONE ×4 (02:34→20:37)
[2019-03-18] MEDS ORDERED: DEXTROSE 5%-WATER 100 ML IVPB ONE ×4 (02:34→20:37)
[2019-03-18] MEDS: PIPERACILLIN/TAZOB 4.5 GM 4.5 GM in DEXTROSE 5%-WATER 100 ML IVPB SCH ×4 (02:38→21:55)
[2019-03-18] MEDS ORDERED: PT OWN MED DRAWER 7, Y5N ONE ×2 (02:44→10:24)
[2019-03-18] MEDS: BENZOCAINE/MENTH/CETYLPYRD CL 1 EACH LOZENGE MM PRN (02:45)
[2019-03-18] MEDS: ONDANSETRON 4 MG/2 ML VIAL IVPUSH SCH ×4 (05:14→21:55)
[2019-03-18] MEDS: oxyCODONE HCL 5 MG TABLET PO SCH ×3 (06:05→22:45)
[2019-03-18] MEDS: HEPARIN NA (PORCINE) 5,000 UNITS/ML 1ML VIAL SQ SCH ×3 (06:05→21:55)
[2019-03-18] MEDS: ALBUTEROL SO4 2.5/IPRATROPIUM 0.5 INH SOL 3 ML VIAL.NEB. NEB SCH ×4 (07:32→18:25)
[2019-03-18 07:52] LABS: BASO % 1.2 % (0-2.0); EOS % 3.2 % (0-4.5); HEMATOCRIT 37.5 % (35.4-49); HEMOGLOBIN 12.8 GM/dL (11.7-16.9); LYMPH % 13.7 % (8-40); MCHC 34.2 g/dl (32.0-35.9); MEAN CELL VOLUME 87.9 fl (80-96); MEAN PLT VOLUME 6.8 fl (7.5-11.1); MONO % 7.4 % (3.8-10.2); NEUT % 74.5 % (42.8-82.8); PLATELET COUNT 527 K/MM3 (134-434); RBC 4.27 M/mm3 (4.00-5.60); RDW 13.5 % (11.9-15.9); WHITE BLOOD COUNT 9.9 K/mm3 (4.0-10.0)
--- NOTE | 2019-03-18 08:24 | PN ---
Progress Note, Physician History of Present Illness: patient is stable no new issues drain has improved - Current Medication List Current Medications: Active Medications Acetaminophen (Tylenol -) 650 mg PO Q6H PRN PRN Reason: pain level 4-10 Last Admin: 03/17/19 13:44 Dose: 650 mg Albuterol/Ipratropium (Duoneb -) 1 amp NEB RQID [facility] Last Admin: 03/18/19 07:32 Dose: 1 amp Benzocaine/Menthol (Cepacol Lozenge -) 1 each MM Q4H PRN PRN Reason: SORE THROAT Last Admin: 03/18/19 02:45 Dose: 1 each Diphenhydramine HCl (Benadryl Injection -) 50 mg IVPUSH ONCE PRN PRN Reason: INSOMNIA Last Admin: 03/15/19 21:13 Dose: 50 mg Diphenhydramine HCl (Benadryl Injection -) 50 mg IVPUSH HS PRN PRN Reason: INSOMNIA Last Admin: 03/17/19 23:02 Dose: 50 mg Diphenhydramine HCl (Benadryl -) 50 mg PO Q6H PRN PRN Reason: FOR ITCHING Docusate Sodium (Colace -) 200 mg PO HS [facility] Last Admin: 03/17/19 21:44 Dose: 200 mg Heparin Sodium (Porcine) (Heparin -) 5,000 unit SQ TID [facility] Last Admin: 03/18/19 06:05 Dose: 5,000 unit Hydrocortisone (Anusol 2.5% Hc Cream -) 1 applic MS DAILY [facility] Last Admin: 03/17/19 09:08 Dose: 1 applic Piperacillin Sod/Tazobactam (Sod 4.5 gm/ Dextrose) 100 mls @ 200 mls/hr IVPB Q6H-IV [facility]; Protocol Last Admin: 03/18/19 02:38 Dose: 200 mls/hr Ibuprofen (Motrin -) 600 mg PO Q6H PRN PRN Reason: Pain Level 4-10 Last Admin: 03/16/19 05:45 Dose: 600 mg Lactobacillus Acidophilus (Bacid -) 1 tab PO DAILY [facility] Last Admin: 03/17/19 08:59 Dose: 1 tab Levetiracetam (Keppra Injection -) 500 mg IVPB BID [facility] Last Admin: 03/17/19 23:02 Dose: 500 mg Lorazepam (Ativan -) 1 mg PO Q12H PRN PRN Reason: ANXIETY Last Admin: 03/17/19 04:30 Dose: 1 mg Ondansetron HCl (Zofran Injection) 4 mg IVPUSH Q6H [facility] Last Admin: 03/18/19 05:14 Dose: 4 mg Oxycodone HCl (Roxicodone -) 5 mg PO Q4H PRN PRN Reason: Pain Level 8-10 BREAKTHROUGH Last Admin: 03/17/19 15:09 Dose: 5 mg Oxycodone HCl (Roxicodone -) 5 mg PO Q8H [facility] Stop: 03/19/19 23:59 Last Admin: 03/18/19 06:05 Dose: 5 mg Pantoprazole Sodium (Protonix Iv) 40 mg IVPUSH DAILY [facility] Last Admin: 03/17/19 08:59 Dose: 40 mg Polyethylene Glycol (Miralax (For Daily Use) -) 17 gm PO BID [facility] Last Admin: 03/17/19 21:45 Dose: 17 gm - Objective Vital Signs: Vital Signs Temperature 98.2 F 03/18/19 05:57 Pulse Rate 76 03/18/19 05:57 Respiratory Rate 18 03/18/19 05:57 Blood Pressure 111/61 03/18/19 05:57 O2 Sat by Pulse Oximetry (%) 99 03/17/19 21:00 Constitutional: Yes: No Distress, Calm HENT: Yes: Atraumatic, Normocephalic Cardiovascular: Yes: Regular Rate and Rhythm Respiratory: Yes: Regular, CTA Bilaterally Gastrointestinal: Yes: Normal Bowel Sounds, Soft, Other (drain in place) Musculoskeletal: Yes: WNL Extremities: Yes: WNL Neurological: Yes: Alert, Oriented Psychiatric: Yes: Alert, Oriented Labs: CBC, BMP 03/18/19 06:55 Assessment/Plan Problem List - Problems (1) Perforated appendix Code(s): K35.32 - ACUTE APPENDICITIS WITH PERF AND LOC PERITONITIS, W/O ABSCS (2) Leukocytosis Code(s): D72.829 - ELEVATED WHITE BLOOD CELL COUNT, UNSPECIFIED Qualifiers: Leukocytosis type: bandemia Qualified Code(s): D72.825 - Bandemia (3) Abdominal pain in male Code(s): R10.9 - UNSPECIFIED ABDOMINAL PAIN (4) RLQ abdominal tenderness Code(s): R10.813 - RIGHT LOWER QUADRANT ABDOMINAL TENDERNESS Qualifiers: Presence of rebound: present Qualified Code(s): R10.823 - Right lower quadrant rebound abdominal tenderness wbc trending down plan continue abx wbc has normalized will change to oral soon rest as per the team
[2019-03-18 08:41] LABS: BLOOD UREA NITROGEN 13.4 mg/dL (7-18); POTASSIUM 4.4 mmol/L (3.5-5.1)
[2019-03-18] MEDS: levETIRAcetam 500 MG/5 ML INJECTION VIAL IVPB SCH (10:32)
[2019-03-18] MEDS: POLYETHYLENE GLYCOL 3350 119 GM BTL PO SCH ×2 (10:33→21:56)
[2019-03-18] MEDS: LACTOBACILLUS ACIDOPHILUS 1 TABLET PO SCH (10:33)
[2019-03-18] MEDS: HYDROCORTISONE 2.5% TOPICAL CREAM 30 GM TUBE PR SCH (10:33)
[2019-03-18] MEDS: PANTOPRAZOLE SODIUM 40 MG VIAL IVPUSH SCH (10:33)
--- NOTE | 2019-03-18 12:13 | DS ---
Physical Examination Vital Signs: Vital Signs Temperature 98.2 F 03/18/19 05:57 Pulse Rate 76 03/18/19 05:57 Respiratory Rate 18 03/18/19 05:57 Blood Pressure 111/61 03/18/19 05:57 O2 Sat by Pulse Oximetry (%) 99 03/17/19 21:00 Vital Signs Period Temp Pulse Resp BP Sys/Cerna Pulse Ox Last 24 Hr 98.0 F-98.7 F 72-80 18-20 111-133/61-84 99 Intake & Output 03/17/19 03/18/19 03/18/19 23:59 07:59 15:59 Intake Total 600 100 150 Output Total 50 15 Balance 550 85 150 Intake: IVPB 400 Oral 200 100 150 Output: Drainage 50 15 Right Abdomen 50 15 Other: Voiding Method Toilet Toilet # Unmeasured Voids Void 1 1 Findings/Remarks: Stable past two days. Afebrile. Tolerating diet. voiding. He is stable for discharge home. Constitutional: Yes: Well Nourished, No Distress, Calm Eyes: Yes: Conjunctiva Clear, EOM Intact HENT: Yes: Atraumatic, Normocephalic Neck: Yes: Supple, Trachea Midline Cardiovascular: Yes: Regular Rate and Rhythm, S1, S2 Respiratory: Yes: Regular, CTA Bilaterally Gastrointestinal: Yes: Normal Bowel Sounds, Soft, Abdomen, Obese. No: Tenderness, Tenderness, Rebound ...Rectal Exam: Yes: Deferred Renal/: No: CVA Tenderness - Left, CVA Tenderness - Right Breast(s): No: Mass, Skin Changes Musculoskeletal: No: Muscle Pain, Muscle Weakness Extremities: No: Cool, Cyanosis Edema: No Peripheral Pulses WNL: Yes Peripheral Pulses: Left Radial: 2+, Right Radial: 2+, Left Doralis Pedis: 2+, Right Dorsalis Pedis: 2+, Left Femoral: 2+, Right Femoral: 2+ Integumentary: No: Jaundice, Pressure Ulcer, Rash Neurological: Yes: Alert, Oriented Psychiatric: Yes: Alert, Oriented Labs: CBC, BMP 03/18/19 06:55 03/18/19 06:55 Discharge Summary Reason For Visit: RUPTURE OF APPENDIX Current Active Problems Abdominal pain in male (Acute) Fever presenting with conditions classified elsewhere (Acute) Infection following a procedure, organ and space surgical site, initial encounter (Acute) Leukocytosis (Acute) Perforated appendix (Acute) RLQ abdominal tenderness (Acute) Umbilical hernia without mention of obstruction or gangrene (Acute) Vomiting (Acute) Procedures: Principal: Laparoscopic Appendectomy Other Procedures: Percutaneous Drainge of abscess Hospital Course: Admitted with a ruptured appendix. uneventful procedure. Developed an intraabdominal abscess which was drained by interventional radiology. Stable after several days on IV antibiotics. Repeat CT scan showed significant improvement in the size of the collection. Discharged home for routine followup. Condition: Improved - Instructions Diet, Activity, Other Instructions: Postoperative instructions: You had a laparoscopic appendectomy with primary umbilical hernia repair on 03/05/[address] Dale Cabrera of [facility]. You then had a percutaneous drain placed by Dr. Paul Cheney of Interventional Radiology on 03/11/19, for postop intraabdominal abscess. Activity: Resume your usual activities gradually, but no heavy exertion or lifting more than 10-15 pounds for 1 month. You may not shower while the drain is still in place; sponge bathe around the drain dressing only. Once the drain is removed, leave the dressing for 24-48 hours, then you may remove it and shower. No bath or swimming until skin incisions have fully healed. Eat lightly at first, but advance to your usual diet as tolerated. The drain bulb will need to be emptied and the volume of output recorded on at least a daily basis. Also empty and record if the bulb gets at least half full. Bring the record of outputs with you to your followup appointments with the surgeon and radiology. You may have a visiting nurse to check on the drain and your wounds while you are healing. Medications: For pain, you may use and alternate Tylenol (acetaminophen) 1-2 pills and/or ibuprofen 200 mg (1-3 pills) every 6 hours each as needed; this means that you can take one OR the other at 3-hour intervals. Do not take more than 4000mg of acetaminophen in a day. Take medications as prescribed or indicated on the labeling. You will complete your antibiotics at home - take all of the prescription as instructed, even if you are feeling better before it is gone. Eat yogurt daily or take a probiotic daily while you are taking antibiotics, and for at least a few days or a week afterward. Follow-up: Call Dr. Cabrera' office at [phone] to make your postop appointment (Monday in approximately 2 weeks after surgery). Clinic is held in the [facility] on the first floor of [facility]. Call the office if you have: * increasing pain not responsive to pain medication * fever of 101F or higher * vomiting * unusual or increasing bleeding or drainage from wounds * increasing redness or swelling at wound sites * inability to urinate Also, see your primary medical doctor within 1-2 weeks. You will also need to follow up with Dr. Cheney in Radiology in 7-10 days for possible drain removal. Referrals: Paul Cheney MD [Staff Physician] - Dale Cabrera MD [Staff Physician] - Disposition: HOME - Home Medications Comprehensive Discharge Medication List: Ambulatory Orders Citalopram Hydrobromide [Citalopram HBr] 20 mg PO DAILY 03/04/19 Lamotrigine 100 mg PO DAILY 03/04/19 Metoprolol/Hydrochlorothiazide [Metoprolol-Hctz 50-25 mg Tab] 1 each PO DAILY Oxycodone HCl/Acetaminophen [Percocet 10-325 mg Tablet] 1 each PO BID PRN Amox-Tr/K Cl [Augmentin - 875Mg Tablet] 1 tab PO BID 10 Days #20 tablet Oxycodone HCl/Acetaminophen [Percocet 5/325 -] 1 tab PO Q6H 5 Days #40 tab MDD 5 03/09/19
[2019-03-18] MEDS: levETIRAcetam 500 MG TABLET (FP) PO SCH (21:55)
[2019-03-18] MEDS: DOCUSATE SODIUM 100 MG CAPSULE (FP) PO SCH (21:55)
[2019-03-18] MEDS: PRAMIPEXOLE DIHYDROCHLORIDE 0.25 MG TABLET PO SCH (21:56)
--- NOTE | 2019-03-18 22:50 | PN ---
Progress Note (short form) - Note Progress Note: patient sleeping MERLINE with drainage less cloudy less abdominal discomfort has remained afebrile / tolerating PO diet well Vital Signs Period Temp Pulse Resp BP Sys/Cerna Pulse Ox Last 24 Hr 98.1 F-98.4 F 69-86 18-18 111-131/59-89 Layng in bed / afebrile neck - jvd heart S1/S2 2/6SEM regular lungs clear bilat abd soft / appropriate tenderness RLQ drain to RLQ / less distended and less tender scrotum swollen r - improved ext no edema / no calf tenderness CBC, BMP 03/18/19 06:55 03/18/19 06:55 CBC, BMP 03/17/19 05:36 03/17/19 05:36 Microbiology 03/11/19 14:24 Abscess Gram Stain - Final 03/11/19 14:24 Abscess Body Fluid Culture - Final Escherichia Coli Gamma Hemolytic Streptococcus 03/11/19 14:24 Abscess Anaerobic Culture - Final NO ANAEROBES WERE ISOLATED 03/06/19 20:00 Blood - Peripheral Venous Blood Culture - Final NO GROWTH AFTER 5 DAYS INCUBATION 03/06/19 18:00 Blood - Peripheral Venous Blood Culture - Final NO GROWTH AFTER 5 DAYS INCUBATION 03/06/19 19:20 Urine - Urine Clean Catch Urine Culture - Final NO GROWTH OBTAINED Active Medications Acetaminophen (Tylenol -) 650 mg PO Q6H PRN PRN Reason: pain level 4-10 Last Admin: 03/17/19 13:44 Dose: 650 mg Albuterol/Ipratropium (Duoneb -) 1 amp NEB RQID [facility] Last Admin: 03/18/19 18:25 Dose: 1 amp Benzocaine/Menthol (Cepacol Lozenge -) 1 each MM Q4H PRN PRN Reason: SORE THROAT Last Admin: 03/18/19 02:45 Dose: 1 each Diphenhydramine HCl (Benadryl Injection -) 50 mg IVPUSH ONCE PRN PRN Reason: INSOMNIA Last Admin: 03/15/19 21:13 Dose: 50 mg Diphenhydramine HCl (Benadryl Injection -) 50 mg IVPUSH HS PRN PRN Reason: INSOMNIA Last Admin: 03/18/19 21:55 Dose: 50 mg Diphenhydramine HCl (Benadryl -) 50 mg PO Q6H PRN PRN Reason: FOR ITCHING Docusate Sodium (Colace -) 200 mg PO HS [facility] Last Admin: 03/18/19 21:55 Dose: 200 mg Heparin Sodium (Porcine) (Heparin -) 5,000 unit SQ TID [facility] Last Admin: 03/18/19 21:55 Dose: 5,000 unit Hydrocortisone (Anusol 2.5% Hc Cream -) 1 applic AR DAILY [facility] Last Admin: 03/18/19 10:33 Dose: 1 applic Piperacillin Sod/Tazobactam (Sod 4.5 gm/ Dextrose) 100 mls @ 200 mls/hr IVPB Q6H-IV [facility]; Protocol Last Admin: 03/18/19 21:55 Dose: 200 mls/hr Ibuprofen (Motrin -) 600 mg PO Q6H PRN PRN Reason: Pain Level 4-10 Last Admin: 03/16/19 05:45 Dose: 600 mg Lactobacillus Acidophilus (Bacid -) 1 tab PO DAILY [facility] Last Admin: 03/18/19 10:33 Dose: 1 tab Levetiracetam (Keppra -) 500 mg PO BID [facility] Last Admin: 03/18/19 21:55 Dose: 500 mg Lorazepam (Ativan -) 1 mg PO Q12H PRN PRN Reason: ANXIETY Last Admin: 03/17/19 04:30 Dose: 1 mg Ondansetron HCl (Zofran Injection) 4 mg IVPUSH Q6H [facility] Last Admin: 03/18/19 21:55 Dose: 4 mg Oxycodone HCl (Roxicodone -) 5 mg PO Q4H PRN PRN Reason: Pain Level 8-10 [facility]ROUGH Last Admin: 03/17/19 15:09 Dose: 5 mg Oxycodone HCl (Roxicodone -) 5 mg PO Q8H [facility] Stop: 03/19/19 23:59 Last Admin: 03/18/19 22:45 Dose: 5 mg Pantoprazole Sodium (Protonix Iv) 40 mg IVPUSH DAILY [facility] Last Admin: 03/18/19 10:33 Dose: 40 mg Polyethylene Glycol (Miralax (For Daily Use) -) 17 gm PO BID [facility] Last Admin: 03/18/19 21:56 Dose: 17 gm Pramipexole Dihydrochloride (Mirapex -) 0.25 mg PO TID [facility] Last Admin: 03/18/19 21:56 Dose: 0.25 mg # Perforated Waldo / s/p lap appendectomy febrile post op CT of abd c/w small collection - s/p IR drainage tolerating diet well ambulate as tolerated continue nebulizer treatments drain in place less purulent ABX per ID Repeat Ct with decreased collection #swollen scrotum keep elevated improved # Seizure disorder - petite mal Per neurology # OA stable chronic pain syndrome - followed by pain management as out patient
[2019-03-19] MEDS ORDERED: PIPERACILLIN/TAZOBACTAM 4.5 GM VIAL IVPB ONE ×2 (01:53→08:45)
[2019-03-19] MEDS ORDERED: DEXTROSE 5%-WATER 100 ML IVPB ONE ×2 (01:53→08:45)
[2019-03-19] MEDS: PIPERACILLIN/TAZOB 4.5 GM 4.5 GM in DEXTROSE 5%-WATER 100 ML IVPB SCH ×3 (02:07→15:20)
[2019-03-19] MEDS: BENZOCAINE/MENTH/CETYLPYRD CL 1 EACH LOZENGE MM PRN (03:30)
[2019-03-19] MEDS: PRAMIPEXOLE DIHYDROCHLORIDE 0.25 MG TABLET PO SCH ×2 (05:46→13:38)
[2019-03-19] MEDS: HEPARIN NA (PORCINE) 5,000 UNITS/ML 1ML VIAL SQ SCH ×2 (05:46→13:38)
[2019-03-19] MEDS: ONDANSETRON 4 MG/2 ML VIAL IVPUSH SCH ×3 (05:46→16:07)
[2019-03-19] MEDS: oxyCODONE HCL 5 MG TABLET PO SCH ×2 (06:20→14:58)
[2019-03-19 08:36] LABS: BASO % 1.4 % (0-2.0); EOS % 3.2 % (0-4.5); HEMATOCRIT 37.6 % (35.4-49); HEMOGLOBIN 12.9 GM/dL (11.7-16.9); LYMPH % 15.5 % (8-40); MCH 30.1 pg (25.7-33.7); MCHC 34.2 g/dl (32.0-35.9); MEAN PLT VOLUME 6.8 fl (7.5-11.1); MONO % 7.9 % (3.8-10.2); PLATELET COUNT 510 K/MM3 (134-434); RBC 4.27 M/mm3 (4.00-5.60); RDW 13.5 % (11.9-15.9); WHITE BLOOD COUNT 8.6 K/mm3 (4.0-10.0)
[2019-03-19] MEDS: ALBUTEROL SO4 2.5/IPRATROPIUM 0.5 INH SOL 3 ML VIAL.NEB. NEB SCH ×2 (08:52→11:30)
[2019-03-19] MEDS: PANTOPRAZOLE SODIUM 40 MG VIAL IVPUSH SCH (09:01)
[2019-03-19] MEDS: levETIRAcetam 500 MG TABLET (FP) PO SCH (09:02)
[2019-03-19] MEDS: LACTOBACILLUS ACIDOPHILUS 1 TABLET PO SCH (09:02)
[2019-03-19] MEDS: HYDROCORTISONE 2.5% TOPICAL CREAM 30 GM TUBE PR SCH (09:03)
[2019-03-19] MEDS: POLYETHYLENE GLYCOL 3350 119 GM BTL PO SCH (09:05)
[2019-03-19 09:07] LABS: BLOOD UREA NITROGEN 12.2 mg/dL (7-18); CALCIUM 9.1 mg/dL (8.5-10.1); POTASSIUM 4.4 mmol/L (3.5-5.1)
--- NOTE | 2019-03-19 11:34 | PN ---
Progress Note, Physician History of Present Illness: stable no new issues still draining - Current Medication List Current Medications: Active Medications Acetaminophen (Tylenol -) 650 mg PO Q6H PRN PRN Reason: pain level 4-10 Last Admin: 03/17/19 13:44 Dose: 650 mg Albuterol/Ipratropium (Duoneb -) 1 amp NEB RQID [facility] Last Admin: 03/19/19 11:30 Dose: Not Given Benzocaine/Menthol (Cepacol Lozenge -) 1 each MM Q4H PRN PRN Reason: SORE THROAT Last Admin: 03/19/19 03:30 Dose: 1 each Diphenhydramine HCl (Benadryl Injection -) 50 mg IVPUSH ONCE PRN PRN Reason: INSOMNIA Last Admin: 03/15/19 21:13 Dose: 50 mg Diphenhydramine HCl (Benadryl Injection -) 50 mg IVPUSH HS PRN PRN Reason: INSOMNIA Last Admin: 03/18/19 21:55 Dose: 50 mg Diphenhydramine HCl (Benadryl -) 50 mg PO Q6H PRN PRN Reason: FOR ITCHING Docusate Sodium (Colace -) 200 mg PO HS [facility] Last Admin: 03/18/19 21:55 Dose: 200 mg Heparin Sodium (Porcine) (Heparin -) 5,000 unit SQ TID [facility] Last Admin: 03/19/19 05:46 Dose: 5,000 unit Hydrocortisone (Anusol 2.5% Hc Cream -) 1 applic MI DAILY [facility] Last Admin: 03/19/19 09:03 Dose: 1 applic Piperacillin Sod/Tazobactam (Sod 4.5 gm/ Dextrose) 100 mls @ 200 mls/hr IVPB Q6H-IV [facility]; Protocol Last Admin: 03/19/19 08:54 Dose: 200 mls/hr Ibuprofen (Motrin -) 600 mg PO Q6H PRN PRN Reason: Pain Level 4-10 Last Admin: 03/16/19 05:45 Dose: 600 mg Lactobacillus Acidophilus (Bacid -) 1 tab PO DAILY [facility] Last Admin: 03/19/19 09:02 Dose: 1 tab Levetiracetam (Keppra -) 500 mg PO BID [facility] Last Admin: 03/19/19 09:02 Dose: 500 mg Lorazepam (Ativan -) 1 mg PO Q12H PRN PRN Reason: ANXIETY Last Admin: 03/17/19 04:30 Dose: 1 mg Ondansetron HCl (Zofran Injection) 4 mg IVPUSH Q6H [facility] Last Admin: 03/19/19 10:25 Dose: 4 mg Oxycodone HCl (Roxicodone -) 5 mg PO Q4H PRN PRN Reason: Pain Level 8-10 BREAKTHROUGH Last Admin: 03/17/19 15:09 Dose: 5 mg Oxycodone HCl (Roxicodone -) 5 mg PO Q8H [facility] Stop: 03/19/19 23:59 Last Admin: 03/19/19 06:20 Dose: 5 mg Pantoprazole Sodium (Protonix Iv) 40 mg IVPUSH DAILY [facility] Last Admin: 03/19/19 09:01 Dose: 40 mg Polyethylene Glycol (Miralax (For Daily Use) -) 17 gm PO BID [facility] Last Admin: 03/19/19 09:05 Dose: 17 gm Pramipexole Dihydrochloride (Mirapex -) 0.25 mg PO TID [facility] Last Admin: 03/19/19 05:46 Dose: 0.25 mg - Objective Vital Signs: Vital Signs Temperature 97.8 F 03/19/19 10:00 Pulse Rate 80 03/19/19 10:00 Respiratory Rate 18 03/19/19 10:00 Blood Pressure 130/78 03/19/19 10:00 O2 Sat by Pulse Oximetry (%) 96 03/19/19 09:00 Constitutional: Yes: No Distress, Calm Cardiovascular: Yes: Regular Rate and Rhythm Respiratory: Yes: Regular, CTA Bilaterally Gastrointestinal: Yes: Normal Bowel Sounds, Soft, Other (drain in place) Musculoskeletal: Yes: WNL Extremities: Yes: WNL Neurological: Yes: Alert, Oriented Psychiatric: Yes: Alert, Oriented Labs: CBC, BMP 03/19/19 07:54 03/19/19 07:54 Assessment/Plan Problem List - Problems (1) Perforated appendix Code(s): K35.32 - ACUTE APPENDICITIS WITH PERF AND LOC PERITONITIS, W/O ABSCS (2) Leukocytosis Code(s): D72.829 - ELEVATED WHITE BLOOD CELL COUNT, UNSPECIFIED Qualifiers: Leukocytosis type: bandemia Qualified Code(s): D72.825 - Bandemia (3) Abdominal pain in male Code(s): R10.9 - UNSPECIFIED ABDOMINAL PAIN (4) RLQ abdominal tenderness Code(s): R10.813 - RIGHT LOWER QUADRANT ABDOMINAL TENDERNESS Qualifiers: Presence of rebound: present Qualified Code(s): R10.823 - Right lower quadrant rebound abdominal tenderness wbc trending down plan can change to po augmentin for at least 10 more days rest as per the team
--- NOTE | 2019-03-19 13:13 | PN ---
Progress Note (short form) - Note Progress Note: NEUROLOGY PROGRESS: Events reviewed and discussed with staff. PT was found febrile post op and required secondary IR drainage and po antibiotics. Now tolerating po diet and leviteracitam IV -> 500 mg po Q12H without reports of seizure. PT states he would like to transition back to lamictal. Reports ongoing insomnia and residual abdominal pain, and at home normally takes benadryl to aide in sleep. Some help with addition of roxicodone 5 mg HS. Is considering a consult with a neurosurgeon for ongoing back pain in [place]. Iron studies reveal Iron 27, TIBC 207%, Iron sat= 13% NEURO: Awake, alert, oriented x 3. CNII-CNXII: Normal. Motor: Normal strength and reflexes. Coordination: No FTN dystaxia. Sensation: Normal. Impression: Seizure disorder by history Nocturnal paresthesia, bruxism and chronic insomnia suggestive of Restless Limbs (worsened by Iron Deficiency Anemia and nocturnal Benadryl Rx) Low back pain Suggest: Continue leveteracitam 500 mg po BID at this time- Pt understands he cannot switch back to Lamotrigine without consulting his Neurologist. Try pramipexole 0.25 mg TID Avoid anti-histamines as this may worsen RLS-related symptoms as discussed with patient Once more ambulatory and with regular bowel movements, consider addition of FeSO4 325 mg po qd Neuro f/u as outpatient for RLS, repeat EMGs of arms/legs and possibly further neuroimaging of back. Thank you very much, Boby White MD
--- NOTE | 2019-03-19 13:51 | CON.GU ---
Consult Consult Specialty:: Referred by:: Rick Reason for Consultation:: hydrocele - History of Present Illness Chief Complaint: hydrocele History of Present Illness: 58 year old male with ruptured appy. Developed a reactive hydrocele during this admission. He is concerned. It is uncomfotable. It did not exist prior to admission. He is able to void - History Source History Provided By: Patient - Past Medical History Cardio/Vascular: Yes: HTN Hepatobiliary: Yes: Other (hereditary hemochromatosis and undergoes phlebotomy) Renal/: No: BPH, Renal Calculi, UTI Musculoskeletal: Yes: Osteoarthritis - Past Surgical History Past Surgical History: Yes: Joint Replacement (TKR bilaterally, right hip replacement) - Alcohol/Substance Use Hx Alcohol Use: Yes (QUIT 2 YRS AGO) History of Substance Use: reports: None - Smoking History Smoking history: Never smoked - Social History Usual Living Arrangement: With Spouse ADL: Independent 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 History of Recent Travel: No Home Medications - Allergies Allergies/Adverse Reactions: Allergies Allergy/AdvReac Type Severity Reaction Status Date / Time aloe Allergy Unknown Verified 03/07/19 15:28 - Home Medications Home Medications: Ambulatory Orders Citalopram Hydrobromide [Citalopram HBr] 20 mg PO DAILY 03/04/19 Lamotrigine 100 mg PO DAILY 03/04/19 Metoprolol/Hydrochlorothiazide [Metoprolol-Hctz 50-25 mg Tab] 1 each PO DAILY Oxycodone HCl/Acetaminophen [Percocet 10-325 mg Tablet] 1 each PO BID PRN Amox-Tr/K Cl [Augmentin - 875Mg Tablet] 1 tab PO BID 10 Days #20 tablet Oxycodone HCl/Acetaminophen [Percocet 5/325 -] 1 tab PO Q6H 5 Days #40 tab MDD 5 03/09/19 Family Disease History - Family Disease History Family Disease History: Other: Father (: 57: Liver cancer (HH)), Mother ( Alive: healthy), Brother (4, healthy), Sister (3, healthy), Son (2, healthy (1 HH mutation carrier) ), Daughter (1, healthy) Other Family History: No family h/o colon cancer Review of Systems - Review of Systems Genitourinary: reports: Testicular Pain, Testicular Swelling. denies: Dysuria, Flank Pain, Frequency Physical Exam- Vital Signs: Vital Signs Temperature 97.8 F 03/19/19 10:00 Pulse Rate 80 03/19/19 10:00 Respiratory Rate 18 03/19/19 10:00 Blood Pressure 130/78 03/19/19 10:00 O2 Sat by Pulse Oximetry (%) 96 03/19/19 09:00 Scrotum: Yes: Hydrocele Labs: CBC, BMP 03/19/19 07:54 03/19/19 07:54 Imaging - Results Ultrasound: Report Reviewed Problem List - Problems (1) Hydrocele, acquired Assessment/Plan: reactive from appy. elevation and outpatient follow up. Code(s): N43.3 - HYDROCELE, UNSPECIFIED
[2019-03-19 14:23] VITALS: BP 115/73; PULSE 73; TEMP 98.2
== END 2019-03-19 16:00 | disposition home or self-care (01) | DRG 338 ==
LOC: FER 20:16 → J7W 03-05 01:00
PROC: 0DTJ4ZZ Resection of Appendix, Percutaneous Endoscopic Approach (ICD-10-PCS; principal; 2019-03-08)
PROC: 0WQF4ZZ Repair Abdominal Wall, Percutaneous Endoscopic Approach (ICD-10-PCS; 2019-03-08)
PROC: 3E1M38Z Irrigation of Peritoneal Cavity using Irrigating Substance, Percutaneous Approach (ICD-10-PCS; 2019-03-08)
PROC: 0W9J30Z Drainage of Pelvic Cavity with Drainage Device, Percutaneous Approach (ICD-10-PCS; 2019-03-11)
DX: K35.33 Acute appendicitis with perforation, localized peritonitis, and gangrene, with abscess (principal); G93.41 Metabolic encephalopathy; T81.43XA Infection following a procedure, organ and space surgical site, initial encounter; K91.89 Other postprocedural complications and disorders of digestive system; N13.30 Unspecified hydronephrosis; D72.829 Elevated white blood cell count, unspecified; R10.823 Right lower quadrant rebound abdominal tenderness; K42.9 Umbilical hernia without obstruction or gangrene; G40.909 Epilepsy, unspecified, not intractable, without status epilepticus; R11.2 Nausea with vomiting, unspecified; I10 Essential (primary) hypertension; G47.00 Insomnia, unspecified; M19.90 Unspecified osteoarthritis, unspecified site; E83.110 Hereditary hemochromatosis; R14.0 Abdominal distension (gaseous); R10.9 Unspecified abdominal pain; Z87.891 Personal history of nicotine dependence; G25.81 Restless legs syndrome; E66.8 Other obesity; Z68.33 Body mass index [BMI] 33.0-33.9, adult; E87.6 Hypokalemia; R11.10 Vomiting, unspecified; K31.89 Other diseases of stomach and duodenum; M54.5 Low back pain; N43.2 Other hydrocele; R50.81 Fever presenting with conditions classified elsewhere; G89.4 Chronic pain syndrome; G47.63 Sleep related bruxism; N50.89 Other specified disorders of the male genital organs; B96.29 Other Escherichia coli [E. coli] as the cause of diseases classified elsewhere; B95.2 Enterococcus as the cause of diseases classified elsewhere; Y83.8 Other surgical procedures as the cause of abnormal reaction of the patient, or of later complication, without mention of misadventure at the time of the procedure; Z96.641 Presence of right artificial hip joint; Z96.653 Presence of artificial knee joint, bilateral
CPT/HCPCS: 36415; 49406; 71045-TC-FY; 71046-TC-FY; 74019-TC-FY; 74176-TC; 74177-TC; 76098-TC-FY; 76380-TC; 76870-TC; 80048; 80053; 81003; 81015; 82550; 83540; 83550; 83605; 83735; 84100; 84484; 85025; 87040; 87070; 87075; 87086; 87186; 87205; 87899; 88302-TC; 88304-TC; 94010; 94640; 94760; 97116-GP; 97161-GP; 99283-25; C1729; C1769; J0131; J1644; J7030; Q9967

== ENCOUNTER 2019-04-07 11:08 | Inpatient (IN) | payer OTHER | END 2019-04-14 12:30 | disposition home or self-care (01) | LOC: JER 11:08 → JERBED 17:19 → J7W 22:06 ==